=== PATIENT | male | born 1955 | race Caucasian/White ===

== ENCOUNTER → 2018-04-03 13:51 | Outpatient (CLI) | payer MEDICARE, SELFPAY ==
--- NOTE | 2018-04-03 13:58 | CDU_ITS ---
Version 2 Reason For Study: PELON Rt. Velocities/BP Lt. Velocities/BP Prox CCA 61.3/13.4 cm/sec. Prox CCA 83.8/15.2 cm/sec. Mid CCA 64.8/18.1 cm/sec. Mid CCA 76.2/15.8 cm/sec. Dist CCA 73.9/20.5 cm/sec. Dist CCA 58.5/15.7 cm/sec. Prox ICA 35.9/10.5 cm/sec. Prox ICA 109/35.4 cm/sec. Mid ICA 53.8/20.8 cm/sec. Mid ICA 58.8/11.8 cm/sec. Dist ICA 43.3/17.4 cm/sec. Dist ICA 56.2/20.4 cm/sec. Rt. ICA/CCA = 0.83. Lt. ICA/CCA = 1.43. Prox ECA 112/25.1 cm/sec. Prox ECA 138/26.5 cm/sec. Rt. Vert. 38.9/13.7 cm/sec. Lt. Vert. 39.7/10.2 cm/sec. Right Extracranial There is homogeneous, smooth atherosclerotic plaque noted in the right common carotid artery. There is homogeneous, smooth atherosclerotic plaque noted in the right internal carotid artery. There is intimal thickening but no significant atherosclerotic plaque noted in the right external carotid artery. Antegrade flow is noted in the right vertebral artery. There is homogeneous, smooth atherosclerotic plaque noted in the right bulb. Left Extracranial There is homogeneous, smooth atherosclerotic plaque noted in the left common carotid artery. There is heterogeneous, smooth atherosclerotic plaque noted in the left internal carotid artery. There is intimal thickening but no significant atherosclerotic plaque noted in the left external carotid artery. Antegrade flow is noted in the left vertebral artery. Procedure Carotid Duplex [id number]. Exam performed in department. Interpretation Summary Mild (<50%) stenosis right extracranial internal carotid. Mild (<50%) stenosis left extracranial internal carotid. Flow within the vertebral arteries is antegrade bilaterally. A small amount of homogeneous, smooth atherosclerotic plaque is noted in the right carotid bulb, which does not appear to be hemodynamically significant. Ordering Physician: Home Higginbotham Referring Physician: Sincere Lundberg Performed By: Leslee Boss RVT and Student
== END ==
PROVIDERS: Family Provider Family Medicine; PCP Family Medicine; Referring Provider Internal Medicine; Visit Provider Internal Medicine
DX: I65.23 Occlusion and stenosis of bilateral carotid arteries (principal)
CPT/HCPCS: 93880

== ENCOUNTER 2018-10-21 11:01 | Inpatient (IN) | payer MEDICARE, SELFPAY ==
[2018-10-21] VITALS (11 sets, daily range): BP systolic 153–207; BP diastolic 83–123; PULSE 81–93; RESP 16–18; TEMP 36.4–36.8; O2SAT 90–99; BMI 24.8; BMI 25.0
--- NOTE | 2018-10-21 11:39 | RAD_ITS ---
STUDY: X-RAY CHEST REASON FOR EXAM: Male, 63 years old. Chest pain TECHNIQUE: Frontal and lateral views of the chest COMPARISON: None. FINDINGS: The lungs are clear. There are no pleural effusions. There is no pneumothorax. The heart is normal in size. The patient is status post sternotomy. The visualized osseous structures are within normal limits. RAD/Chest PA and Lateral IMPRESSION: No acute thoracic pathology. Electronically Signed: Omer Goldberg, at 12:39 EDT Tel , Service support ,
--- NOTE | 2018-10-21 11:39 | EKG12_ITS ---
Test Reason : FATIGUE Blood Pressure : / mmHG Vent. Rate : 085 BPM Atrial Rate : 085 BPM P-R Int : 134 ms QRS Dur : 090 ms QT Int : 408 ms P-R-T Axes : 041 -02 158 degrees QTc Int : 485 ms Normal sinus rhythm Possible Left atrial enlargement ST & T wave abnormality, consider anterolateral ischemia Prolonged QT Abnormal ECG Confirmed by RAKAN BURNS, PERCY ([id number]), editor managing director VIJAY NOE ([id number]) on 10/23/2018 9:28:59 AM Referred By: Felicia Garcia Confirmed By:PERCY BLEDSOE MD
--- NOTE | 2018-10-21 11:39 | CT_ITS ---
STUDY: CT BRAIN WITHOUT CONTRAST REASON FOR EXAM: Male, 63 years old. Facial numbness RADIATION DOSAGE (If Supplied By Facility): CTDIvol = ( 44.99 ) mGy, DLP = ( 812.98 ) mGycm TECHNIQUE: Transaxial CT imaging of the brain was performed without administration of intravenous contrast material. Individualized dose optimization techniques were used for this CT. COMPARISON: None. FINDINGS: There are old subcentimeter lacunar infarcts in the left basal ganglia and internal capsule. There is no acute bleed or infarct. There are chronic ischemic and atrophic changes. The ventricles are normal in configuration. There is no hydrocephalus. The visualized paranasal sinuses are clear. The mastoid air cells are well aerated. There is no skull fracture. CT/Brain/Head without Contrast IMPRESSION: Old subcentimeter lacunar infarcts in the left basal ganglia and left internal capsule. No acute intracranial abnormality. Chronic ischemic and atrophic changes. Electronically Signed: Omer Goldberg, at 12:25 EDT Tel , Service support ,
--- NOTE | 2018-10-21 11:46 | ED.VIS.GEN ---
History of Present Illness Chief Complaint: Fatigue Informant: Patient Onset: Month(s) Narrative: Patient is a 63-year-old male presenting with multiple complaints including fatigue, sweats, weight loss and abdominal discomfort. Patient states over the past 2 months he symptoms have been worsening. He states that he also feels that he has a knot his stomach. He states his bowel movements have been normal denies any black or bloody stools. He denies any nausea or vomiting. He has had an unintentional 10 pound weight loss over this time. He is also been having sweats but today there is especially severe. Patient denies any associated chest pain, shortness of breath or difficulty breathing. He states this feels different than his angina. Patient also notes that over the past 2 months has had worsening numbness of his right face and loss of taste on the right side of his tongue. He states he has some mild numbness in this area since carotid endarterectomy 2 years ago but the symptoms have worsened over the past 2 months. Patient denies any fever. He has had a mild cough is been nonproductive. He denies any urinary symptoms. He denies any extremity weakness or loss of sensation. He denies any change in his speech. Patient makes a comment that hit one point he was told that he had Crohn's disease but then saw a specialist in [place] who said that he did not. Patient does not currently take any medications on a daily basis. Past Medical History - Allergies and Home Meds Allergies/Adverse Reactions: Allergies codeine Adverse Reaction (Verified 10/21/18 11:02) Upset Stomach Primary Care Physician: Care Physician,No Primary [Primary Care Provider] - Past Medical History: - - Coronary artery disease, history of GA Surgical History: - - Right carotid endarterectomy Lives: Spouse/ Significant Other Smoking Status: Former smoker Review of Systems All systems negative except as indicated General: Reports: Malaise, Sweats Eyes: Denies: Visual changes - bilaterally Respiratory: Reports: Cough Gastrointestinal: Reports: Abdominal pain - knot in stomach Neurological: Reports: Numbness - face, right, - - loss of taste, right side Physical Exam Vital Signs/Narrative: Vital Signs Temp Pulse Resp BP Pulse Ox 10/21/18 11:03 97.6 F L 90 17 207/123 H 99 Inital Vital Signs reviewed: Yes General: Well nourished, Well developed, No Acute Distress Head: Normocephalic, Atraumatic Eyes: Perrl, EOMI ENT: No rhinorrhea, Dry mucous membranes Neck: Supple, Nontender. Negative for: No JVD Cardiovascular: Regular rate, Regular rhythm, No murmurs. Negative for: Murmur Respiratory: No distress, CTA bilaterally, Chest nontender Abdomen: Soft, Nontender, Nondistended, Normal bowel sounds Back: Nontender, Normal Inspection Extremities: Nontender, No edema Skin: Normal color, No rash Neurological: Alert, Oriented x3, Cranial nerves II-XII grossly intact - No Tongue deviation noted, Normal Strength, Parasthesia - Right face, - - NIH - 1 (Facial paresthesia). Negative for: Weakness, Left side facial droop, Right side facial droop Psychological: Normal affect, Normal Mood Diagnostic/Tx/Re-eval Chest X-Ray - ED: 2 View, Read by ED Physician, Read by Radiologist, No Acute Disease Laboratory Results - last 24 hr 10/21/18 10/21/18 10/21/18 11:53 11:53 12:35 WBC 9.4 RBC 5.02 Hgb 14.0 Hct 42.9 MCV 85.5 MCH 27.9 MCHC 32.6 RDW Std Deviation 42.1 RDW Coeff of [place] 13.5 Plt Count 285 MPV 10.8 Immature Gran % (Auto) 0.200 Neut % (Auto) 83.7 H Lymph % (Auto) 9.0 L [place] % (Auto) 6.3 Eos % (Auto) 0.4 Baso % (Auto) 0.4 Absolute Neuts (auto) 7.9 H Absolute Lymphs (auto) 0.84 Nucleated RBC % 0 Sodium 139 Potassium 3.4 L Chloride 104 Carbon Dioxide 25.0 Anion Gap 10 BUN 12 Creatinine 1.38 H Estim Creat Clear Calc 50.73 Est GFR (MDRD) Af Amer 67 Est GFR (MDRD) Non-Af 56 L BUN/Creatinine Ratio 8.7 L Glucose 155 H Calcium 8.6 Total Bilirubin 0.30 AST 11 L ALT 17 Alkaline Phosphatase 108 Troponin I < 0.015 Total Protein 7.3 Albumin 3.4 Globulin 3.9 Albumin/Globulin Ratio 0.9 Lipase 117 Urine Color Yellow Urine Clarity Clear Urine pH 7.0 Ur Specific Reserve 1.010 Urine Protein Negative Urine Glucose (UA) Normal Urine Ketones Negative Urine Occult Blood 50 H Urine Nitrite Negative Urine Bilirubin Negative Urine Urobilinogen Normal Ur Leukocyte Esterase Negative Urine RBC 0-5 SEEN Urine WBC 0-5 SEEN Ur Squamous Epith Cells 0 SEEN Urine Bacteria 0 SEEN Urine Mucus 0 SEEN Diagnostic Data Brain CT 10/21/18 11:39 IMPRESSION: Old subcentimeter lacunar infarcts in the left basal ganglia and left internal capsule. No acute intracranial abnormality. Chronic ischemic and atrophic changes. Electronically Signed: Omer Goldberg, at 12:25 EDT Tel , Service support , Chest X-Ray 10/21/18 11:39 IMPRESSION: No acute thoracic pathology. Electronically Signed: Omer Goldberg, at 12:39 EDT Tel , Service support , - Rhythm Strip Rhythm Strip: Sinus Rhythm Rate: 85 Ectopy: None - EKG Initial EKG Interpretation: - - Normal sinus rhythm WI interval 134 QRS 90 QT/QTc 408/485 Normal axis T wave and inversions in leads I, aVL, V3 through V6, no reciprocal changes - Medical Decision Making Patient is evaluated for sweats, weight loss, generalized myalgia as well as worsening facial paresthesias. Patient does have an NIH of 1 for subjective paresthesias of his face. He is given aspirin in the emergency room after negative head CT. Is not clear if this is a stroke that causes paresthesias however I do think he would benefit from admission for further neurologic evaluation. Patient is not a candidate for TPA regardless because of his right score and the timing of his symptoms. Patient is an abnormal EKG however is not having a STEMI. His troponin is negative and he is not having chest pain. Do not suspect a cardiac cause of his symptoms at this time. In addition patient does have an elevation of his creatinine. His last creatinine was 0.9 however this was in 2013. Patient was given IV fluids. Patient is hypertensive in the emergency room however he does not take blood pressure medications in the ER. It does not require emergent intervention but will be continued to be monitored on the general medical floor. Patient will be admitted to the PCU for further stroke evaluation as well as hydration. He is agreeable with this plan. He is stable at time of disposition. ED Disposition - Plan for ED Patient: Disposition: Home or Assisted Living Diagnosis: Facial paresthesia, TOMMY (acute kidney injury) Referrals: Care Physician,No Primary [Primary Care Provider] -
[2018-10-21 11:58] LABS: Absolute Lymphocyte Count 0.84 X10^3/uL (0.83-4.51); Absolute Neutrophil Count 7.9 X10^3/uL (2.0-7.7); Basophil# 0.04 X10^3/uL; Basophil% 0.4 % (0-1); Eosinophil# 0.04 X10^3/uL; Eosinophils% 0.4 % (0-5); Hematocrit 42.9 % (40-54); Lymphocyte # 0.84 X10^3/ul (4.0); Mean Corp Hgb Conc 32.6 g/dL (32-36); Mean Corpuscular Hgb 27.9 pg (27.0-32.0); Mean Corpuscular Volume 85.5 fL (80-94); Mean Platelet Vol. 10.8 fl (6.2-12.0); Monocyte# 0.59 X10^3/uL; Monocyte% 6.3 % (0-10); NRBC Flagged by Analyzer 0 % (0-5); Neutrophil # 7.85 X10^3/uL (2.7-7.7); Neutrophil % 83.7 % (47-70); Platelet Count 285 K/mm3 (150-450); RBC Distribution Width CV 13.5 % (11.6-14.6); RBC Distribution Width SD 42.1 fl (35.1-43.9); Red Blood Count 5.02 M/mm3 (4.6-6.2); White Blood Count 9.4 K/mm3 (4.4-11.0)
[2018-10-21] MEDS: 0.9% Normal Saline 1,000 ML 1000 ML IV (11:58)
[2018-10-21 12:16] LABS: ALB/GLOB Ratio 0.9 RATIO (0.9-2.4); AST(SGOT) 11 U/L (15-37); Alanine Aminotransfer ALT/SGPT 17 U/L (16-61); Albumin, Serum 3.4 g/dL (3.2-5.0); Alkaline Phosphatase 108 U/L (45-117); Anion Gap 10 (5-15); BUN 12 mg/dL (7-18); BUN/Creat Ratio 8.7 RATIO (10-20); Calcium,Total 8.6 mg/dL (8.5-10.1); Chloride 104 mmol/L (98-107); Creatinine, Serum 1.38 mg/dL (0.70-1.30); EST Glomerular Filtration Rate 56 mL/min (>60); Est Glom Filt Rate - Afr Amer 67 mL/min (>60); Estimated Creatinine Clearance 50.73 ml/min; Globulin 3.9 g/dL (2.2-4.2); Glucose 155 mg/dL (74-106); Lipase 117 U/L (73-393); Potassium 3.4 mmol/L (3.5-5.1); Protein, Total 7.3 g/dL (6.4-8.2); Sodium Level 139 mmol/L (136-145)
[2018-10-21 12:39] LABS: Bacteria 0 SEEN /hpf (None Seen); Mucous, Urine 0 SEEN /hpf (<or=2+); Squamous Epithelial Cells - UA 0 SEEN /hpf (0-5)
[2018-10-21 12:45] LABS: Color, Urine Yellow (Yellow); Glucose, Dipstick Normal (Normal); Ketone-Dipstick Negative (Negative); Leukocyte Esterase-Dipstick Negative /ul (Negative); Nitrite-Dipstick Negative (Negative); Occult Blood-Urine 50 /ul (Negative); Protein-Dipstick Negative (Negative); Urine Bilirubin Dipstick Negative (Negative); Urine Clarity Clear (Clear); Urine Urobilinogen Normal (Normal)
[2018-10-21 13:05] LABS: Red Blood Cells-Urine 0-5 SEEN /hpf (0-5); White Blood Cells 0-5 SEEN /hpf (0-5)
[2018-10-21] MEDS: Aspirin 325 MG Tablet PO (13:42)
--- NOTE | 2018-10-21 14:38 | PCM.HP.STD ---
<Torsten Matias - Last Filed: 10/21/18 14:38> Problem List (1) TOMMY (acute kidney injury) Status: Acute (2) HTN (hypertension) Status: Chronic (3) CAD (coronary artery disease) Status: Chronic (4) HLD (hyperlipidemia) Status: Chronic (5) history of ischemic stroke Status: Chronic History of Present Illness Date of Admission: 10/21/18 Chief Complaint: diaphoresis, generalized weakness The patient is a 63 year old M with pmhx of CAD with prior stents and CABG, pt of Dr. Higginbotham, hx of stroke with residual right facial parasthesias, hx of carotid endarterectomy, who presents to the ER with c/o sudden onset of diaphoresis and generalized weakness. The diaphoresis is what made him come to the ER. He was standing in his kitchen, not exerting himself, and suddenly broke into a severe sweat and felt weak. He did not feel hot at all. He did not have CP or SOB during this, and did not get dizzy or LH. He has not experienced this prior to today. He has had other complaints that have been occurring over the past month. This includes progressive worsening of the right facial parasthesias including loss of taste on the right side of the tongue. His forehead is spared from the parasthessias. He has no other focal weakness. He also complains that for at least a month he has had a knot in his stomach, has poor appetite, has lost 10 lbs. The patient takes no medications. He states he became frustrated with the amount of medications he was on and took himself off of them. 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 Higginbotham about 6 months ago and has an appointment tomorrow. He recently had a carotid US due to the worsening facial numbness, this was not remarkable for a cause of his parasthesias. Today in the ER his BP is markedly elevated initially 207/123, EKG has ST and T wave changes, Creatinine is somewhat elevated, and CT brain is nonacute.[] Past Medical History Past Medical History (Chronic Problems): Chronic Problems HTN (hypertension) (Chronic) CAD (coronary artery disease) (Chronic) HLD (hyperlipidemia) (Chronic) Tobacco user (Chronic) History of myocardial infarction (Chronic) history of ischemic stroke (Chronic) Hypercholesteremia (Chronic) Allergies codeine Adverse Reaction (Verified 10/21/18 11:02) Upset Stomach Home Medications: Ambulatory Orders Medication Instructions Recorded NK 10/21/18 Surgical History: coronary bypass surgery, - - Right carotid endarterectomy Psychiatric History: No pertinent psych hx Lives: Spouse/ Significant Other Smoking Status: Former smoker Tobacco Use: Non-smoker Alcohol: None Drugs: None - *Family History Paternal History Items: Heart Disease Maternal History Items: Unknown Review of Systems Constitutional: Reports: Weakness, Fatigue. Denies: Chills, Fever, Weight Change HEENT: Denies: Head Aches, Sinus Congestion, Sinus Drainage Cardiovascular: Denies: Chest Pain, Palpitations Respiratory: Denies: Cough, Shortness of Breath, Shortness of breath at rest, Shortness of breath upon exertion, Sputum production, Wheezing Gastrointestinal: Denies: Abdominal Pain, Diarrhea, Nausea, Vomiting Genitourinary: Denies: Dysuria Musculoskeletal: Denies: Joint Pain, Joint Tenderness Skin: Denies: Lesions, Rash, Wounds Neurological: Reports: Numbness, - - loss of taste. Denies: Change in Speech, Slurred speech, Confusion, Difficulty swallowing, Focal weakness, Tingling Psychiatric: Denies: Anxiety, Depression, Homicidal Ideations, Suicidal Ideations Hematologic/ Lymphatic: Denies: Easy Bruising, Easy Bleeding VTE Information - Inpt Only VTE Present on Admission: No VTE Mechan Device Prophylaxis: None VTE Pharm Prophylaxis ordered?: Yes Patient Problems: Active and Suspected Problems Facial paresthesia (Acute) TOMMY (acute kidney injury) (Acute) - Physical Exam General: Alert, Oriented x3, Cooperative HEENT: Atraumatic, PERRLA, EOMI, Normocephalic Neck: Supple, No JVD, Negative Carotid Bruits Lungs: Clear to auscultation, Normal air movement Cardiovascular: Regular rate, No murmurs Abdomen: Bowel Sounds Present, Soft, Non Tender Extremities: No edema, Capillary Refill Less than 3 Seconds Skin: No rashes, No breakdown, Incision - healed right carotid endarterectomy, healed sternotomy, - - right face birthmark hyperpigmentation Musculoskeletal: No Tenderness to Palpation of Joints or Extremities Neurological: Cranial nerves II-XII grossly intact Psych/Mental Status: Normal Affect, Appropriate, Alert and oriented to time, place, person, mood and affect Vital Signs Temp Pulse Resp BP Pulse Ox 97.6 F L 84 17 176/108 H 99 10/21/18 11:03 10/21/18 13:39 10/21/18 11:03 10/21/18 13:39 10/21/18 13:39 Oxygen Delivery Method Room Air Weight: 154 lb Body Mass Index (BMI) 24.8 Intake and Output for Last 24 Hours 10/19/18 10/20/18 10/21/18 23:59 23:59 23:59 Intake Total 1000 / 1000 Balance 1000 / 1000 Laboratory Tests Past 24 Hrs 10/21/18 10/21/18 10/21/18 11:53 11:53 12:35 WBC 9.4 RBC 5.02 Hgb 14.0 Hct 42.9 MCV 85.5 MCH 27.9 MCHC 32.6 RDW Std Deviation 42.1 RDW Coeff of [place] 13.5 Plt Count 285 MPV 10.8 Immature Gran % (Auto) 0.200 Neut % (Auto) 83.7 H Lymph % (Auto) 9.0 L [place] % (Auto) 6.3 Eos % (Auto) 0.4 Baso % (Auto) 0.4 Absolute Neuts (auto) 7.9 H Absolute Lymphs (auto) 0.84 Nucleated RBC % 0 Sodium 139 Potassium 3.4 L Chloride 104 Carbon Dioxide 25.0 Anion Gap 10 BUN 12 Creatinine 1.38 H Estim Creat Clear Calc 50.73 Est GFR (MDRD) Af Amer 67 Est GFR (MDRD) Non-Af 56 L BUN/Creatinine Ratio 8.7 L Glucose 155 H Calcium 8.6 Total Bilirubin 0.30 AST 11 L ALT 17 Alkaline Phosphatase 108 Troponin I < 0.015 Total Protein 7.3 Albumin 3.4 Globulin 3.9 Albumin/Globulin Ratio 0.9 Lipase 117 Urine Color Yellow Urine Clarity Clear Urine pH 7.0 Ur Specific [place] 1.010 Urine Protein Negative Urine Glucose (UA) Normal Urine Ketones Negative Urine Occult Blood 50 H Urine Nitrite Negative Urine Bilirubin Negative Urine Urobilinogen Normal Ur Leukocyte Esterase Negative Urine RBC 0-5 SEEN Urine WBC 0-5 SEEN Ur Squamous Epith Cells 0 SEEN Urine Bacteria 0 SEEN Urine Mucus 0 SEEN Assessment/Plan All Active Problems Facial paresthesia (Acute) TOMMY (acute kidney injury) (Acute) 1. Worsening right facial parasthesias, diaphoresis - CT brain non acute. hx stroke with prior Right carotid endarterectomy. Obtain MRI brain and echo. Start aspirin and statin. prn hydralazine if SBP >200. Consider Neuro consult. Check B12 and TSH. Recent carotid US in EMR. <50% stenosis BL. UA is negative. CXR is negative. PTOT for generalized debility and with ST part of stroke workup. q4h NIHSS. FLP in AM. 2. CAD with prior EKG with ST and T wave abnormalities - need to obtain EKG from recent cardiology visit (Dr. Higginbotham) for comparison. Diaphoresis is alarming, as is his complete lack of any daily medication, and the presence of EKG abnormalities. Trop is negative. This will need cycled, he will need to stay on tele, and he will need an echo in the AM. Repeat EKG in AM. 3. TOMMY - IV fluids overnight. BMP in AM. Replace K. 4. hx CVA - some right sided facial numbness is chronic, but it is much worse lately. 5. Chronic lower back pain - Pt of Dr. Montague. Treats this conservatively on his own. DVT ppx: heparin DC planning: PTOT, stroke workup. This patient was seen by Torsten Matias PA-C under the supervision of Dr. Garcia. <Felicia Garcia - Last Filed: 10/21/18 16:50> History of Present Illness The patient is a 63 year old M [] Past Medical History Allergies codeine Adverse Reaction (Verified 10/21/18 11:02) Upset Stomach - Physical Exam Vital Signs Temp Pulse Resp BP Pulse Ox 97.8 F 84 16 165/102 H 90 10/21/18 16:15 10/21/18 16:23 10/21/18 16:23 10/21/18 16:23 10/21/18 16:23 Oxygen Delivery Method Room Air Weight: 70.2 kg Body Mass Index (BMI) 25.0 Intake and Output for Last 24 Hours 10/19/18 10/20/18 10/21/18 23:59 23:59 23:59 Intake Total 1000 / 1000 Balance 1000 / 1000 Laboratory Tests Past 24 Hrs 10/21/18 10/21/18 10/21/18 11:53 11:53 11:53 WBC 9.4 RBC 5.02 Hgb 14.0 Hct 42.9 MCV 85.5 MCH 27.9 MCHC 32.6 RDW Std Deviation 42.1 RDW Coeff of [place] 13.5 Plt Count 285 MPV 10.8 Immature Gran % (Auto) 0.200 Neut % (Auto) 83.7 H Lymph % (Auto) 9.0 L [place] % (Auto) 6.3 Eos % (Auto) 0.4 Baso % (Auto) 0.4 Absolute Neuts (auto) 7.9 H Absolute Lymphs (auto) 0.84 Nucleated RBC % 0 Sodium 139 Potassium 3.4 L Chloride 104 Carbon Dioxide 25.0 Anion Gap 10 BUN 12 Creatinine 1.38 H Estim Creat Clear Calc 50.73 Est GFR (MDRD) Af Amer 67 Est GFR (MDRD) Non-Af 56 L BUN/Creatinine Ratio 8.7 L Glucose 155 H Hemoglobin A1c 5.2 Calcium 8.6 Total Bilirubin 0.30 AST 11 L ALT 17 Alkaline Phosphatase 108 Troponin I < 0.015 Total Protein 7.3 Albumin 3.4 Globulin 3.9 Albumin/Globulin Ratio 0.9 Lipase 117 Vitamin B12 TSH Urine Color Urine Clarity Urine pH Ur Specific [place] Urine Protein Urine Glucose (UA) Urine Ketones Urine Occult Blood Urine Nitrite Urine Bilirubin Urine Urobilinogen Ur Leukocyte Esterase Urine RBC Urine WBC Ur Squamous Epith Cells Urine Bacteria Urine Mucus 10/21/18 10/21/18 10/21/18 11:53 12:35 15:25 WBC RBC Hgb Hct MCV MCH MCHC RDW Std Deviation RDW Coeff of [place] Plt Count MPV Immature Gran % (Auto) Neut % (Auto) Lymph % (Auto) [place] % (Auto) Eos % (Auto) Baso % (Auto) Absolute Neuts (auto) Absolute Lymphs (auto) Nucleated RBC % Sodium Potassium Chloride Carbon Dioxide Anion Gap BUN Creatinine Estim Creat Clear Calc Est GFR (MDRD) Af Amer Est GFR (MDRD) Non-Af BUN/Creatinine Ratio Glucose Hemoglobin A1c Calcium Total Bilirubin AST ALT Alkaline Phosphatase Troponin I Total Protein Albumin Globulin Albumin/Globulin Ratio Lipase Vitamin B12 Pending TSH 0.64 Urine Color Yellow Urine Clarity Clear Urine pH 7.0 Ur Specific [place] 1.010 Urine Protein Negative Urine Glucose (UA) Normal Urine Ketones Negative Urine Occult Blood 50 H Urine Nitrite Negative Urine Bilirubin Negative Urine Urobilinogen Normal Ur Leukocyte Esterase Negative Urine RBC 0-5 SEEN Urine WBC 0-5 SEEN Ur Squamous Epith Cells 0 SEEN Urine Bacteria 0 SEEN Urine Mucus 0 SEEN 10/21/18 15:25 WBC RBC Hgb Hct MCV MCH MCHC RDW Std Deviation RDW Coeff of [place] Plt Count MPV Immature Gran % (Auto) Neut % (Auto) Lymph % (Auto) [place] % (Auto) Eos % (Auto) Baso % (Auto) Absolute Neuts (auto) Absolute Lymphs (auto) Nucleated RBC % Sodium Potassium Chloride Carbon Dioxide Anion Gap BUN Creatinine Estim Creat Clear Calc Est GFR (MDRD) Af Amer Est GFR (MDRD) Non-Af BUN/Creatinine Ratio Glucose Hemoglobin A1c Calcium Total Bilirubin AST ALT Alkaline Phosphatase Troponin I < 0.015 Total Protein Albumin Globulin Albumin/Globulin Ratio Lipase Vitamin B12 TSH Urine Color Urine Clarity Urine pH Ur Specific [place] Urine Protein Urine Glucose (UA) Urine Ketones Urine Occult Blood Urine Nitrite Urine Bilirubin Urine Urobilinogen Ur Leukocyte Esterase Urine RBC Urine WBC Ur Squamous Epith Cells Urine Bacteria Urine Mucus Assessment/Plan This patient was seen in conjunction with GINI Benito. I have independently interviewed and examined the patient and reviewed pertinent historical, laboratory, and other data. Please refer to GINI Benito note for his patient's presentation, findings, and recommendations. I have reviewed and his note and concur with his documentation CC: Diaphoresis, generalized weakness HPI: 63-year-old male past medical history of CAD status post CABG, history of carotid endarterectomy who comes in with sudden onset of diaphoresis and generalized weakness. He denied any associated chest pain or shortness of breath or dizziness or palpitation. He has not eaten today but does not believe is related to low blood sugar. He complains also of progressive worsening right facial paresthesia and loss of taste to the right side of the tongue and tingling numbness to the lips. This has been ongoing for years but worsening over the past 1 year. He also complains of poor appetite with weight loss. Cannot remember when he last had his colonoscopy. He has not followed up with a primary care doctor. He has taken himself off all his medications and currently takes no medications. PMHX: As above PSHx: s/p CABG and left carotid endarterectomy FHX: Father has heart disease, mother - unknown SHX: Denies any history of alcohol illicit drug use or smoking Physical Exam: Vitals: BP 207/123 on arrival, temperature 97.6 F, heart rate is 90, respiratory 70, SPO2 is 99% on room air Gen: Comfortable, not pale, not jaundiced, well-hydrated CVS:HS I +II, regular, no murmurs RESP: Clinically clear to auscultation GI: BS present and normal, soft, nontender, no palpable organs EXT:No edema Labs: CBCD is unremarkable, sodium is 139, potassium 3.4, chloride 104, bicarbonate 25, BUN 12, creatinine 1.38, HbA1c is 5.2, troponins x2 is negative EKG shows T wave depression in lead I, II, aVL, V3 to V6. He has EKG shows normal sinus rhythm and this was in 2010 before his CABG ASSESSMENT: 1. Generalized weakness/debility, unclear etiology 2. TOMMY, likely prerenal 3. Hypokalemia 4. Hypertensive urgency 5. Acute on chronic paresthesias 6. History of CABG/left carotid endarterectomy Plan: Admit to PCU, monitor on telemetry IV fluids, repeat blood work in a.m. Replace potassium Monitor blood pressure, hydralazine as needed MRI of the brain; positive, would need neurology consult Trend troponins, repeat EKG in a.m. Aspirin 81 mg p.o. daily, atorvastatin 20 mg p.o. daily, lipid profile in a.m. Code Visit Inpatient E&M: 98321 Init Hosp L3
--- NOTE | 2018-10-21 15:07 | ECHOD_ITS ---
Reason For Study: TIA/CVA Procedure This was a 2D Doppler, Color Flow transthoracic echocardiogram. Exam performed portable in patient room. Left Ventricle Normal LV size. The estimated ejection fraction is 20 %. Stage 2 diastolic dysfunction. No regional wall motion abnormalities noted. Right Ventricle Normal RV size. Normal systolic function. Atria Normal left atrium. Normal right atrium. Mitral Valve Bileaflet diffuse mitral valve thickening. Mild (1+) eccentric mitral valve insufficiency. Tricuspid Valve Normal tricuspid valve. Moderate (2+) tricuspid valve insufficiency. Moderate pulmonary hypertension. Pulmonary artery systolic pressure is 70 mmHg. Aortic Valve Trisinus/trileaflet aortic valve. Mild focal aortic valve calcification. Mild (1+) aortic valve insufficiency. Pulmonic Valve Normal pulmonic valve. Great Vessels Normal aortic root. The pulmonary artery is normal size. Normal inferior vena cava. Pericardium/Pleural No pericardial effusion. Medication Negative bubble study on previous echo. MMode/2D Measurements & Calculations LVIDd: 4.9 cm IVSd: 1.2 cm Ao root diam: 4.1 cm LVIDs: 4.3 cm LVPWd: 1.1 cm RVDd: 3.0 cm FS: 11.6 % LAV(MOD-bp): 64.2 ml EDV(MOD-sp4): 123.1 ml EDV(MOD-sp2): 121.6 ml LAV(MOD-bp) Indexed: 35.9 ml/m2 ESV(MOD-sp4): 96.6 ml EF(MOD-sp2): 16.2 % LAV(MOD-sp2): 59.9 ml EF(MOD-sp4): 21.5 % LAV(MOD-sp4): 64.6 ml SV(MOD-sp4): 26.4 ml SV(MOD-sp2): 19.7 ml LA A4 area: 20.3 cm2 LA dimension(2D): 3.9 cm RA A4 area: 15.7 cm2 Doppler Measurements & Calculations MV E max anthony: 111.8 cm/sec Lat Peak E' Anthony: 4.2 cm/sec Med Peak E' Anthony: 4.1 cm/sec MV A max anthony: 74.9 cm/sec E/E' lat: 26.6 E/E' med: 27.5 MV E/A: 1.5 Ao V2 max: 171.4 cm/sec LV V1 max: 84.6 cm/sec PA V2 max: 85.9 cm/sec Ao max P.7 mmHg LV V1 max P.9 mmHg TR max anthony: 399.2 cm/sec TR max P.9 mmHg Interpretation Summary Normal LV size. The estimated ejection fraction is 20 %. Stage 2 diastolic dysfunction. Moderate pulmonary hypertension. Pulmonary artery systolic pressure is 70 mmHg. The global longitudinal strain is severely abnormal. The global longitudinal strain = -7.1% (abnormal). Ordering Physician: Felicia Garcia Referring Physician: Felicia Garcia Performed By: Kasey Phoenix RDCS
[2018-10-21] MEDS: 0.9% Normal Saline 1,000 ML 100 ML IV (15:39)
[2018-10-21 15:40] LABS: Hemoglobin A1c 5.2 % (4.2-6.3)
[2018-10-21 15:57] LABS: Thyroid Stim Hormone (TSH) 0.64 uIU/mL (0.358-3.74)
[2018-10-21] MEDS: Atorvastatin Calcium 20 MG Tablet PO (21:14)
[2018-10-21] MEDS: Heparin Injection (Vial) 5,000 UNIT/ML VIAL 5000 UNIT SC (21:20)
[2018-10-21] MEDS: MELATONIN 3 MG TABLET PO (21:49)
[2018-10-22] VITALS (21 sets, daily range): BP systolic 141–186; BP diastolic 85–120; PULSE 77–105; RESP 14–18; TEMP 36.5–36.7; O2SAT 93–99
[2018-10-22] MEDS: 0.9% Normal Saline 1,000 ML 100 ML IV (00:59)
[2018-10-22] MEDS: Heparin Injection (Vial) 5,000 UNIT/ML VIAL 5000 UNIT SC ×2 (05:39→21:28)
[2018-10-22 05:50] LABS: Absolute Lymphocyte Count 2.03 X10^3/uL (0.83-4.51); Absolute Neutrophil Count 4.7 X10^3/uL (2.0-7.7); Basophil# 0.04 X10^3/uL; Basophil% 0.5 % (0-1); Eosinophil# 0.02 X10^3/uL; Eosinophils% 0.3 % (0-5); Hematocrit 39.9 % (40-54); Hemoglobin 13.3 g/dL (13.0-16.5); Lymphocyte # 2.03 X10^3/ul (4.0); Lymphocyte % 27.1 % (19-41); Mean Corp Hgb Conc 33.3 g/dL (32-36); Mean Corpuscular Hgb 28.7 pg (27.0-32.0); Mean Platelet Vol. 11.3 fl (6.2-12.0); Monocyte# 0.67 X10^3/uL; Monocyte% 8.9 % (0-10); NRBC Flagged by Analyzer 0 % (0-5); Neutrophil # 4.73 X10^3/uL (2.7-7.7); Neutrophil % 63.1 % (47-70); Platelet Count 262 K/mm3 (150-450); RBC Distribution Width CV 13.6 % (11.6-14.6); RBC Distribution Width SD 42.9 fl (35.1-43.9); Red Blood Count 4.64 M/mm3 (4.6-6.2); White Blood Count 7.5 K/mm3 (4.4-11.0)
[2018-10-22 06:13] LABS: ALB/GLOB Ratio 0.9 RATIO (0.9-2.4); AST(SGOT) 14 U/L (15-37); Alanine Aminotransfer ALT/SGPT 16 U/L (16-61); Albumin, Serum 2.9 g/dL (3.2-5.0); Alkaline Phosphatase 89 U/L (45-117); Anion Gap 8 (5-15); BUN 13 mg/dL (7-18); BUN/Creat Ratio 11.9 RATIO (10-20); Calcium,Total 8.3 mg/dL (8.5-10.1); Chloride 112 mmol/L (98-107); Cholesterol 198 mg/dL (200); Creatinine, Serum 1.09 mg/dL (0.70-1.30); EST Glomerular Filtration Rate 73 mL/min (>60); Est Glom Filt Rate - Afr Amer 88 mL/min (>60); Estimated Creatinine Clearance 64.22 ml/min; Globulin 3.3 g/dL (2.2-4.2); Glucose 93 mg/dL (74-106); High Density Lipoprotein 33 mg/dL; Potassium 3.8 mmol/L (3.5-5.1); Protein, Total 6.2 g/dL (6.4-8.2); Sodium Level 144 mmol/L (136-145); Triglycerides 233 mg/dL; Very Low Density Lipoprotein 47 mg/dL (5-40)
--- NOTE | 2018-10-22 08:30 | MRI_ITS ---
STUDY: MRI BRAIN WITHOUT CONTRAST REASON FOR EXAM: Male, 63 years old. CVA. Increased fatigue. History of prior CVA with residual right facial paresthesias. TECHNIQUE: Standardized multiplanar fat and water weighted pulse sequences were obtained. COMPARISON: CT head without contrast 10/21/2018. FINDINGS: No restricted diffusion to suspect acute or subacute ischemic infarct. Normal size of the ventricles and extra-axial spaces for the patient's age. Few white matter T2 FLAIR hyperintensity foci in both cerebral hemispheres are chronic white matter ischemic changes. They are in the central low convexities and in the periventricular white matter. Old lacunar cystic infarcts in the right parietal lobe subcortical white matter and in the left anterior periventricular white matter. Normal bilateral basal ganglia. Normal thalami. There is no extra-axial fluid accumulation. Normal flow voids within the major intracranial circulation suggesting patency by spin echo criteria. Normal sella turcica, pituitary gland, infundibular stalk, optic chiasm and hypothalamus. Normal tectal plate and pineal gland. Old lacunar cystic infarcts in the right and left central pontine tegmentum and chronic ischemic changes across the central pontine tegmentum. Normal midbrain and medulla. Normal cerebellum. Normal basal cisterns. Normal bilateral temporal bones. Normal bilateral internal auditory canals. No demonstrated orbital abnormality, within the constraints of a routine brain study. Normal visualized paranasal sinuses. Normal calvarium and skull base. Normal visualized soft tissue structures. Normal visualized upper cervical spine. MRI/Brain without Contrast IMPRESSION: 1. No MRI evidence of acute or subacute ischemic infarct or acute intracranial abnormality. 2. Old lacunar cystic infarcts in the right and left central pontine tegmentum and surrounded by chronic ischemic changes across the central pontine tegmentum. 3. Old lacunar cystic infarct in the right parietal lobe subcortical white matter and old lacunar linear cystic infarct in the left anterior periventricular white matter. 4. Few chronic white matter ischemic changes in both cerebral hemispheres. Electronically Signed: Jatinder Powell MD at 10:05 EDT , Service support ,
[2018-10-22 08:45] LABS: Vitamin B12 334 pg/mL (211-911)
[2018-10-22] MEDS: Aspirin 81 MG TAB.CHEW PO (09:53)
--- NOTE | 2018-10-22 10:15 | CASEMGMT ---
RN CM RELOCATION DIRECTOR CM to room to meet with patient for initial transition planning/care coordination assessment. EFREM ALDRICH introduced self and role at [facility]. Pt voices understanding and consents to assessment at this time. Pt resting in bed in no distress at this time. Pt is A/O at this time and answers all questions appropriately. Care providers, pharmacy, and demographics verified/updated at this time. PCP: No PCP. Given list of local PCP's. Specialists: Dr Galen Higginbotham--library technology instructor in [place]. Preferred Pharmacy: [facility] Insurance: [employer] A [employer] B. Prescription Benefit: Denies. States he has no concerns w/paying for any prescriptions he may be discharged home on. Living Will/HPOA: Has both LW and HCPOA, who is his , Harper. He states he will see if she can bring in copies to place on file @ [facility]. LNOK: . 2 Sons Living Arrangements: Lives with his . Son lives with them. Pt states he is independent. Transportation: Pt states drives self and states no transportation concerns at this time. will drive him home @ D/C DME: Denies using any DME and denies needs. HHC/SNF: No history of either and denies needs. No needs identified. Pt wishes to return home and states has no concerns with going home at time of discharge. CM to follow for any further discharge planning/needs. Pt voices no further concerns/needs at this time. Advised pt to ask for CM if any further questions/concerns/needs arise. Voices understanding. PLAN: Home w/spousal support and discharge plans in place. Alexia POPE RN, CM
[2018-10-22] MEDS: 0.9% NaCl Peripheral Flush Adult/Peds IV (11:10)
[2018-10-22] MEDS: hydrALAZINE 20 MG/ML Vial 5 MG IV (11:50)
--- NOTE | 2018-10-22 13:02 | NURSING ---
Called report to Elizabeth TOPETE in [place] lab technician
--- NOTE | 2018-10-22 13:27 | CON.PCM_ITS ---
Reason for Consult Date of Consultation: 10/22/18 Reason for Consultation: Abnormal echocardiogram. History of Present Illness: The patient is a 63 year old M with a past miss medical history of coronary artery disease status post previous, coronary artery bypass surgery approximately 5 years ago. He also has a history of carotid endarterectomy and he presented to the emergency room with episodes of diaphoresis generalized weakness. He did not have any chest pain or shortness of breath or paroxysmal nocturnal dyspnea. He says that for about a month he is lost some weight he has had paresthesias and he is also had abdominal discomfort. He recently had a carotid ultrasound for worsening facial numbness. In the emergency room he presented and was noted to have markedly elevated blood pressure. EKG changes were also noted. An echocardiogram was performed today and he was noted to have severely reduced left ventricular ejection fraction which was global estimated at approximately 20%. Audiology was called to evaluate him. Past Medical History Allergies/Adverse Reactions: Allergies codeine Adverse Reaction (Verified 10/21/18 11:02) Upset Stomach Home Medications: Ambulatory Orders Medication Instructions Recorded NK 10/21/18 Past Medical History (Chronic Problems): Chronic Problems HTN (hypertension) (Chronic) CAD (coronary artery disease) (Chronic) HLD (hyperlipidemia) (Chronic) Tobacco user (Chronic) History of myocardial infarction (Chronic) history of ischemic stroke (Chronic) Hypercholesteremia (Chronic) Surgical History: coronary bypass surgery, - - Right carotid endarterectomy Psychiatric History: No pertinent psych hx - *Family History Paternal History Items: Heart Disease Maternal History Items: Unknown Lives: Spouse/ Significant Other Smoking Status: Former smoker Tobacco Use: Non-smoker Alcohol: None Drugs: None Review of Systems - Review of Systems General: Denies: Fever, Night Sweats, Fatigue HEENT: Denies: Vision Change Cardiovascular: Denies: Chest Discomfort, Shortness of Breath, Orthopnea, PND, Peripheral Edema, Palpitations, Lightheadedness, Dizziness, Near Syncope, Syncope Respiratory: Denies: Cough, Sputum Production, Hemoptysis Gastrointestinal: Denies: Indigestion, Hematemesis, Hematochezia, Melena Genitourinary: Denies: Dysuria, Hematuria Muscoloskeletal: Denies: Myalgias Skin: Denies: Rash Neurological: Denies: Dizziness Psychiatric: Denies: Anxiety Endocrine: Denies: Heat Intolerance Hematologic/ Lymphatic: Denies: Anemia Subjectve: Pleasant gentleman in no distress Objective: Vital Signs Temp Pulse Resp BP Pulse Ox 97.8 F 103 H 18 179/98 H 96 10/22/18 12:49 10/22/18 12:49 10/22/18 12:49 10/22/18 12:49 10/22/18 12:49 Oxygen Delivery Method Room Air Weight: 158 lb 1.143 oz Body Mass Index (BMI) 25.0 Intake and Output for Last 24 Hours 10/20/18 10/21/18 10/22/18 23:59 23:59 23:59 Intake Total 1737 / 2287 3063.33 / 3063.33 Output Total 1920 / 1920 Balance 1737 / 2287 1143.33 / 1143.33 General: Awake, Alert, Oriented x 3 HEENT: PERRL, EOMI, Sclera Non Icteric Neck: Supple, Good ROM, No Lymph Node Enlargement Lungs: Clear to auscultation Cardiovascular: Regular Rhythm, Normal S1, Normal S2, No Murmurs, No Rubs, No Gallops Vascular: No Carotid Bruits, Normal Femoral Pulses, Normal Radial Pulses, Normal Dorsalis Pedal Pulse, Normal Posterior Tibial Pulses Abdomen: Bowel Sounds Present, Soft, Non Tender, No HSM, No Organomegaly Extremities: No Cyanosis, No Clubbing, No edema Musculoskeletal: No Erythema Skin: No Rashes Lymphatic: No Lymph Node Enlargement Neurological: No Focal Motor or Sensory Deficit Psych/Mental Status: Appropriate 10/21/18 11:53: Hemoglobin A1c 5.2 10/21/18 15:25: Troponin I < 0.015 10/21/18 18:07: Troponin I < 0.015 10/22/18 05:24: WBC 7.5, RBC 4.64, Hgb 13.3, Hct 39.9 L, MCV 86.0, MCH 28.7, MCHC 33.3, Plt Count 262, MPV 11.3, Immature Gran % (Auto) 0.100, Neut % (Auto) 63.1, Lymph % (Auto) 27.1, [place] % (Auto) 8.9, Eos % (Auto) 0.3, Baso % (Auto) 0.5, Absolute Neuts (auto) 4.7, Nucleated RBC % 0 10/22/18 05:24: Sodium 144, Potassium 3.8, Chloride 112 H, Carbon Dioxide 24.0, Anion Gap 8, BUN 13, Creatinine 1.09, Est GFR (MDRD) Af Amer 88, Est GFR (MDRD) Non-Af 73, BUN/Creatinine Ratio 11.9, Glucose 93, Calcium 8.3 L, Total Bilirubin 0.30, Triglycerides 233 H, Cholesterol 198, LDL Cholesterol 118, VLDL Cholesterol 47 H, HDL Cholesterol 33 L Rhythm: EKG: ECHO: Stress Test: Cardiac Cath: PCI: CT Surgery: Holter monitor: EPS: PPM: CXR: Chest CT Scan: Assessment/Plan 1. Abnormal left ventricular ejection fraction * Patient presents with symptoms that are nondescript markedly hypertensive and has an abnormal ejection fraction estimated to be 20%. The etiology of the above is unclear but ischemic cardiomyopathy needs to be excluded and therefore he will undergo a left heart catheterization and depending on the findings further recommendations will be made. The risk benefits alternatives were explained to him he understands and agrees to proceed. * 2. Hypertension * Blood pressure appears to be uncontrolled at this time and I suspect that this may be the etiology for his reduced ejection fraction. He does not appear to be segmental and therefore coronary disease may be unlikely or unrelated. * Appropriate adjustments to his blood pressure medication will be made afterwards. * Coronary artery bypass surgery * He does have a history of coronary artery bypass surgery but he has not had any cardiac evaluation in years and has also not been on any medications. * Have been able to convince him that he should start on secondary prevention and once again this will be forced after all this has transpired. * Will start low-dose statin with pravastatin. Patient has not tolerated other statins in the past. * Thank you for allowing me to participate in his care. * Addendum: Cardiac catheterization undertaken via the left radial artery. Left internal mammary artery noted to be patent and filling the left anterior descending artery as well as fixed filling distal right collaterals Totally occluded proximal right coronary artery Left main coronary artery with 40% proximal and 50% distal stenosis Left anterior descending artery totally occluded Left circumflex artery with moderate diffuse disease Aortogram demonstrating no other bypass grafts noted Left ventriculogram demonstrating globally reduced left ventricular systolic function estimated at 25% Severe hypertension Based on the above angiographic findings it appears that the left ventricular systolic dysfunction is due to a combination of severe hypertension as well as coronary artery disease. The plan would be to continue to aggressively treat him as noted above. Would like to observe today and discharge him in a.m.
--- NOTE | 2018-10-22 13:39 | PCM.PROGNOTE ---
Patient Problems: Active and Suspected Problems Facial paresthesia (Acute) TOMMY (acute kidney injury) (Acute) Subjective: Since admission, pt c/o a dry cough, and a posterior headache with neck pain. He has no SOB or LE edema. He has no increased O2 demand. No CP/pressure/palp/heaviness. Pts echo showed EF 20%. MRI without stroke. Pt agreeable to heart cath. - Physical Exam General: Alert, Oriented x3, Cooperative HEENT: Atraumatic, PERRLA, EOMI, Normocephalic Neck: Supple, No JVD, Negative Carotid Bruits Lungs: Clear to auscultation, Normal air movement Cardiovascular: Regular rate, No murmurs Abdomen: Bowel Sounds Present, Soft, Non Tender Extremities: No edema, Capillary Refill Less than 3 Seconds Skin: No rashes, No breakdown Musculoskeletal: No Tenderness to Palpation of Joints or Extremities Neurological: Cranial nerves II-XII grossly intact Psych/Mental Status: Agitated, Alert and oriented to time, place, person, mood and affect Vital Signs Temp Pulse Resp BP Pulse Ox 97.8 F 103 H 18 179/98 H 96 10/22/18 12:49 10/22/18 12:49 10/22/18 12:49 10/22/18 12:49 10/22/18 12:49 Oxygen Delivery Method Room Air Weight: 158 lb 1.143 oz Body Mass Index (BMI) 25.0 Intake and Output for Last 24 Hours 10/20/18 10/21/18 10/22/18 23:59 23:59 23:59 Intake Total 1737 / 2287 3063.33 / 3063.33 Output Total 1920 / 1920 Balance 1737 / 2287 1143.33 / 1143.33 Laboratory Tests Past 24 Hrs 10/21/18 10/21/18 10/21/18 11:53 11:53 15:25 WBC RBC Hgb Hct MCV MCH MCHC RDW Std Deviation RDW Coeff of [place] Plt Count MPV Immature Gran % (Auto) Neut % (Auto) Lymph % (Auto) [place] % (Auto) Eos % (Auto) Baso % (Auto) Absolute Neuts (auto) Absolute Lymphs (auto) Nucleated RBC % Sodium Potassium Chloride Carbon Dioxide Anion Gap BUN Creatinine Estim Creat Clear Calc Est GFR (MDRD) Af Amer Est GFR (MDRD) Non-Af BUN/Creatinine Ratio Glucose Hemoglobin A1c 5.2 Calcium Total Bilirubin AST ALT Alkaline Phosphatase Troponin I Total Protein Albumin Globulin Albumin/Globulin Ratio Triglycerides Cholesterol LDL Cholesterol VLDL Cholesterol HDL Cholesterol Vitamin B12 334 TSH 0.64 10/21/18 10/21/18 10/22/18 15:25 18:07 05:24 WBC 7.5 RBC 4.64 Hgb 13.3 Hct 39.9 L MCV 86.0 MCH 28.7 MCHC 33.3 RDW Std Deviation 42.9 RDW Coeff of [place] 13.6 Plt Count 262 MPV 11.3 Immature Gran % (Auto) 0.100 Neut % (Auto) 63.1 Lymph % (Auto) 27.1 [place] % (Auto) 8.9 Eos % (Auto) 0.3 Baso % (Auto) 0.5 Absolute Neuts (auto) 4.7 Absolute Lymphs (auto) 2.03 Nucleated RBC % 0 Sodium Potassium Chloride Carbon Dioxide Anion Gap BUN Creatinine Estim Creat Clear Calc Est GFR (MDRD) Af Amer Est GFR (MDRD) Non-Af BUN/Creatinine Ratio Glucose Hemoglobin A1c Calcium Total Bilirubin AST ALT Alkaline Phosphatase Troponin I < 0.015 < 0.015 Total Protein Albumin Globulin Albumin/Globulin Ratio Triglycerides Cholesterol LDL Cholesterol VLDL Cholesterol HDL Cholesterol Vitamin B12 TSH 10/22/18 05:24 WBC RBC Hgb Hct MCV MCH MCHC RDW Std Deviation RDW Coeff of [place] Plt Count MPV Immature Gran % (Auto) Neut % (Auto) Lymph % (Auto) [place] % (Auto) Eos % (Auto) Baso % (Auto) Absolute Neuts (auto) Absolute Lymphs (auto) Nucleated RBC % Sodium 144 Potassium 3.8 Chloride 112 H Carbon Dioxide 24.0 Anion Gap 8 BUN 13 Creatinine 1.09 Estim Creat Clear Calc 64.22 Est GFR (MDRD) Af Amer 88 Est GFR (MDRD) Non-Af 73 BUN/Creatinine Ratio 11.9 Glucose 93 Hemoglobin A1c Calcium 8.3 L Total Bilirubin 0.30 AST 14 L ALT 16 Alkaline Phosphatase 89 Troponin I Total Protein 6.2 L Albumin 2.9 L Globulin 3.3 Albumin/Globulin Ratio 0.9 Triglycerides 233 H Cholesterol 198 LDL Cholesterol 118 VLDL Cholesterol 47 H HDL Cholesterol 33 L Vitamin B12 TSH Medical Necessity - Tobacco Use Smoking Status: Former smoker Tobacco Use: Non-smoker Assessment/Plan All Active Problems Facial paresthesia (Acute) TOMMY (acute kidney injury) (Acute) 1. Diaphoresis, right facial numbness - MRI negative for stroke. Echo with EF 20%. Moderate pulmonary HTN, st2 diastolic dysfunction. Trop negative x3. Cardiology consulted. Waiting for records from Dr. Higginbotham's office. EKG changes unclear if these are new. Again need records for comparison. He is agreeable to heart cath today. He was taking no medications at home because he was frustrated with how many medications he was on and took himself off everything. BP is still poorly controlled. PRN hydralazine. 2. CAD with prior EKG with ST and T wave abnormalities - as above. 3. TOMMY - IV fluids overnight. BMP in AM. Replace K. 4. hx CVAs - some right sided facial numbness is chronic to some extent. Again MRI without acute infarct. Labile affect with angry outbursts and refusal for care. I had a discussion with his about this. He has episodes where he gets angry and does not want treatment. This has been an issue since his strokes in the past. He would benefit from mental health, counselling services at [place]. 5. Chronic lower back pain - Pt of Dr. Montague. Treats this conservatively on his own. DVT ppx: heparin DC planning: PTOT, stroke workup. This patient was seen by Torsten Matias PA-C under the supervision of Dr. Collins.
--- NOTE | 2018-10-22 14:38 | CL.D_ITS ---
Patient Name: ДМИТРИЙ BOJORQUEZ Study Date: 10/22/2018 Performing: Mendel Mckeon MD Ht: 66 inches 168 cm : 1955 Wt: 158.9 lbs 72 kg Age: 63 Gender: male BSA: 1.82 PROCEDURE(S) PERFORMED GA85-KFE/COR/LV/CABG DC11-AO ROOT ANGIO WITH HEART CATH CLINICAL PROFILE AND INDICATIONS Indications: Cardiomyopathy Heart Failure: None Stress/Imaging Stress/Image Study Performed: No CAD Presentations: No Sxs, no angina. CONCLUSIONS Severe [place] coronary artery disease involving a totally occluded left anterior descending artery an d right coronary artery, patent left internal mammary artery to left anterior descending artery with [id number] collaterals, mild to moderate disease left circumflex artery. Severe left ventricular systolic dysfunction with EF of 20 to 25%. RECOMMENDATIONS Medical therapy DESCRIPTION OF PROCEDURE The patient arrived to the procedure lab. The risks and benefits of the procedure as well as a full d escription of our services here and current unavailability of surgical backup were fully explained to the patient and/or their significant other prior to the catheterization. The Timeout was completed, verifying the correct patient and procedure. The patient's procedural site was prepped and draped in the usual fashion. Local anesthetic was given subcutaneously to left radial region with Lidocaine 2%. Using a modified Seldinger technique, arterial access was obtained via the left radial artery, a 6Fr sheath was inserted. Left internal mammary artery graft to the LAD selective angiography was perfor med in multiple views using a 5 Fr. IM catheter. Left Coronary Artery selective angiography was perfo rmed in multiple views using a 5 Fr. JL4 catheter. Right Coronary Artery selective angiography was th en performed in multiple views using a 5 Fr. JR 4 catheter. Ascending (root) aorta selective angiography was then performed in single view using a 5 Fr. pigtail catheter. Ascending (ro ot) aorta selective angiography was then performed in single view using a 5 Fr. pigtail catheter. Lef t Ventriculography was performed in EDWARDS projection using a 5 Fr. Pigtail catheter. LV to AO pullback pressures were then recorded.The arterial sheath was pulled and a TR Band was applied for hemostasis CORONARY ANGIOGRAPHY DOMINANCE: Right Dominant LEFT HEART ASSESSMENT Left Ventricular Ejection Fraction: by LV Gram 20 % No other saphenous vein graft findings noted with aortogram. LEFT MAIN: Proximal 40% stenosis and distal 50% stenosis LEFT ANTERIOR DESCENDING ARTERY: OSTIAL LAD: is occluded CIRCUMFLEX ARTERY: Moderate luminal irregularities up to 50% RIGHT CORONARY ARTERY: PROX RCA: is occluded GRAFTS: LIU graft to the Mid LAD is patent COLLATERAL FLOW: Collateral flow from Left to Right AORTIC ROOT: Dilated COMPLICATIONS No Complications PROCEDURE MEDICATIONS Versed 1 mg IV Fentanyl 50 mcg IV Versed 1 mg IV Fentanyl 25 mcg IV Versed 1 mg IV Oxygen: 2 L/min via nasal cannula Heparin diluted in 23cc Heparinized saline. Patient given 10cc IA of this solution. 10/22/2018 13:41:4 2 Verapamil 2.5mg, Ntg 100mcgs, 2000 units of Heparin diluted in 23cc Heparinized saline. Patient give n 10cc IA of this solution. 10/22/2018 13:41:42 SUMMARY OF HEMODYNAMIC DATA Time AIR REST ECG 13:11:30 AO 169/95 (121) SA 13:44:27 LV 170/16, 28 14:18:19 LV 169/17, 28 14:18:25 LV 176/1, 38 14:19:21 LV 179/1, 35 14:19:27 LVp 179/5, 49 14:19:36 AOp 173/91 (123) 14:19:41 Signed By Mendel Mckeon MD On 10/22/2018 14:37:46 Mendel Mckeon MD
[2018-10-22] MEDS: 0.9% Normal Saline 1,000 ML 60 ML IV (14:45)
[2018-10-22] MEDS: amLODIPine 5 MG Tablet PO (15:07)
[2018-10-22] MEDS: Carvedilol 6.25 MG Tablet PO (21:28)
[2018-10-22] MEDS: Pravastatin 20 MG Tablet PO (21:28)
[2018-10-23 02:59] VITALS: PULSE 93
[2018-10-23 03:20] VITALS: BP 158/98; PULSE 89; RESP 16; TEMP 36.6; O2SAT 99
[2018-10-23] MEDS: Heparin Injection (Vial) 5,000 UNIT/ML VIAL 5000 UNIT SC (05:40)
[2018-10-23 07:00] VITALS: PULSE 104
--- NOTE | 2018-10-23 07:00 | PN.CARD_ITS ---
Subjectve: Patient seen and evaluated. Appears to be sleeping well. Objective: Vital Signs Temp Pulse Resp BP Pulse Ox 97.9 F 89 16 158/98 H 99 10/23/18 03:20 10/23/18 03:20 10/23/18 03:20 10/23/18 03:20 10/23/18 03:20 Oxygen Delivery Method Room Air Weight: 153 lb 10.595 oz Body Mass Index (BMI) 25.0 Intake and Output for Last 24 Hours 10/21/18 10/22/18 10/23/18 23:59 23:59 23:59 Intake Total 1737 / 2287 3614.33 / 4094.33 480 / 480 Output Total 2500 / 2500 1200 / 1200 Balance 1737 / 2287 1114.33 / 1594.33 -720 / -720 General: Awake, Alert, Oriented x 3 HEENT: PERRL, EOMI, Sclera Non Icteric Neck: Supple, Good ROM, No Lymph Node Enlargement Lungs: Clear to auscultation Cardiovascular: Regular Rhythm, Normal S1, Normal S2, No Murmurs, No Rubs, No Gallops Vascular: No Carotid Bruits, Normal Femoral Pulses, Normal Radial Pulses, Normal Dorsalis Pedal Pulse, Normal Posterior Tibial Pulses Abdomen: Bowel Sounds Present, Soft, Non Tender, No HSM, No Organomegaly Extremities: No Cyanosis, No Clubbing, No edema Musculoskeletal: No Erythema Skin: No Rashes Lymphatic: No Lymph Node Enlargement Neurological: No Focal Motor or Sensory Deficit Psych/Mental Status: Appropriate Rhythm: EKG: ECHO: Stress Test: Cardiac Cath: PCI: CT Surgery: Holter monitor: EPS: PPM: CXR: Chest CT Scan: Medical Necessity - Tobacco Use Smoking Status: Former smoker Tobacco Use: Non-smoker Assessment/Plan 1. Abnormal left ventricular ejection fraction * Patient presents with symptoms that are nondescript markedly hypertensive and has an abnormal ejection fraction estimated to be 20%. The etiology of the above is unclear but ischemic cardiomyopathy appears to be more likely. * 2. Hypertension * Blood pressure appears to be uncontrolled at this time and I suspect that this may be the etiology for his reduced ejection fraction. He does not appear to be segmental and therefore coronary disease may be unlikely or unrelated. * Appropriate adjustments to his blood pressure medication will be made afterwards. * Carvedilol has been started and will be titrated upwards Coronary artery bypass surgery * He does have a history of coronary artery bypass surgery but he has not had any cardiac evaluation in years and has also not been on any medications. * Have been able to convince him that he should start on secondary prevention and once again this will be forced after all this has transpired. * Will start low-dose statin with pravastatin. Patient has not tolerated other statins in the past. * Thank you for allowing me to participate in his care. * Addendum: Cardiac catheterization undertaken via the left radial artery. Left internal mammary artery noted to be patent and filling the left anterior descending artery as well as fixed filling distal right collaterals Totally occluded proximal right coronary artery Left main coronary artery with 40% proximal and 50% distal stenosis Left anterior descending artery totally occluded Left circumflex artery with moderate diffuse disease Aortogram demonstrating no other bypass grafts noted Left ventriculogram demonstrating globally reduced left ventricular systolic function estimated at 25% Severe hypertension Based on the above angiographic findings it appears that the left ventricular systolic dysfunction is due to a combination of severe hypertension as well as coronary artery disease. Stable for discharge for outpatient management.
[2018-10-23 07:12] VITALS: O2SAT 96
[2018-10-23 08:59] VITALS: BP 167/107; PULSE 97; RESP 16; TEMP 36.7; O2SAT 99
[2018-10-23] MEDS: Carvedilol 12.5 MG Tablet PO (09:05)
[2018-10-23] MEDS: Aspirin 81 MG TAB.CHEW PO (09:05)
[2018-10-23] MEDS: amLODIPine 5 MG Tablet PO (09:05)
[2018-10-23] MEDS: Lisinopril 10 MG Tablet PO (09:05)
--- NOTE | 2018-10-23 11:44 | DCINST_ITS ---
- Discharge Diagnoses Current Active Problems: Current Active and Chronic Problems (Last Updated 10/22/18 @ 17:19 by Samanta Ying) Left ventricular diastolic dysfunction (Chronic) Ischemic cardiomyopathy (Chronic) Secondary pulmonary arterial hypertension (Chronic) Mitral valve insufficiency (Chronic) Atherosclerosis of coronary artery of [place] heart without angina pectoris (Chronic) H/O coronary artery bypass surgery (Chronic) CABG x 1 LIU-LAD Essential (primary) hypertension (Chronic) Facial paresthesia (Acute) TOMMY (acute kidney injury) (Acute) HLD (hyperlipidemia) (Chronic) You will use the following diet at home:: Cardiac Your food should be the consistency of: Regular Your liquids should be the consistency of: Regular/Thin Discharge Activity: Return to Normal Activity Allergies/Adverse Reactions: Allergies codeine Adverse Reaction (Verified 10/21/18 11:02) Upset Stomach Medications to take at Discharge Amlodipine [Norvasc] 5 mg PO DAILY #30 tab 10/23/18 Aspirin [Aspirin, Baby] 81 mg PO DAILY@0800 tab.chew 10/23/18 Carvedilol [Coreg (Beta Srinivas)] 12.5 mg PO BID #60 tab 10/23/18 Lisinopril [Zestril] 10 mg PO DAILY #30 tab 10/23/18 Pravastatin [Pravachol] 20 mg PO QHS #30 tab 10/23/18 The following prescriptions were given: Carvedilol [Coreg (Beta Srinivas)] 12.5 mg PO BID #60 tab Transmission Status: Pending to [address] Amlodipine [Norvasc] 5 mg PO DAILY #30 tab Transmission Status: Pending to [address] Pravastatin [Pravachol] 20 mg PO QHS #30 tab Transmission Status: Pending to [facility] Lisinopril [Zestril] 10 mg PO DAILY #30 tab Transmission Status: Pending to [facility] [facility] Primary Care Physician: Care Physician,No Primary [Primary Care Provider] - Please follow up with your Primary Care Physician in: 1-2 weeks Test Results: Test results from this visit will be discussed in further detail at your follow- up appointment, if applicable. Please Follow Up With: Mendel Mckeon MD When: as directed
--- NOTE | 2018-10-23 12:33 | PHA.DC.MC ---
Pharmacy Service has performed discharge medication reconciliation and counseling for this patient. The patient's discharge medication list was reviewed for discrepancies and discrepancies were resolved. The patient was counseled on the following discharge medications and changes in medications for homegoing were reviewed. 1. ASPIRIN 81MG 1T PO DAILYCM 2. AMLODIPINE 5MG 1T PO DAILY 3. CARVEDILOL 12.5MG 1T PO BID 4. LISINOPRIL 10MG 1T PO DAILY 5. PRAVASTATIN 20MG 1T PO QHS The Reason for Use, instructions for use, and potential side effects were reviewed for all new medications. The patient's questions regarding all of their medications were answered. The patient was able to verbally demonstrate an understanding of their discharge medications. Home Medications Amlodipine [Norvasc] 5 mg PO DAILY #30 tab 10/23/18 Aspirin [Aspirin, Baby] 81 mg PO DAILY@0800 tab.chew 10/23/18 Carvedilol [Coreg (Beta Srinivas)] 12.5 mg PO BID #60 tab 10/23/18 Lisinopril [Zestril] 10 mg PO DAILY #30 tab 10/23/18 Pravastatin [Pravachol] 20 mg PO QHS #30 tab 10/23/18
--- NOTE | 2018-10-23 13:56 | PCM.DC.SUM ---
Discharge Date and Diagnosis - Problem List Patient Problems: Active and Suspected Problems (Last Updated 10/22/18 @ 17:19 by Samanta Ying) Facial paresthesia (Acute) TOMMY (acute kidney injury) (Acute) Date of Admission: 10/21/18 Date of Discharge: 10/23/18 - Primary Discharge Diagnosis Active and Suspected Problems (Last Updated 10/22/18 @ 17:19 by Samanta Ying) Diaphoresis 2/2 CAD suspected ischemic cardiomyopathy HTN Facial parasthesias - stroke ruled out Prior CABG Medication noncompliance TOMMY Hx CVA Chronic lower back pain - Secondary Discharge Diagnosis Chronic Problems (Last Updated 10/22/18 @ 17:19 by Samanta Ying) Left ventricular diastolic dysfunction (Chronic) Ischemic cardiomyopathy (Chronic) Secondary pulmonary arterial hypertension (Chronic) Mitral valve insufficiency (Chronic) Atherosclerosis of coronary artery of [place] heart without angina pectoris (Chronic) H/O coronary artery bypass surgery (Chronic) CABG x 1 LIU-LAD Essential (primary) hypertension (Chronic) HLD (hyperlipidemia) (Chronic) Hospital Course and Treatment Imaging Results: CT/Brain/Head without Contrast IMPRESSION: Old subcentimeter lacunar infarcts in the left basal ganglia and left internal capsule. No acute intracranial abnormality. Chronic ischemic and atrophic changes. RAD/Chest PA and Lateral IMPRESSION: No acute thoracic pathology. Echo: Interpretation Summary Normal LV size. The estimated ejection fraction is 20 %. Stage 2 diastolic dysfunction. Moderate pulmonary hypertension. Pulmonary artery systolic pressure is 70 mmHg. The global longitudinal strain is severely abnormal. The global longitudinal strain = -7.1% (abnormal). MRI/Brain without Contrast IMPRESSION: 1. No MRI evidence of acute or subacute ischemic infarct or acute intracranial abnormality. 2. Old lacunar cystic infarcts in the right and left central pontine tegmentum and surrounded by chronic ischemic changes across the central pontine tegmentum. 3. Old lacunar cystic infarct in the right parietal lobe subcortical white matter and old lacunar linear cystic infarct in the left anterior periventricular white matter. 4. Few chronic white matter ischemic changes in both cerebral hemispheres. Left Heart Cath: CONCLUSIONS Severe [place] coronary artery disease involving a totally occluded left anterior descending artery and right coronary artery, patent left internal mammary artery to left anterior descending artery with [id number] collaterals, mild to moderate disease left circumflex artery. Severe left ventricular systolic dysfunction with EF of 20 to 25%. RECOMMENDATIONS Medical therapy CORONARY ANGIOGRAPHY DOMINANCE: Right Dominant LEFT HEART ASSESSMENT Left Ventricular Ejection Fraction: by LV Gram 20 % No other saphenous vein graft findings noted with aortogram. LEFT MAIN: Proximal 40% stenosis and distal 50% stenosis LEFT ANTERIOR DESCENDING ARTERY: OSTIAL LAD: is occluded CIRCUMFLEX ARTERY: Moderate luminal irregularities up to 50% RIGHT CORONARY ARTERY: PROX RCA: is occluded GRAFTS: LIU graft to the Mid LAD is patent COLLATERAL FLOW: Collateral flow from Left to Right AORTIC ROOT: Consults: Linda - Cardiology Operations: None Procedures: 2-D Echocardiogram, Cardiac catheterization Summary of Care Provided: Hospital course: The patient is a 63 year old M with pmhx of prio CAD with multiple stents and CABG in the past, also with hx of CVA, who takes no medications at home, who presented to the ER with c/o a diaphoretic episode that suddenly occurred while standing in his kitchen. He was not exerting himself at the time, and did not feel hot. He also complained that he had worsening of chronic He did not have chest pain or SOB. He had ST and T wave abnormalities on EKG. CT brain was negative. He was admitted with concerns for worsening of his CAD or CVA. Trop was negative x 3. MRI brain was negative. He had an echo the following day with EF of 20%, stage 2 diastolic dysfunction, PASP 70mmHg. Cardiology was consulted. He was taken for a heart catheterization. This demonstrated Severe [place] coronary artery disease involving a totally occluded left anterior descending artery and right coronary artery, patent left internal mammary artery to left anterior descending artery with [id number] collaterals, mild to moderate disease left circumflex artery. Severe left ventricular systolic dysfunction with EF of 20 to 25%.. He was placed on aspirin, statin, coreg, norvasc, and lisinopril. He was discharged in stable condition. He will need close follow up with cardiology as directed and with his PCP in 1-2 weeks. This patient was seen by Torsten Matias PA-C under the supervision of Doctor Collins. [] Patient Problems: Active and Suspected Problems (Last Updated 10/22/18 @ 17:19 by Samanta Ying) Facial paresthesia (Acute) TOMMY (acute kidney injury) (Acute) - Physical Exam General: Alert, Oriented x3, Cooperative HEENT: Atraumatic, PERRLA, EOMI, Normocephalic Neck: Supple, No JVD, Negative Carotid Bruits Lungs: Clear to auscultation, Normal air movement Cardiovascular: Regular rate, No murmurs Abdomen: Bowel Sounds Present, Soft, Non Tender Extremities: No edema, Capillary Refill Less than 3 Seconds Skin: No rashes, No breakdown Musculoskeletal: No Tenderness to Palpation of Joints or Extremities Neurological: Cranial nerves II-XII grossly intact Psych/Mental Status: Normal Affect, Appropriate, Alert and oriented to time, place, person, mood and affect Vital Signs Temp Pulse Resp BP Pulse Ox 98.1 F 97 16 167/107 H 99 10/23/18 08:59 10/23/18 08:59 10/23/18 08:59 10/23/18 08:59 10/23/18 08:59 Oxygen Delivery Method Room Air Weight: 153 lb 10.595 oz Body Mass Index (BMI) 25.0 Intake and Output for Last 24 Hours 10/21/18 10/22/18 10/23/18 23:59 23:59 23:59 Intake Total 1737 / 2287 3614.33 / 4094.33 480 / 480 Output Total 2500 / 2500 1450 / 1450 Balance 1737 / 2287 1114.33 / 1594.33 -970 / -970 Discharge Diet: Low fat/ Low Cholesterol, 2000 mg Sodium Diet Discharge Activity: Return to Normal Activity Home Medications: Medications to take at Discharge Amlodipine [Norvasc] 5 mg PO DAILY #30 tab 10/23/18 Aspirin [Aspirin, Baby] 81 mg PO DAILY@0800 tab.chew 10/23/18 Carvedilol [Coreg (Beta Srinivas)] 12.5 mg PO BID #60 tab 10/23/18 Lisinopril [Zestril] 10 mg PO DAILY #30 tab 10/23/18 Pravastatin [Pravachol] 20 mg PO QHS #30 tab 10/23/18 Following Prescrptions Were Given to Patient: Carvedilol [Coreg (Beta Srinivas)] 12.5 mg PO BID #60 tab [facility] Status[facility] Amlodipine [Norvasc] 5 mg PO DAILY #30 tab Transmission Status: Received by L[facility]ISA [facility] Pravastatin [Pravachol] 20 mg PO QHS #30 tab Transmission Status: Received by OLUISA [facility]STA[facility]EDA[facility] Lisinopril [Zestril] 10 mg PO DAILY #30 tab Transmission Status: Received by LOUISA CASTA[facility]EDA[facility] Primary Care Physician: Care Physician,No Primary [Primary Care Provider] - Please follow up with your Primary Care Physician in: 1-2 weeks Please Follow Up With: Mendel Mckeon MD When: as directed Disposition: Home Minutes spent on discharge:: 35 Patient Condition:: Stable Medical Necessity - Tobacco Use Smoking Status: Former smoker Tobacco Use: Non-smoker Meaningful Use Info Meaningful Use Diagnoses (Choose all that apply): None applicable
== END 2018-10-23 15:20 | disposition home or self-care (01) | DRG 287 ==
LOC: ED 11:43 → PCU 14:36
PROVIDERS: Physician Assistant; Admitting Provider Internal Medicine; Emergency Provider Emergency Medicine; Referring Provider Internal Medicine; Visit Provider Internal Medicine
DX: I16.0 Hypertensive urgency (principal); N17.9 Acute kidney failure, unspecified; K50.90 Crohn's disease, unspecified, without complications; R43.9 Unspecified disturbances of smell and taste; R20.2 Paresthesia of skin; R61 Generalized hyperhidrosis; M54.5 Low back pain; G89.29 Other chronic pain; Z86.73 Personal history of transient ischemic attack (TIA), and cerebral infarction without residual deficits; Z87.891 Personal history of nicotine dependence; I25.2 Old myocardial infarction; Z95.5 Presence of coronary angioplasty implant and graft; Z95.1 Presence of aortocoronary bypass graft; I10 Essential (primary) hypertension; I25.5 Ischemic cardiomyopathy; I25.119 Atherosclerotic heart disease of native coronary artery with unspecified angina pectoris; I25.82 Chronic total occlusion of coronary artery; I34.0 Nonrheumatic mitral (valve) insufficiency; I27.21 Secondary pulmonary arterial hypertension; E78.5 Hyperlipidemia, unspecified; Z91.14 Patient's other noncompliance with medication regimen; I27.20 Pulmonary hypertension, unspecified
CPT/HCPCS: 36415; 70450; 70551; 71046; 80053; 80061; 81001; 82607; 83036; 83690; 84443; 84484; 85025; 92523; 93005; 93306; 93459; 93567; 94762; 97802; 99152; 99153; 99285; J7030; J7040; Q9967; A4216; C1769; C1894

== ENCOUNTER → 2018-11-07 10:23 | Outpatient (CLI) | payer MEDICARE, SELFPAY ==
[2018-11-06 15:56] VITALS: BMI 24.7
[2018-11-07 10:26] LABS: Bacteria 0 SEEN /hpf (None Seen); Mucous, Urine 0 SEEN /hpf (<or=2+); Squamous Epithelial Cells - UA 0 SEEN /hpf (0-5); White Blood Cells 0 SEEN /hpf (0-5)
[2018-11-07 12:32] LABS: Color, Urine Yellow (Yellow); Glucose, Dipstick Normal (Normal); Ketone-Dipstick Negative (Negative); Leukocyte Esterase-Dipstick Negative /ul (Negative); Nitrite-Dipstick Negative (Negative); Occult Blood-Urine 150 /ul (Negative); Protein-Dipstick Negative (Negative); Urine Bilirubin Dipstick Negative (Negative); Urine Clarity Clear (Clear); Urine Urobilinogen Normal (Normal); Urine pH 6.5 (5.0 - 8.0)
[2018-11-07 12:35] LABS: PSA,Total - Annual Screen 4.57 ng/mL (0.00-4.00)
[2018-11-07 12:47] LABS: Red Blood Cells-Urine 5-10 SEEN /hpf (0-5)
== END ==
PROVIDERS: PCP Internal Medicine; Visit Provider Internal Medicine
DX: Z00.00 Encounter for general adult medical examination without abnormal findings (principal); Z12.5 Encounter for screening for malignant neoplasm of prostate; R10.9 Unspecified abdominal pain
CPT/HCPCS: 36415; 81001; 84153; G0103

== ENCOUNTER → 2018-11-21 13:53 | Outpatient (CLI) | payer MEDICARE, SELFPAY ==
[2018-11-06 15:56] VITALS: BMI 24.7
--- NOTE | 2018-11-21 14:12 | CT_ITS ---
STUDY: CT ABDOMEN AND PELVIS WITH AND WITHOUT CONTRAST REASON FOR EXAM: Male, 63 years old. Microscopic hematuria RADIATION DOSAGE (If Supplied By Facility): CTDIvol = ( 14.97 ) mGy, DLP = ( 1427.63 ) mGycm TECHNIQUE: Transaxial images were obtained from the dome of the diaphragm to the symphysis pubis without oral contrast. IV Isovue 300 100ml was administered. Sagittal and coronal images were reconstructed. Individualized dose optimization techniques were used for this CT. COMPARISON: None. FINDINGS: Right lung base calcified granuloma. The visualized portions of the heart are within normal limits. Granulomatous calcifications in the liver. Normal gallbladder and extrahepatic biliary system. Granulomatous calcifications in the spleen. Normal pancreas. Normal bilateral adrenal glands. Normal right kidney. Smaller left kidney with cortical thinning and upper pole 4 mm cyst. There is delayed contrast excretion from the left kidney. There is significant intraluminal thrombus in the left renal artery requiring further evaluation. Normal visualized stomach. Normal small intestine. Diverticulosis of the colon. The appendix is visualized and appears normal. Atherosclerotic calcifications and intraluminal thrombus in the abdominal aorta. Normal inferior vena cava. Normal retroperitoneum. Normal urinary bladder. Small fatty umbilical hernia. Degenerative vertebral changes. CT/CT Abd/Pelvis W/WO Contrast IMPRESSION: Smaller left kidney with cortical thinning and delayed excretion of contrast. There is significant left renal arterial thrombosis requiring further evaluation. Granulomatous calcifications in the liver and spleen. Small fatty umbilical hernia. Colonic diverticulosis. Electronically Signed: Phil Chung DO at 20:14 EDT Tel [phone], Service support ,
== END ==
PROVIDERS: Family Provider Internal Medicine; PCP Internal Medicine; Referring Provider Nurse Practitioner Adult Health; Visit Provider Nurse Practitioner Adult Health
DX: R31.29 Other microscopic hematuria (principal)
CPT/HCPCS: 74178; Q9967

== ENCOUNTER → 2019-02-26 09:21 | Outpatient (CLI) | payer MEDICARE, SELFPAY ==
[2019-01-02 14:35] VITALS: BMI 24.7
[2019-02-26 11:11] LABS: PSA,Total- Diagnostic 5.02 ng/mL (0.0-4.0)
[2019-02-27 12:40] LABS: PSA, Free 0.77 ng/mL; PSA, Free % 23.3 % (.); PSA, Total Ultrasensitive 3.3 ng/mL (0.0-4.0)
== END ==
PROVIDERS: Family Provider Internal Medicine; PCP Internal Medicine; Referring Provider Urology; Visit Provider Urology
DX: R97.20 Elevated prostate specific antigen [PSA] (principal)
CPT/HCPCS: 36415; 84153; 84154

== ENCOUNTER → 2019-03-18 17:12 | Outpatient (CLI) | payer MEDICARE, SELFPAY ==
[2019-03-07 11:47] VITALS: BMI 24.3
--- NOTE | 2019-03-18 | PROSBIL_PTH ---
PATIENT: ДМИТРИЙ BOJORQUEZ LOC: [facility] U#:[id number] AGE/SX: 69/M ROOM: RE03/18/[address]: Dr. Álvaro Vergara MD : 1955 BED: DIS: SPEC #: [id number] RECD: 03/18/19 08:56 STATUS: JOHN KASIA #: [id number] SUDHIR: 03/18/19 00:[address]: Álvaro Vergara DEPT: SURGICAL PATHOLOGY RECD BY: Rob Parmar ENTERED: 03/19/19 08:57 SP TYPE: PROST BX MANI DR: Dr. Jn Worthington MD Tissues: A - PROSTATE RIGHT B - PROSTATE RIGHT C - PROSTATE RIGHT D - PROSTATE LEFT E - PROSTATE LEFT F - PROSTATE LEFT Procedures: PROSTATE BX HEADER OPERATION: Prostatic biopsy PRE-OP DIAGNOSIS: R97.20 TISSUE SUBMITTED: A - Right apex, B - Right mid, C - Right base, D - Left apex, E - Left mid, F - Left base MICROSCOPIC DIAGNOSIS A. Right prostate, apex, core biopsy: Prostatic tissue, negative for malignancy. Focal mild acute and chronic inflammation. B. Right prostate, mid, core biopsy: Focal high-grade prostatic intraepithelial neoplasia (HGPIN). C. Right prostate, base, core biopsy: Prostatic tissue, negative for malignancy. Focal mild chronic inflammation. D. Left prostate, apex, core biopsy: Predominantly prostatic stromal tissue, negative for malignancy. E. Left prostate, mid, core biopsy: Focal high-grade prostatic intraepithelial neoplasia (HGPIN). F. Left prostate, base, core biopsy: Focal high-grade prostatic intraepithelial neoplasia (HGPIN). Focal mild acute and chronic inflammation. SJ:louisa 03/20/19 COMMENT Case has been reviewed in consultation with Dr. Fleming who concurs with the above diagnosis. IDC:AM MICROSCOPIC DESCRIPTION Slides are reviewed. GROSS DESCRIPTION A - Received is one container designated prostate, right apex. The specimen consists of two elongated fragments of light crenshaw-white soft tissue measuring 0.5 and 1.2 cm in length and 0.1 cm in diameter. The specimen is totally submitted in one cassette. B - Received is one container designated prostate, right mid. The specimen consists of two elongated fragments of light crenshaw-white soft tissue each measuring 0.5 cm in length and 0.1 cm in diameter. The specimen is totally submitted in one cassette. C - Received is one container designated prostate, right base. The specimen consists of two elongated fragments of light crenshaw-white soft tissue measuring 0.5 and 1 cm in length and 0.1 cm in diameter. The specimen is totally submitted in one cassette. D - Received is one container designated prostate, left apex. The specimen consists of one elongated fragment of light crenshaw-white soft tissue measuring 1.5 cm in length and 0.1 cm in diameter. The specimen is totally submitted in one cassette. E - Received is one container designated prostate, left mid. The specimen consists of two elongated fragments of light crenshaw-white soft tissue measuring 0.5 and 1.2 cm in length and 0.1 cm in diameter. The specimen is totally submitted in one cassette. F - Received is one container designated prostate, left base. The specimen consists of two elongated fragments of light crenshaw-white soft tissue measuring 0.7 and 1 cm in length and 0.1 cm in diameter. The specimen is totally submitted in one cassette. / SJ:rg 03/19/19 TC:5 CPT: G0146
== END ==
PROVIDERS: PCP Internal Medicine; Referring Provider Urology; Visit Provider Urology
DX: R97.20 Elevated prostate specific antigen [PSA] (principal)
CPT/HCPCS: 88305; G0416

== ENCOUNTER → 2019-04-03 10:48 | Outpatient (CLI) | payer MEDICARE, SELFPAY ==
[2019-04-03 10:29] VITALS: BMI 25.4
[2019-04-03 12:30] LABS: Absolute Lymphocyte Count 1.29 X10^3/uL (0.83-4.51); Absolute Neutrophil Count 4.9 X10^3/uL (2.0-7.7); Basophil# 0.03 X10^3/uL; Basophil% 0.4 % (0-1); Eosinophil# 0.25 X10^3/uL; Eosinophils% 3.3 % (0-5); Hematocrit 42.5 % (40-54); Hemoglobin 13.8 g/dL (13.0-16.5); Lymphocyte # 1.29 X10^3/ul (4.0); Lymphocyte % 17.1 % (19-41); Mean Corp Hgb Conc 32.5 g/dL (32-36); Mean Corpuscular Hgb 29.2 pg (27.0-32.0); Mean Corpuscular Volume 89.9 fL (80-94); Mean Platelet Vol. 10.1 fl (6.2-12.0); Monocyte# 1.06 X10^3/uL; Monocyte% 14.1 % (0-10); NRBC Flagged by Analyzer 0 % (0-5); Neutrophil # 4.87 X10^3/uL (2.7-7.7); Neutrophil % 64.7 % (47-70); Platelet Count 321 K/mm3 (150-450); RBC Distribution Width SD 42.9 fl (35.1-43.9); Red Blood Count 4.73 M/mm3 (4.6-6.2); White Blood Count 7.5 K/mm3 (4.4-11.0)
[2019-04-03 13:05] LABS: Anion Gap 7 (5-15); BUN 14 mg/dL (7-18); Calcium,Total 9.1 mg/dL (8.5-10.1); Chloride 106 mmol/L (98-107); Creatinine, Serum 1.56 mg/dL (0.70-1.30); EST Glomerular Filtration Rate 48 mL/min (>60); Est Glom Filt Rate - Afr Amer 58 mL/min (>60); Glucose 90 mg/dL (74-106); Potassium 4.1 mmol/L (3.5-5.1); Sodium Level 137 mmol/L (136-145)
== END ==
PROVIDERS: PCP Internal Medicine; Referring Provider Internal Medicine; Visit Provider Internal Medicine
DX: F32.9 Major depressive disorder, single episode, unspecified (principal); I10 Essential (primary) hypertension
CPT/HCPCS: 36415; 80048; 85025

== ENCOUNTER → 2019-04-18 07:48 | Outpatient (CLI) | payer MEDICARE, SELFPAY ==
[2019-04-03 18:49] VITALS: BMI 24.3
--- NOTE | 2019-04-18 07:49 | ECHOD_ITS ---
Reason For Study: CHF Procedure This was a 2D Doppler, Color Flow transthoracic echocardiogram. Exam performed in department. Left Ventricle Normal LV size. The estimated ejection fraction is 45 %. Mild global left ventricular systolic dysfunction. Stage 1 diastolic dysfunction. There is mild global hypokinesis of the left ventricle. Right Ventricle Normal RV size. Normal systolic function. Atria Normal left atrium. Normal right atrium. Mitral Valve Normal mitral valve. Tricuspid Valve Normal tricuspid valve. Mild (1+) tricuspid valve insufficiency. Pulmonary artery systolic pressure is 28 mmHg. Aortic Valve Trisinus/trileaflet aortic valve. Mild focal aortic valve calcification. Pulmonic Valve Normal pulmonic valve. Great Vessels Normal aortic root. The pulmonary artery is normal size. Normal inferior vena cava. Pericardium/Pleural No pericardial effusion. MMode/2D Measurements & Calculations LVIDd: 4.4 cm IVSd: 1.1 cm Ao root diam: 3.2 cm LVIDs: 3.5 cm LVPWd: 1.1 cm RVDd: 3.0 cm FS: 20.1 % LAV(MOD-bp): 33.1 ml LVAd ap4: 29.5 cm2 SV(MOD-sp4): 36.5 ml LAV(MOD-bp) Indexed: 18.4 ml/m2 EDV(MOD-sp4): 87.9 ml LAV(MOD-sp2): 32.2 ml EDV(sp4-el): 90.5 ml LAV(MOD-sp4): 28.6 ml LVAs ap4: 21.4 cm2 ESV(MOD-sp4): 51.5 ml ESV(sp4-el): 52.2 ml EF(MOD-sp4): 41.5 % EF(sp4-el): 42.3 % SV(sp4-el): 38.3 ml LA A4 area: 12.9 cm2 LA dimension(2D): 3.7 cm RA A4 area: 11.9 cm2 Time Measurements MV dec time: 0.21 sec Doppler Measurements & Calculations MV E max anthony: 84.2 cm/sec Lat Peak E' Anthony: 8.3 cm/sec Med Peak E' Anthony: 7.2 cm/sec MV A max anthony: 103.2 cm/sec E/E' lat: 10.2 E/E' med: 11.7 MV E/A: 0.82 Ao V2 max: 166.0 cm/sec LV V1 max: 96.8 cm/sec PA V2 max: 118.8 cm/sec Ao max P.0 mmHg LV V1 max P.7 mmHg TR max anthony: 248.4 cm/sec TR max P.7 mmHg Interpretation Summary Normal LV size. The estimated ejection fraction is 45 %. Mild global left ventricular systolic dysfunction. Stage 1 diastolic dysfunction. The global longitudinal strain = -11.6% (abnormal). Compared to previous study, the left ventricular systolic function has improved.. The global longitudinal strain = -11.6% (abnormal). Compared to previous study, the left ventricular systolic function has improved.. Ordering Physician: Mendel Mckeon Referring Physician: YAMILE DANIELSON Performed By: Dora Mcdonald RDCS
== END ==
PROVIDERS: PCP Internal Medicine; Referring Provider Internal Medicine Cardiovascular Disease; Visit Provider Internal Medicine Cardiovascular Disease
DX: I25.10 Atherosclerotic heart disease of native coronary artery without angina pectoris (principal); I50.9 Heart failure, unspecified
CPT/HCPCS: 93306

== ENCOUNTER → 2019-07-19 11:24 | Outpatient (CLI) | payer MEDICARE, SELFPAY ==
[2019-07-03 10:41] VITALS: BMI 23.8
[2019-07-19 13:16] LABS: AST(SGOT) 19 U/L (15-37); Alanine Aminotransfer ALT/SGPT 26 U/L (16-61); Albumin, Serum 3.5 g/dL (3.2-5.0); Alkaline Phosphatase 103 U/L (45-117); Anion Gap 8 (5-15); BUN 17 mg/dL (7-18); BUN/Creat Ratio 10.4 RATIO (10-20); Bilirubin, Direct 0.09 mg/dL (0.00-0.30); Calcium,Total 9.4 mg/dL (8.5-10.1); Chloride 102 mmol/L (98-107); Creatinine, Serum 1.64 mg/dL (0.70-1.30); EST Glomerular Filtration Rate 46 mL/min (>60); Est Glom Filt Rate - Afr Amer 55 mL/min (>60); Glucose 116 mg/dL (74-106); Potassium 4.4 mmol/L (3.5-5.1); Protein, Total 7.5 g/dL (6.4-8.2); Sodium Level 134 mmol/L (136-145)
[2019-07-19 13:30] LABS: AST(SGOT) 18 U/L (15-37); Alanine Aminotransfer ALT/SGPT 25 U/L (16-61); Albumin, Serum 3.5 g/dL (3.2-5.0); Alkaline Phosphatase 99 U/L (45-117); Bilirubin, Direct 0.08 mg/dL (0.00-0.30); Cholesterol 234 mg/dL (200); High Density Lipoprotein 35 mg/dL; Protein, Total 7.5 g/dL (6.4-8.2); Triglycerides 256 mg/dL; Very Low Density Lipoprotein 51 mg/dL (5-40)
== END ==
PROVIDERS: PCP Internal Medicine; Referring Provider Nurse Practitioner Family; Visit Provider Nurse Practitioner Family
DX: I25.10 Atherosclerotic heart disease of native coronary artery without angina pectoris (principal); E78.5 Hyperlipidemia, unspecified
CPT/HCPCS: 80048; 80061; 80076

== ENCOUNTER → 2019-08-02 12:11 | Outpatient (CLI) | payer MEDICARE, SELFPAY ==
[2019-08-02 11:13] VITALS: BMI 23.8
[2019-08-02 18:43] LABS: Vitamin D,25 Hydroxy 29.9 ng/mL
== END ==
PROVIDERS: PCP Internal Medicine; Referring Provider Internal Medicine; Visit Provider Internal Medicine
DX: E55.9 Vitamin D deficiency, unspecified (principal)
CPT/HCPCS: 36415; 82306

== ENCOUNTER → 2019-09-30 08:45 | Outpatient (CLI) | payer MEDICARE, SELFPAY ==
[2019-08-02 11:13] VITALS: BMI 23.8
[2019-09-30 09:53] LABS: AST(SGOT) 20 U/L (15-37); Alanine Aminotransfer ALT/SGPT 25 U/L (16-61); Albumin, Serum 3.5 g/dL (3.2-5.0); Alkaline Phosphatase 99 U/L (45-117); Bilirubin, Direct 0.09 mg/dL (0.00-0.30); Cholesterol 205 mg/dL (200); Globulin 3.8 g/dL (2.2-4.2); High Density Lipoprotein 41 mg/dL; PSA,Total- Diagnostic 6.05 ng/mL (0.0-4.0); Protein, Total 7.3 g/dL (6.4-8.2); Triglycerides 197 mg/dL; Very Low Density Lipoprotein 39 mg/dL (5-40)
== END ==
PROVIDERS: Nurse Practitioner Family; PCP Internal Medicine; Referring Provider Urology; Visit Provider Urology
DX: R97.20 Elevated prostate specific antigen [PSA] (principal); I25.10 Atherosclerotic heart disease of native coronary artery without angina pectoris; I25.5 Ischemic cardiomyopathy; I10 Essential (primary) hypertension; Z95.1 Presence of aortocoronary bypass graft
CPT/HCPCS: 36415; 80061; 80076; 84153

== ENCOUNTER → 2020-03-30 10:54 | Outpatient (CLI) | payer MEDICARE, SELFPAY ==
[2020-03-17 13:28] VITALS: BMI 24.7
--- NOTE | 2020-03-30 10:56 | ECHOD_ITS ---
Reason For Study: s/p CABG Procedure This was a 2D Doppler, Color Flow transthoracic echocardiogram. Exam performed in department. Left Ventricle Normal LV size. Mild concentric left ventricular hypertrophy. Left ventricular systolic function is lower limits of normal. The estimated ejection fraction is 47 %. Stage 1 diastolic dysfunction. No regional wall motion abnormalities noted. Right Ventricle Normal RV size. Normal systolic function. Atria Normal left atrium. Normal right atrium. Tricuspid Valve Normal tricuspid valve. Mild tricuspid valve insufficiency. Aortic Valve Trisinus/trileaflet aortic valve. Mild focal aortic valve calcification. Pulmonic Valve Normal pulmonic valve. Great Vessels Normal aortic root. The pulmonary artery is normal size. Normal inferior vena cava. Pericardium/Pleural No pericardial effusion. MMode/2D Measurements & Calculations LVIDd: 4.7 cm IVSd: 1.2 cm Ao root diam: 3.4 cm LVIDs: 3.9 cm LVPWd: 1.3 cm LA dimension: 4.4 cm RVDd: 3.9 cm FS: 17.3 % LAV(MOD-bp): 60.3 ml LA A4 area: 18.6 cm2 RA A4 area: 15.1 cm2 LAV(MOD-bp) Indexed: 33.8 ml/m2 LAV(MOD-sp2): 62.9 ml LAV(MOD-sp4): 51.0 ml Time Measurements MV dec time: 0.23 sec Doppler Measurements & Calculations MV E max anthony: 91.7 cm/sec Lat Peak E' Anthony: 7.4 cm/sec Med Peak E' Anthony: 3.8 cm/sec MV A max anthony: 99.8 cm/sec E/E' lat: 12.5 E/E' med: 24.1 MV E/A: 0.92 MV V2 max: 117.1 cm/sec MV P1/2t max anthony: 111.3 cm/sec Ao V2 max: 142.4 cm/sec MV max P.5 mmHg MV P1/2t: 118.3 msec Ao max P.1 mmHg MV V2 mean: 63.5 cm/sec MV mean P.9 mmHg MV dec slope: 275.5 cm/sec2 MV V2 VTI: 39.9 cm MVA(P1/2t): 1.9 cm2 LV V1 max: 74.0 cm/sec PA V2 max: 93.4 cm/sec LV V1 max P.2 mmHg Interpretation Summary Normal LV size. Mild concentric left ventricular hypertrophy. Left ventricular systolic function is lower limits of normal. The estimated ejection fraction is 47 %. Stage 1 diastolic dysfunction. Compared to prior study, there is no significant change. Ordering Physician: Mendel Mckeon Referring Physician: Jn Worthington Performed By: William Isaacs RCS
== END ==
PROVIDERS: PCP Internal Medicine; Referring Provider Internal Medicine Cardiovascular Disease; Visit Provider Internal Medicine Cardiovascular Disease
DX: I25.10 Atherosclerotic heart disease of native coronary artery without angina pectoris (principal)
CPT/HCPCS: 93306

== ENCOUNTER 2020-06-08 09:29 | Emergency (ER) | payer MEDICARE, SELFPAY ==
[2020-03-17 13:28] VITALS: BMI 24.7
[2020-06-08] VITALS (8 sets, daily range): BP systolic 126–201; BP diastolic 85–112; PULSE 62–89; RESP 15–19; TEMP 36.6; O2SAT 97–99; BMI 25.4
--- NOTE | 2020-06-08 09:45 | EKG12_ITS ---
Test Reason : NEURO S/SX Blood Pressure : / mmHG Vent. Rate : 070 BPM Atrial Rate : 070 BPM P-R Int : 134 ms QRS Dur : 092 ms QT Int : 448 ms P-R-T Axes : 048 -09 147 degrees QTc Int : 483 ms Normal sinus rhythm Septal PA, age undetermined, cannot be excluded ST & T wave abnormality, consider lateral ischemia Prolonged QT Abnormal ECG Confirmed by VIANCA BURNS, JORGE ([id number]), film editor VIJAY NOE ([id number]) on 06/10/2020 8:56:50 AM Referred By: YOLANDA Confirmed By:JORGE COLEY MD
--- NOTE | 2020-06-08 09:46 | CT_ITS ---
We are attempting to reach an attending provider to discuss findings. An addendum with communication details will be sent when the communication is complete. STUDY: CTA HEAD AND NECK WITH CONTRAST REASON FOR EXAM: Male, 64 years old. Neuro deficit, acute, stroke suspected. History of right carotid stents. RADIATION DOSAGE (If Supplied By Facility): CTDIvol = ( 27.59 ) mGy, DLP = ( 1404.84 ) mGycm TECHNIQUE: CT angiography was performed with a multi-detector CT scanner. Data acquisition was obtained from the skull base through the vertex following intravenous administration of IV 100mL [id number]-[id number]. MIP images were reconstructed from the axial data set. Post-processing of the angiographic images was performed, with multiplanar reformation and 3D reconstruction. Individualized dose optimization techniques were used for this CT. COMPARISON: No relevant priors. FINDINGS: Normal bilateral petrous carotid arteries. There is calcified plaque formation of the right cavernous carotid artery, without a cross-sectional luminal stenosis. There is calcified plaque formation of the left cavernous carotid artery, without a cross-sectional luminal stenosis. Normal right A1 segments of the anterior cerebral artery. Normal left A1 segments of the anterior cerebral artery. Normal intact anterior communicating artery (ACOM). Normal bilateral A2 segments of the anterior cerebral arteries. Normal right M1 and M2 segments of the middle cerebral arteries, with a normal M1 bifurcation. Normal left M1 and M2 segments of the middle cerebral arteries, with a normal M1 bifurcation. Normal right posterior communicating artery (PCOM). Normal left posterior communicating artery (PCOM). Normal bilateral vertebral arteries. Normal basilar artery with a normal basilar bifurcation. The visualized bilateral superior cerebellar (SCA) arteries are normal. Normal bilateral P1, P2 and visualized P3 segments of the posterior cerebral arteries. There is no demonstrated aneurysm of the [place]. Mild degree of cerebral atrophy. Tiny hypodensities are seen in both basal ganglia more prominent on the right side suggestive of bilateral lacunar infarcts. AORTIC ARCH: There is atherosclerotic calcific plaque formation of the aortic arch and great vessels arising from the aortic arch, without a hemodynamically significant stenosis. There is a normal origin of the brachiocephalic, left common carotid, and left subclavian arteries. Prior CABG. RIGHT CAROTID ARTERIES: Normal right common carotid artery (CCA). Normal right common carotid bulb. Normal origin of the right internal carotid (ICA) artery without a hemodynamically significant stenosis. There is evidence of a surgical clips in the region of the right common carotid artery. This is in keeping with the right carotid endarterectomy with postoperative changes at the surgical site. Normal origin of the right external carotid artery (ECA). LEFT CAROTID ARTERIES: Normal left common carotid artery (CCA). Normal left common carotid bulb. There is mild atherosclerotic plaque formation of the origin of the left internal carotid artery with less than 50% cross sectional diameter stenosis. Normal visualized cervical portion of the left internal carotid artery. Normal origin of the left external carotid artery (ECA). VERTEBRAL ARTERIES: Normal bilateral vertebral arteries. CT/STROKE CTA Head AND Neck W/Con IMPRESSION: Findings in comparison with old lacunar infarcts in the basal ganglia bilaterally. Postsurgical changes at the right carotid bifurcation and compared with prior right internal carotid artery. Electronically Signed: Bob Clifton MD at 11:16 EDT , Service support ,
[2020-06-08 10:08] LABS: Absolute Lymphocyte Count 1.01 X10^3/uL (0.83-4.51); Absolute Neutrophil Count 5.9 X10^3/uL (2.0-7.7); Basophil# 0.03 X10^3/uL; Basophil% 0.4 % (0-1); Eosinophil# 0.02 X10^3/uL; Eosinophils% 0.3 % (0-5); Hemoglobin 15.2 g/dL (13.0-16.5); Lymphocyte # 1.01 X10^3/ul (0.83-4.51); Lymphocyte % 13.1 % (19-41); Mean Corp Hgb Conc 32.3 g/dL (32-36); Mean Corpuscular Hgb 27.6 pg (27.0-32.0); Mean Corpuscular Volume 85.5 fL (80-94); Mean Platelet Vol. 10.5 fl (6.2-12.0); Monocyte# 0.68 X10^3/uL; Monocyte% 8.8 % (0-10); NRBC Flagged by Analyzer 0 % (0-5); Neutrophil # 5.94 X10^3/uL (2.7-7.7); Neutrophil % 77.3 % (47-70); Platelet Count 277 K/mm3 (150-450); RBC Distribution Width CV 14.3 % (11.6-14.6); RBC Distribution Width SD 44.8 fl (35.1-43.9); White Blood Count 7.7 K/mm3 (4.4-11.0)
[2020-06-08 10:17] LABS: International Normalized Ratio 1.1; Prothrombin Time (Protime)PT. 13.1 SECONDS (11.7-14.9)
[2020-06-08 10:18] LABS: Partial Thromboplast Time 32.7 Seconds (24.1-36.2)
--- NOTE | 2020-06-08 10:28 | RAD_ITS ---
STUDY: X-RAY CHEST REASON FOR EXAM: Male, 64 years old. Neuro deficit, acute, stroke suspected TECHNIQUE: Single AP portable view of the chest. COMPARISON: Comparison is made with prior study 10/21/2018. FINDINGS: EKG electrodes are seen. Hyperinflation. Calcified granulomas. There is no demonstrated pleural abnormality. Sternal cerclage wires and vascular clips are present from a prior sternotomy and coronary artery bypass graft procedure (CABG). Normal mediastinum and guerda. Normal visualized pulmonary arteries. There is atherosclerotic tortuosity of the aortic arch and descending thoracic aorta. There are diffuse degenerative changes of the visualized thoracic spine. Normal visualized ribs, clavicles, and shoulders. There is no demonstrated abnormality of the visualized soft tissue structures of the upper abdomen. RAD/Chest 1 View IMPRESSION: Hyperinflation. The lungs are clear. Prior CABG. Electronically Signed: Bob Clifton MD at 11:07 EDT , Service support ,
[2020-06-08 10:30] LABS: Anion Gap 7 (5-15); BUN 17 mg/dL (7-18); BUN/Creat Ratio 11.9 RATIO (10-20); Calcium,Total 8.7 mg/dL (8.5-10.1); Chloride 104 mmol/L (98-107); Creatinine, Serum 1.43 mg/dL (0.70-1.30); EST Glomerular Filtration Rate 53 mL/min (>60); Est Glom Filt Rate - Afr Amer 64 mL/min (>60); Estimated Creatinine Clearance 48.33 ml/min; Glucose 100 mg/dL (74-106); Potassium 3.5 mmol/L (3.5-5.1); Sodium Level 137 mmol/L (136-145)
[2020-06-08] MEDS: Labetalol (Prefilled) 20 MG/4 ML IV (11:45)
[2020-06-08] MEDS: hydrALAZINE 20 MG/ML Vial IV (13:05)
--- NOTE | 2020-06-08 13:40 | ED.DCSUM_ITS ---
History of Present Illness Chief Complaint: Numb/Ting Informant: Patient, Family Narrative: 64-year-old male with a history of prior stroke tells me that over the past 3 days he has had an increase in the numbness sensation he chronically has on the right side of his face and tongue. No forehead involvement. He states that this numbness has been present since his last stroke and it seems more than normal. He states because of this he is pretty sure he has had a stroke. He also notes his blood pressures been higher over the past few days. He takes amlodipine 10 mg, carvedilol 12.5 mg twice daily, and a couple months ago was started on lisinopril 5 mg. He denies any arm or leg symptoms. No visual changes. No speech symptoms. He had prior carotid endarterectomy on the right. He also notes he has some pain in his back on the left mid thoracic - Past Medical History (1) Anxiety and depression Status: Chronic (2) Atherosclerosis of coronary artery of [place] heart without angina pectoris Status: Chronic (3) CVA (cerebral vascular accident) Status: Chronic Comment: H/O Right CEA 2010 (4) Essential (primary) hypertension Status: Chronic (5) HLD (hyperlipidemia) Status: Chronic (6) Ischemic cardiomyopathy Status: Chronic (7) Left ventricular diastolic dysfunction Status: Chronic (8) Secondary pulmonary arterial hypertension Status: Chronic Past Medical History - Allergies and Home Meds Allergies/Adverse Reactions: Allergies codeine Adverse Reaction (Verified 03/17/20 13:33) Upset Stomach Primary Care Physician: Mendel Mckeon MD [STAFF PHYSICIAN] - (Call to arrange follow-up with cardiology next week for blood pressure checks.) Surgical History: coronary bypass surgery, - - Right carotid endarterectomy Lives: Spouse/ Significant Other Smoking Status: Former smoker Drugs: None - Family History Paternal Family History: Family History (Last Reviewed 03/17/20 @ 13:34 by Fallon Tsai) Father Heart disease Alcoholism Brother Alcoholism Grandfather Heart disease Family History: Reports: Heart Disease Maternal Family History: Family History (Last Reviewed 03/17/20 @ 13:34 by Fallon Tsai) Father Heart disease Alcoholism Brother Alcoholism Grandfather Heart disease Family History: Reports: Unknown Review of Systems General: Denies: Chills, Fever, Sweats Eyes: Denies: Visual changes - bilaterally, Diplopia ENT: Denies: Rhinorrhea, Sore throat Cardiovascular: Denies: Chest pain, Palpitations Respiratory: Denies: Dyspnea, Cough, Dyspnea on exertion Gastrointestinal: Denies: Abdominal pain, Nausea, Vomiting, Diarrhea, Melena, Hematochezia Genitourinary: Denies: Dysuria, Hematuria, Frequency Musculoskeletal: Denies: Back pain, Extremity Pain Skin: Denies: Rash, Wounds Neurological: Reports: Parasthesia. Denies: Headache, Weakness, Numbness Physical Exam Vital Signs/Narrative: Vital Signs Pulse Resp BP Pulse Ox 06/08/20 13:26 76 19 H 160/88 H 97 06/08/20 13:00 62 17 188/97 H 97 06/08/20 11:32 75 15 197/111 H 99 06/08/20 11:30 70 16 197/111 H 98 06/08/20 11:00 71 19 H 190/105 H 98 06/08/20 10:05 71 18 180/110 H 97 Inital Vital Signs reviewed: Yes General: Well nourished, Well developed, No Acute Distress Head: Normocephalic, Atraumatic Eyes: Perrl, EOMI ENT: Moist mucous membranes, No rhinorrhea Neck: Supple, Nontender Cardiovascular: Regular rate, Regular rhythm, No murmurs Respiratory: No distress, CTA bilaterally, Chest nontender Abdomen: Soft, Nontender, Nondistended, Normal bowel sounds Back: Nontender, Normal Inspection Extremities: Nontender, No edema Skin: Normal color, No rash Neurological: Alert, Oriented x3, Cranial nerves II-XII grossly intact, Normal Strength, Normal Sensation, - - NIH is 0. He chronically has numbness/tinglin g/paresthesias on the right face. Psychological: Normal affect, Normal Mood Diagnostic/Tx/Re-eval Clinical Impression(s) from Imaging Studies Head/Neck CTA 06/08/20 09:46 IMPRESSION: Findings in comparison with old lacunar infarcts in the basal ganglia bilaterally. Postsurgical changes at the right carotid bifurcation and compared with prior right internal carotid artery. Electronically Signed: Bob Clifton MD at 11:16 EDT , Service support , ADDENDUM: 06/08/20 1124 IMPRESSION: Findings in comparison with old lacunar infarcts in the basal ganglia bilaterally. Postsurgical changes at the right carotid bifurcation and compared with prior right internal carotid artery. N.B. : The above information has been verbally conveyed by Bob Clifton MD to Dr Komal MD, on 06/08/2020 11:17:25 (ET). Electronically Signed: Bob Clifton MD at 11:16 EDT , Service support , Chest X-Ray 06/08/20 10:28 IMPRESSION: Hyperinflation. The lungs are clear. Prior CABG. Electronically Signed: Bob Clifton MD at 11:07 EDT , Service support , Laboratory Last Values WBC 7.7 K/mm3 (4.4-11.0) 06/08/20 10:00 RBC 5.50 M/mm3 (4.6-6.2) 06/08/20 10:00 Hgb 15.2 g/dL (13.0-16.5) 06/08/20 10:00 Hct 47.0 % (40-54) 06/08/20 10:00 MCV 85.5 fL (80-94) 06/08/20 10:00 MCH 27.6 pg (27.0-32.0) 06/08/20 10:00 MCHC 32.3 g/dL (32-36) 06/08/20 10:00 RDW Std Deviation 44.8 fl (35.1-43.9) H 06/08/20 10:00 RDW Coeff of [place] 14.3 % (11.6-14.6) 06/08/20 10:00 Plt Count 277 K/mm3 (150-450) 06/08/20 10:00 MPV 10.5 fl (6.2-12.0) 06/08/20 10:00 Immature Gran % (Auto) 0.100 % (0.0-0.9) 06/08/20 10:00 Neut % (Auto) 77.3 % (47-70) H 06/08/20 10:00 Lymph % (Auto) 13.1 % (19-41) L 06/08/20 10:00 Sunflower % (Auto) 8.8 % (0-10) 06/08/20 10:00 Eos % (Auto) 0.3 % (0-5) 06/08/20 10:00 Baso % (Auto) 0.4 % (0-1) 06/08/20 10:00 Absolute Neuts (auto) 5.9 X10^3/uL (2.0-7.7) 06/08/20 10:00 Absolute Lymphs (auto) 1.01 X10^3/uL (0.83-4.51) 06/08/20 10:00 Nucleated RBC % 0 % (0-5) 06/08/20 10:00 PT 13.1 SECONDS (11.7-14.9) 06/08/20 10:00 INR 1.1 06/08/20 10:00 APTT 32.7 Seconds (24.1-36.2) 06/08/20 10:00 Sodium 137 mmol/L (136-145) 06/08/20 10:00 Potassium 3.5 mmol/L (3.5-5.1) 06/08/20 10:00 Chloride 104 mmol/L (98-107) 06/08/20 10:00 Carbon Dioxide 26.0 mmol/L (21.0-32.0) 06/08/20 10:00 Anion Gap 7 (5-15) 06/08/20 10:00 BUN 17 mg/dL (7-18) 06/08/20 10:00 Creatinine 1.43 mg/dL (0.70-1.30) H 06/08/20 10:00 Estim Creat Clear Calc 48.33 ml/min 06/08/20 10:00 Est GFR (MDRD) Af Amer 64 mL/min (>60) 06/08/20 10:00 Est GFR (MDRD) Non-Af 53 mL/min (>60) L 06/08/20 10:00 BUN/Creatinine Ratio 11.9 RATIO (10-20) 06/08/20 10:00 Glucose 100 mg/dL (74-106) 06/08/20 10:00 Calcium 8.7 mg/dL (8.5-10.1) 06/08/20 10:00 Troponin I < 0.015 ng/mL (<0.045) 06/08/20 10:00 - EKG Initial EKG Interpretation: Sinus Rhythm - EKG demonstrates normal sinus rhythm at a rate of 70. No significant change compared to prior - Medical Decision Making She remained pretty significantly hypertensive with systolic readings around 200 and diastolic around 110. He received labetalol and had minimal improvement. I gave him hydralazine and his pressure decreased to about 123/80. I spoke with on-call cardiology. He is already reached 10 mg of amlodipine. His heart rates in the 80s so we are going to increase his carvedilol to 25 twice daily and increase his lisinopril to 10. He is to record his blood pressures and follow- up in the office with cardiology next week. I do not see evidence of acute stroke. Do not think this is dissection or NE. Symptoms have been present for over 3 days and are including only an increase of his numbness. Patient is comfortable with this plan. Patient states he really would prefer not to have to stay in the hospital if possible. ED Disposition - Plan for ED Patient: Disposition: Home or Assisted Living Diagnosis: Hypertensive urgency Instructions: ED Hypertension, Established Prescriptions: Carvedilol 25 mg PO BID #30 tablet Prescription Printed Referrals: Mendel Mckeon MD [STAFF PHYSICIAN] - (Call to arrange follow-up with cardiology next week for blood pressure checks.) Additional Instructions: We are going to be increasing your carvedilol to 25 mg twice a day. You can fill the new prescription for the new tablets or-year-old tablets of 12.5 mg so you could take 2 tablets twice a day. I also recommend you increase your lisinopril to 10 mg a day. While you are waiting to see cardiology next week simply double your lisinopril dose to 2 tablets once a day.
== END 2020-06-08 13:55 | disposition home or self-care (01) ==
PROVIDERS: Emergency Provider Emergency Medicine; PCP Internal Medicine
DX: I16.0 Hypertensive urgency (principal); I25.10 Atherosclerotic heart disease of native coronary artery without angina pectoris; F32.9 Major depressive disorder, single episode, unspecified; F41.9 Anxiety disorder, unspecified; E78.5 Hyperlipidemia, unspecified; I25.5 Ischemic cardiomyopathy; I27.21 Secondary pulmonary arterial hypertension; Z88.5 Allergy status to narcotic agent; Z86.73 Personal history of transient ischemic attack (TIA), and cerebral infarction without residual deficits; Z95.1 Presence of aortocoronary bypass graft; Z87.891 Personal history of nicotine dependence; Z82.49 Family history of ischemic heart disease and other diseases of the circulatory system; Z63.72 Alcoholism and drug addiction in family
CPT/HCPCS: 70496; 70498; 71045; 80048; 84484; 85025; 85610; 85730; 93005; 99284; Q9967; A4216

== ENCOUNTER → 2020-06-15 11:13 | Outpatient (CLI) | payer MEDICARE, SELFPAY ==
[2020-06-15 10:53] VITALS: BMI 25.4
[2020-06-15 12:58] LABS: T4 Free Direct 0.87 ng/dL (0.76-1.46); Thyroid Stim Hormone (TSH) 1.97 uIU/mL (0.358-3.74)
== END ==
PROVIDERS: PCP Internal Medicine; Visit Provider Internal Medicine
DX: E78.5 Hyperlipidemia, unspecified (principal); I10 Essential (primary) hypertension
CPT/HCPCS: 36415; 84439; 84443

== ENCOUNTER → 2020-08-28 13:14 | Outpatient (CLI) | payer MEDICARE, SELFPAY ==
[2020-08-28 12:55] VITALS: BMI 25.4
[2020-08-28 16:39] LABS: Anion Gap 6 (5-15); BUN 25 mg/dL (7-18); BUN/Creat Ratio 13.3 RATIO (10-20); Calcium,Total 8.5 mg/dL (8.5-10.1); Chloride 110 mmol/L (98-107); Creatinine, Serum 1.88 mg/dL (0.70-1.30); EST Glomerular Filtration Rate 39 mL/min (>60); Est Glom Filt Rate - Afr Amer 47 mL/min (>60); Glucose 109 mg/dL (74-106); Potassium 4.5 mmol/L (3.5-5.1); Sodium Level 138 mmol/L (136-145)
== END ==
PROVIDERS: PCP Internal Medicine; Referring Provider Internal Medicine; Visit Provider Internal Medicine
DX: I10 Essential (primary) hypertension (principal)
CPT/HCPCS: 36415; 80048

== ENCOUNTER → 2020-09-25 13:39 | Outpatient (CLI) | payer MEDICARE, SELFPAY ==
[2020-09-25 13:05] VITALS: BMI 25.4
[2020-09-25 15:28] LABS: Anion Gap 5 (5-15); BUN 32 mg/dL (7-18); BUN/Creat Ratio 15.2 RATIO (10-20); Calcium,Total 8.7 mg/dL (8.5-10.1); Chloride 110 mmol/L (98-107); Creatinine, Serum 2.11 mg/dL (0.70-1.30); EST Glomerular Filtration Rate 34 mL/min (>60); Est Glom Filt Rate - Afr Amer 41 mL/min (>60); Glucose 111 mg/dL (74-106); Potassium 5.4 mmol/L (3.5-5.1); Sodium Level 139 mmol/L (136-145)
== END ==
PROVIDERS: PCP Internal Medicine; Visit Provider Nurse Practitioner Family
DX: I10 Essential (primary) hypertension (principal)
CPT/HCPCS: 36415; 80048

== ENCOUNTER → 2020-12-29 13:48 | Outpatient (CLI) | payer MEDICARE, SELFPAY ==
[2020-12-29 15:22] LABS: Anion Gap 5 (5-15); BUN 22 mg/dL (7-18); Chloride 109 mmol/L (98-107); Creatinine, Serum 2.21 mg/dL (0.70-1.30); EST Glomerular Filtration Rate 32 mL/min (>60); Est Glom Filt Rate - Afr Amer 39 mL/min (>60); Glucose 106 mg/dL (74-106); PSA,Total - Annual Screen 7.11 ng/mL (0.00-4.00); Sodium Level 137 mmol/L (136-145)
== END ==
PROVIDERS: PCP Internal Medicine; Referring Provider Nurse Practitioner Family; Visit Provider Nurse Practitioner Family
DX: I10 Essential (primary) hypertension (principal); Z12.5 Encounter for screening for malignant neoplasm of prostate
CPT/HCPCS: 36415; 80048; 84153; G0103

== ENCOUNTER → 2021-07-23 | Outpatient (CLI) | payer MEDICARE, SELFPAY ==
[2021-07-23 12:27] LABS: Erythrocyte Sedimentation Rate 16 mm/hr (0-20)
[2021-07-23 12:28] LABS: Absolute Lymphocyte Count 1.48 X10^3/uL (0.83-4.51); Absolute Neutrophil Count 5.5 X10^3/uL (2.0-7.7); Basophil# 0.04 X10^3/uL; Basophil% 0.5 % (0-1); Eosinophil# 0.26 X10^3/uL; Eosinophils% 3.2 % (0-5); Hematocrit 44.1 % (40-54); Hemoglobin 14.6 g/dL (13.0-16.5); Lymphocyte # 1.48 X10^3/ul (0.83-4.51); Lymphocyte % 18.3 % (19-41); Mean Corp Hgb Conc 33.1 g/dL (32-36); Mean Corpuscular Volume 87.7 fL (80-94); Mean Platelet Vol. 11.6 fl (6.2-12.0); Monocyte# 0.75 X10^3/uL; Monocyte% 9.3 % (0-10); NRBC Flagged by Analyzer 0 % (0-5); Neutrophil # 5.51 X10^3/uL (2.7-7.7); Neutrophil % 68.3 % (47-70); Platelet Count 237 K/mm3 (150-450); RBC Distribution Width CV 12.5 % (11.6-14.6); RBC Distribution Width SD 40.3 fl (35.1-43.9); Red Blood Count 5.03 M/mm3 (4.6-6.2); White Blood Count 8.1 K/mm3 (4.4-11.0)
[2021-07-23 13:02] LABS: AST(SGOT) 10 U/L (15-37); Alanine Aminotransfer ALT/SGPT 20 U/L (16-61); Albumin, Serum 3.6 g/dL (3.2-5.0); Alkaline Phosphatase 97 U/L (45-117); Anion Gap 2 (5-15); BUN 24 mg/dL (7-18); BUN/Creat Ratio 11.4 RATIO (10-20); CRP 6.33 mg/L (0.0-3.0); Calcium,Total 8.9 mg/dL (8.5-10.1); Chloride 106 mmol/L (98-107); EST Glomerular Filtration Rate 34 mL/min (>60); Est Glom Filt Rate - Afr Amer 41 mL/min (>60); Globulin 3.6 g/dL (2.2-4.2); Glucose 99 mg/dL (74-106); Potassium 4.4 mmol/L (3.5-5.1); Protein, Total 7.2 g/dL (6.4-8.2); Sodium Level 135 mmol/L (136-145); T4 Free Direct 1.12 ng/dL (0.76-1.46); Thyroid Stim Hormone (TSH) 1.11 uIU/mL (0.358-3.74)
== END | disposition home or self-care (01) ==
LOC: BIMLAB 11:28
PROVIDERS: PCP Internal Medicine; Referring Provider Internal Medicine; Visit Provider Internal Medicine
DX: I10 Essential (primary) hypertension (principal); R53.81 Other malaise; R53.83 Other fatigue
CPT/HCPCS: 36415; 80053; 84439; 84443; 85025; 85652; 86140

== ENCOUNTER → 2021-09-03 | Outpatient (CLI) | payer MEDICARE, SELFPAY ==
[2021-09-03 13:04] LABS: Anion Gap 5 (5-15); BUN 21 mg/dL (7-18); BUN/Creat Ratio 10.7 RATIO (10-20); Calcium,Total 9.3 mg/dL (8.5-10.1); Chloride 104 mmol/L (98-107); Creatinine, Serum 1.97 mg/dL (0.70-1.30); EST Glomerular Filtration Rate 37 mL/min (>60); Est Glom Filt Rate - Afr Amer 44 mL/min (>60); Glucose 110 mg/dL (74-106); Potassium 4.6 mmol/L (3.5-5.1); Sodium Level 133 mmol/L (136-145)
== END | disposition home or self-care (01) ==
LOC: BIMLAB 11:28
PROVIDERS: PCP Internal Medicine; Referring Provider Internal Medicine; Visit Provider Internal Medicine
DX: I10 Essential (primary) hypertension (principal)
CPT/HCPCS: 36415; 80048

== ENCOUNTER → 2021-12-08 | Outpatient (CLI) | payer MEDICARE, SELFPAY ==
--- NOTE | 2021-12-08 08:50 | ECHOD_ITS ---
Version 2 Reason For Study: CARDIOMYOPATHY Procedure This was a 2D Doppler, Color Flow transthoracic echocardiogram. Exam performed in department. Left Ventricle Normal LV size. Stage 1 diastolic dysfunction. The estimated ejection fraction is 45 %. No regional wall motion abnormalities noted. Right Ventricle Normal RV size. Normal systolic function. Atria Normal left atrium. Normal right atrium. Mitral Valve There is moderate mitral annular calcification. Tricuspid Valve Normal tricuspid valve. Mild tricuspid valve insufficiency. Pulmonary artery systolic pressure is 34 mmHg. Aortic Valve Trisinus/trileaflet aortic valve. Mild focal aortic valve calcification. Mild aortic stenosis. Peak aortic valve gradient 18 mmHg. Mean aortic valve gradient 9 mmHg. Calculated aortic valve area (continuity equation) is 1.5 cm2. Pulmonic Valve Normal pulmonic valve. Great Vessels Normal aortic root. The pulmonary artery is normal size. Normal inferior vena cava. Pericardium/Pleural No pericardial effusion. MMode/2D Measurements & Calculations LVIDd: 4.9 cm IVSd: 1.1 cm LVOT diam: 2.2 cm LVIDs: 3.6 cm LVPWd: 1.1 cm LVOT area: 3.8 cm2 RVDd: 2.6 cm FS: 26.3 % Ao root diam: 3.7 cm LAV(MOD-bp): 56.6 ml LA A4 area: 16.5 cm2 LAV(MOD-bp) Indexed: 31.2 ml/m2 LAV(MOD-sp2): 63.8 ml LAV(MOD-sp4): 47.4 ml LA dimension(2D): 4.1 cm RA A4 area: 14.5 cm2 Time Measurements MV dec time: 0.24 sec Doppler Measurements & Calculations MV E max anthony: 78.3 cm/sec Lat Peak E' Anthony: 7.2 cm/sec Med Peak E' Anthony: 4.0 cm/sec MV A max anthony: 93.2 cm/sec E/E' lat: 10.9 E/E' med: 19.4 MV E/A: 0.84 MV dec slope: 328.9 cm/sec2 Ao V2 max: 214.0 cm/sec LV V1 max: 86.0 cm/sec Ao max P.3 mmHg LV V1 max P.0 mmHg Ao V2 mean: 142.3 cm/sec LV V1 mean P.5 mmHg Ao mean P.5 mmHg LV V1 mean: 57.1 cm/sec Ao V2 VTI: 50.2 cm LV V1 VTI: 19.5 cm RADHA(I,D): 1.5 cm2 RADHA(V,D): 1.5 cm2 SV(LVOT): 73.3 ml PA V2 max: 96.8 cm/sec TR max anthony: 269.2 cm/sec PA V2 mean: 59.9 cm/sec TR max P.0 mmHg ECHO/Echo Complete Interpretation Summary Normal LV size. Stage 1 diastolic dysfunction. Mild focal aortic valve calcification. Mild aortic stenosis. Calculated aortic valve area (continuity equation) is 1.5 cm2. The estimated ejection fraction is 45 %. Ordering Physician: Kinsey Ma Referring Physician: Jn Worthington Performed By: Jasmyne Upton RDCS, RVT
== END | disposition home or self-care (01) ==
LOC: CVS 08:49
PROVIDERS: PCP Internal Medicine; Referring Provider Nurse Practitioner Gerontology; Visit Provider Nurse Practitioner Gerontology
DX: I25.5 Ischemic cardiomyopathy (principal)
CPT/HCPCS: 93306

== ENCOUNTER → 2022-02-11 | Outpatient (CLI) | payer MEDICARE, SELFPAY ==
[2022-02-11 12:29] LABS: Absolute Lymphocyte Count 1.38 X10^3/uL (0.83-4.51); Absolute Neutrophil Count 5.2 X10^3/uL (2.0-7.7); Basophil# 0.04 X10^3/uL; Basophil% 0.5 % (0-1); Eosinophil# 0.03 X10^3/uL; Eosinophils% 0.4 % (0-5); Hematocrit 45.2 % (40-54); Hemoglobin 14.4 g/dL (13.0-16.5); Lymphocyte # 1.38 X10^3/ul (0.83-4.51); Lymphocyte % 18.6 % (19-41); Mean Corp Hgb Conc 31.9 g/dL (32-36); Mean Corpuscular Hgb 29.2 pg (27.0-32.0); Mean Corpuscular Volume 91.7 fL (80-94); Mean Platelet Vol. 11.3 fl (6.2-12.0); Monocyte# 0.72 X10^3/uL; Monocyte% 9.7 % (0-10); NRBC Flagged by Analyzer 0 % (0-5); Neutrophil # 5.23 X10^3/uL (2.7-7.7); Neutrophil % 70.4 % (47-70); Platelet Count 241 K/mm3 (150-450); RBC Distribution Width CV 12.4 % (11.6-14.6); RBC Distribution Width SD 41.4 fl (35.1-43.9); Red Blood Count 4.93 M/mm3 (4.6-6.2); White Blood Count 7.4 K/mm3 (4.4-11.0)
[2022-02-11 12:54] LABS: AST(SGOT) 14 U/L (15-37); Alanine Aminotransfer ALT/SGPT 20 U/L (16-61); Albumin, Serum 3.5 g/dL (3.2-5.0); Alkaline Phosphatase 89 U/L (45-117); Anion Gap 2 (5-15); BUN 16 mg/dL (7-18); BUN/Creat Ratio 9.8 RATIO (10-20); Bilirubin, Direct 0.12 mg/dL (0.00-0.30); Calcium,Total 8.7 mg/dL (8.5-10.1); Chloride 110 mmol/L (98-107); Cholesterol 195 mg/dL (200); Creatinine, Serum 1.63 mg/dL (0.70-1.30); EST Glomerular Filtration Rate 45 mL/min (>60); Est Glom Filt Rate - Afr Amer 55 mL/min (>60); Globulin 3.6 g/dL (2.2-4.2); Glucose 109 mg/dL (74-106); High Density Lipoprotein 33 mg/dL; PSA,Total - Annual Screen 6.16 ng/mL (0.00-4.00); Potassium 4.2 mmol/L (3.5-5.1); Protein, Total 7.1 g/dL (6.4-8.2); Sodium Level 138 mmol/L (136-145); Triglycerides 242 mg/dL; Very Low Density Lipoprotein 48 mg/dL (5-40)
== END | disposition home or self-care (01) ==
LOC: BIMLAB 11:45
PROVIDERS: PCP Internal Medicine; Referring Provider Internal Medicine; Visit Provider Internal Medicine
DX: I10 Essential (primary) hypertension (principal); E78.5 Hyperlipidemia, unspecified; R97.20 Elevated prostate specific antigen [PSA]; N40.0 Benign prostatic hyperplasia without lower urinary tract symptoms
CPT/HCPCS: 36415; 80053; 80061; 82248; 84153; 85025; G0103

== ENCOUNTER → 2022-05-18 | Outpatient (CLI) | payer MEDICARE, SELFPAY ==
[2022-05-18 12:29] LABS: Absolute Lymphocyte Count 1.13 X10^3/uL (0.83-4.51); Basophil# 0.04 X10^3/uL; Basophil% 0.6 % (0-1); Eosinophil# 0.01 X10^3/uL; Eosinophils% 0.1 % (0-5); Hematocrit 43.6 % (40-54); Hemoglobin 14.2 g/dL (13.0-16.5); Lymphocyte # 1.13 X10^3/ul (0.83-4.51); Lymphocyte % 16.9 % (19-41); Mean Corp Hgb Conc 32.6 g/dL (32-36); Mean Platelet Vol. 10.8 fl (6.2-12.0); Monocyte# 0.56 X10^3/uL; Monocyte% 8.4 % (0-10); NRBC Flagged by Analyzer 0 % (0-5); Neutrophil # 4.95 X10^3/uL (2.7-7.7); Neutrophil % 73.9 % (47-70); Platelet Count 265 K/mm3 (150-450); RBC Distribution Width CV 12.9 % (11.6-14.6); RBC Distribution Width SD 42.5 fl (35.1-43.9); White Blood Count 6.7 K/mm3 (4.4-11.0)
[2022-05-18 12:46] LABS: Anion Gap 8 (5-15); BUN 13 mg/dL (7-18); BUN/Creat Ratio 7.6 RATIO (10-20); Calcium,Total 8.8 mg/dL (8.5-10.1); Chloride 107 mmol/L (98-107); Creatinine, Serum 1.71 mg/dL (0.70-1.30); EST Glomerular Filtration Rate 43 mL/min (>60); Est Glom Filt Rate - Afr Amer 52 mL/min (>60); Glucose 131 mg/dL (74-106); Potassium 3.8 mmol/L (3.5-5.1); Sodium Level 137 mmol/L (136-145)
[2022-05-18 16:53] LABS: Hemoglobin A1c 5.4 % (3.8-5.6)
[2022-05-21 10:08] LABS: Testosterone, Free 10.34 ng/dL (5.00-21.00)
[2022-05-21 14:16] LABS: Testosterone, % Free 2.06 % (1.50-4.20); Testosterone, Total 502 ng/dL (264-916)
== END | disposition home or self-care (01) ==
LOC: BIMLAB 10:59
PROVIDERS: PCP Internal Medicine; Visit Provider Internal Medicine
DX: I10 Essential (primary) hypertension (principal); R73.9 Hyperglycemia, unspecified; N52.9 Male erectile dysfunction, unspecified
CPT/HCPCS: 36415; 80048; 83036; 84402; 84403; 85025

== ENCOUNTER → 2022-05-25 | Outpatient (CLI) | payer MEDICARE, SELFPAY ==
[2022-05-25 13:32] LABS: AST(SGOT) 13 U/L (15-37); Alanine Aminotransfer ALT/SGPT 17 U/L (16-61); Albumin, Serum 3.4 g/dL (3.2-5.0); Alkaline Phosphatase 98 U/L (45-117); Bilirubin, Direct 0.07 mg/dL (0.00-0.30); Cholesterol 186 mg/dL (200); Globulin 3.7 g/dL (2.2-4.2); High Density Lipoprotein 38 mg/dL; Protein, Total 7.1 g/dL (6.4-8.2); Triglycerides 146 mg/dL; Very Low Density Lipoprotein 29 mg/dL (5-40)
== END | disposition home or self-care (01) ==
LOC: BIMLAB 10:35
PROVIDERS: PCP Internal Medicine; Referring Provider Nurse Practitioner Gerontology; Visit Provider Nurse Practitioner Gerontology
DX: E78.5 Hyperlipidemia, unspecified (principal)
CPT/HCPCS: 36415; 80061; 80076

== ENCOUNTER 2022-09-08 13:53 | Inpatient (IN) | payer MEDICARE, SELFPAY ==
[2022-09-08] VITALS (7 sets, daily range): BP systolic 184–217; BP diastolic 96–115; PULSE 69–90; RESP 16–18; TEMP 36.1–36.9; O2SAT 94–100; BMI 25.9; BMI 26.5
--- NOTE | 2022-09-08 14:29 | EX.ED.DYSGE1 ---
HPI <GINI Higginbotham - Last Filed: 09/08/22 19:00> History of Present Illness Chief Complaint: General Illness Narrative Narrative: Patient presenting today with his due to concerns for fatigue that he has had over the past few weeks that has been getting worse, his reports that he is not getting out of bed as much and all he does is lay around and watch TV. She also reports that he has seemed more confused over the past few days and does not really have a history of confusion. He has also had a decreased appetite. When he took his blood pressure earlier today he noticed that it was elevated and called his PCP who encouraged him to come into the ED for evaluation given his symptoms. He reports a cough that he has had over the past week or so. He denies any chest pain, shortness of breath, abdominal pain, nausea or vomiting, and urinary symptoms. PMH previous CABG, CVA, CKD, and hypertension. PFSH <GINI Higginbotham - Last Filed: 09/08/22 19:00> PFSH Medical History Atherosclerosis of coronary artery of [place] heart without angina pectoris Blood glucose elevated BPH (benign prostatic hyperplasia) CKD (chronic kidney disease) CVA (cerebral vascular accident) Depression Dizziness Elevated PSA, less than 10 ng/ml Erectile dysfunction Essential (primary) hypertension Facial paresthesia Facial paresthesia Fatigue Hematuria History of myocardial infarction HLD (hyperlipidemia) Ischemic cardiomyopathy Left ventricular diastolic dysfunction Malaise and fatigue Nonrheumatic mitral (valve) insufficiency Normal colonoscopy Secondary pulmonary arterial hypertension Stenosis of right carotid artery Tobacco user Home Medications aspirin 81 mg chewable tablet 81 mg PO DAILY@0800 10/23/18 [Rx Last Taken Unknown] cholecalciferol (vitamin D3) 50 mcg (2,000 unit) capsule 50 mcg PO DAILY 10/08/19 [History Last Taken Unknown] amlodipine 10 mg tablet 10 mg PO DAILY #90 tabs 03/11/21 [Rx Last Taken Unknown] duloxetine 30 mg capsule,delayed release 30 mg PO BID #180 caps 08/04/21 [Rx Last Taken Unknown] doxazosin 4 mg tablet 2 mg PO QHS 03/15/22 [History Last Taken Unknown] carvedilol 25 mg tablet 25 mg PO BID #180 tabs 05/16/22 [Rx Last Taken Unknown] pravastatin 80 mg tablet 80 mg PO QHS #30 tabs 07/01/22 [Rx Last Taken Unknown] sacubitril 49 mg-valsartan 51 mg tablet (Entresto) 1 tab PO BID #60 tabs 08/26/22 [Rx Last Taken Unknown] Allergy/AdvReac Type Severity Reaction Status Date / Time codeine AdvReac Upset Verified 09/08/22 13:57 Stomach Family History Father Heart disease Alcoholism Brother Alcoholism Grandfather Heart disease Surgical History H/O coronary artery bypass surgery (2013) History of colonoscopy History of left heart catheterization (10/22/18) History of prostate biopsy History of right-sided carotid endarterectomy (2010) Social History (Updated 09/08/22 @ 18:54 by Génesis Torres) housing: house Smoking Status: Former smoker Tobacco: How many years used: 35 alcohol intake: never substance use type: does not use what type of physical activity do you participate in: walking frequency: daily ROS <GINI Higginbotham - Last Filed: 09/08/22 19:00> ROS ED Constitutional Constitutional ED: Denies chills or fever(s) Eyes Eyes: Denies change in vision Cardiovascular Cardiovascular: Denies chest pain or palpitations Respiratory/Chest Respiratory/Chest: Reports cough; Denies dyspnea or dyspnea on exertion Gastrointestinal Gastrointestinal: Denies abdominal pain, constipation, diarrhea, nausea or vomiting Genitourinary Genitourinary ED: Denies dysuria, hematuria or urinary urgency Musculoskeletal Musculoskeletal: Denies arthralgias or myalgias Integumentary Denies rash Neurologic Neurologic: Reports confusion; Denies dizziness, headache(s), paresthesias or weakness Psychiatric Psychiatric: Denies anxiety or depression EXAM <GINI Higginbotham - Last Filed: 09/08/22 19:00> Physical Exam Const Vital Signs: 09/08/22 13:53 09/08/22 13:53 09/08/22 14:42 Temperature 97 F L Temperature Source Temporal Pulse Rate 79 69 Respiratory Rate 18 Respiratory Effort Normal Non-Labored Respiratory Pattern Normal Blood Pressure 217/115 H 193/107 H Blood Pressure Mean 149 135 Pulse Ox 100 Oxygen Delivery Method Room Air 09/08/22 15:53 Temperature Temperature Source Pulse Rate Respiratory Rate 18 Respiratory Effort Respiratory Pattern Blood Pressure Blood Pressure Mean Pulse Ox Oxygen Delivery Method Positive well nourished, well developed and no apparent distress General Appearance ED: well developed HEENT Reports normocephalic and head/scalp atraumatic Mouth ED: Yes moist mucous membranes normal Eyes PERRL and EOMs intact bilaterally Neck full ROM and supple Chest Wall inspection of chest normal Resp normal respiratory effort and clear to auscultation bilaterally Cardio regular rate and regular rhythm GI soft to palpation, non-tender, non-distended and no masses Back/Spine normal ROM and normal to inspection Extremity normal to inspection and full ROM Neuro oriented x3, CN's II-XII intact bilaterally, moves all extremities, no focal motor deficits and no sensory deficits noted Sensorium / Orientation: awake and alert Coordination / Balance: [id number] test normal and dkek-px-ohys test normal Speech: speech normal Motor Exam: strength 5/5 throughout Psych mental status grossly normal and thought process normal Skin no rashes or lesions noted and no wounds <Dr. Simeon Velasquez MD - Last Filed: 09/08/22 21:56> Physical Exam Const Vital Signs: 09/08/22 13:53 09/08/22 13:53 09/08/22 14:42 Temperature 97 F L Temperature Source Temporal Pulse Rate 79 69 Respiratory Rate 18 Respiratory Effort Normal Non-Labored Respiratory Pattern Normal Blood Pressure 217/115 H 193/107 H Blood Pressure Mean 149 135 Pulse Ox 100 Oxygen Delivery Method Room Air 09/08/22 15:53 Temperature Temperature Source Pulse Rate Respiratory Rate 18 Respiratory Effort Respiratory Pattern Blood Pressure Blood Pressure Mean Pulse Ox Oxygen Delivery Method [facility] <GINI Higginbotham - Last Filed: 09/08/22 19:00> [facility] Narrative Medical decision making narrative: Patient presenting due to new onset confusion over the past week or 2, his reports, he has just not been acting right at all I am very concerned about him. He reports that he just does not feel right but is unable to tell me exactly why. He has been very fatigued and his reports that at times she feels that he has expressive aphasia. History of a previous stroke. Examination is unremarkable, NIH is 0 and I am not seeing any neurological deficit. He is hypertensive here. Labs to be obtained to rule out leukocytosis, anemia, showed abnormality, UTI. He has had a cough that has been worsening, chest x-ray obtained to rule out pneumonia and is negative for any acute findings. Head CT obtained given the new onset confusion and does show subacute ischemic changes involving the posterior aspect of the right periatrial lobe and occipital lobe. At this point, I feel patient needs to be brought in for further stroke work-up. I did speak with the hospitalist and he agrees. Patient will be admitted in stable condition and is comfortable with plan. Lab Data Attestation: I reviewed the patient's lab results. Labs: Laboratory Results - last 24 hr 09/08/22 09/08/22 15:10 16:57 WBC 7.1 RBC 5.24 Hgb 15.3 Hct 45.4 MCV 86.6 MCH 29.2 MCHC 33.7 RDW Std Deviation 42.1 RDW Coeff of [place] 13.4 Plt Count 257 MPV 10.1 Immature Gran % (Auto) 0.100 Neut % (Auto) 74.4 H Lymph % (Auto) 16.0 L [place] % (Auto) 9.1 Eos % (Auto) 0.1 Baso % (Auto) 0.3 Absolute Neuts (auto) 5.3 Absolute Lymphs (auto) 1.13 Nucleated RBC % 0 Sodium 136 Potassium 3.9 Chloride 103 Carbon Dioxide 25.0 Anion Gap 8 BUN 11 Creatinine 1.55 H Estim Creat Clear Calc 42.88 Est GFR (MDRD) Af Amer 58 L Est GFR (MDRD) Non-Af 48 L BUN/Creatinine Ratio 7.1 L Glucose 101 Calcium 8.9 Urine Color Yellow Urine Clarity Clear Urine pH 6.5 Ur Specific [place] 1.010 Urine Protein 15 H Urine Glucose (UA) Normal Urine Ketones Negative Urine Occult Blood 150 H Urine Nitrite Negative Urine Bilirubin Negative Urine Urobilinogen Normal Ur Leukocyte Esterase 25 H Urine RBC 5-10 SEEN Urine WBC 0-5 SEEN Ur Squamous Epith Cells 0 SEEN Urine Bacteria RARE Urine Mucus 0 SEEN Radiography X-Ray: Read by ED Physician and Read by Radiologist Diagnostic Testing: Clinical Impression(s) from Imaging Studies Brain CT 09/08/22 15:28 IMPRESSION: Chronic involutional changes of the brain. Findings suggestive of subacute ischemic change involving the posterior aspect of the right parietal lobe and occipital lobe. Electronically Signed: Bob Clifton MD at 15:44 EDT , Chest X-Ray 09/08/22 15:33 IMPRESSION: Hyperinflation. No acute abnormality is seen. Electronically Signed: Bob Clifton MD at 15:45 EDT , <Dr. Simeon Velasquez MD - Last Filed: 09/08/22 21:56> [facility] MDM Narrative Medical decision making narrative: Patient presenting due to new onset confusion over the past week or 2, his reports, he has just not been acting right at all I am very concerned about him. He reports that he just does not feel right but is unable to tell me exactly why. He has been very fatigued and his reports that at times she feels that he has expressive aphasia. History of a previous stroke. Examination is unremarkable, NIH is 0 and I am not seeing any neurological deficit. He is hypertensive here. Labs to be obtained to rule out leukocytosis, anemia, showed abnormality, UTI. He has had a cough that has been worsening, chest x-ray obtained to rule out pneumonia and is negative for any acute findings. Head CT obtained given the new onset confusion and does show subacute ischemic changes involving the posterior aspect of the right periatrial lobe and occipital lobe. At this point, I feel patient needs to be brought in for further stroke work-up. I did speak with the hospitalist and he agrees. Patient will be admitted in stable condition and is comfortable with plan. I have personally performed a face to face assessment of the patient and have reviewed the ZAFAR Note. I performed a substantive portion of the visit including all aspects of the following. My caro findings include: History is remarkable patient be a poor informant. Patient minimizes things. states he has not been eating well. Has had weight loss. He has no interest in doing anything. He is not very active. She is concerned he is not his normal self. There may be a slight personality change. Patient repeatedly looks at his when she told me things differently than he told me. His only complaint is that he does not feel right. Exam is remarkable for flat affect and depressed mood. Head is atraumatic no cephalic. Ears normal. TMs normal. Nares patent. Uvula midline. No deviation tongue with protrusion. Neck is supple. There is no carotid bruits. Pupils equal round reactive. Extraocular is intact. Sclera is anicteric. There is no visual field cut. Heart is regular. Rate is normal. There is no murmur, gallop or rub. Lungs are clear to auscultation. Abdomen is soft nontender. Slightly tympanitic. Patient is not alert but he is awake. Cranials 2 through 12 are intact. Motor or sensory are intact. There is no dysmetria. Medical Decision Making with change in mentation and personality obtain CT of the head looking for stroke versus neoplasm versus other cause. Also will obtain blood work to assess for metabolic and infectious cause. Other additions or changes: Blood pressure is elevated. Allowing for permissive hypertension since patient's had a stroke. Lab Data Lab results narrative: CBC is unremarkable. Electrolyte panel was elevated creatinine of 1.55 with a GFR 48. UA is negative. Labs: Laboratory Results - last 24 hr 09/08/22 09/08/22 15:10 16:57 WBC 7.1 RBC 5.24 Hgb 15.3 Hct 45.4 MCV 86.6 MCH 29.2 MCHC 33.7 RDW Std Deviation 42.1 RDW Coeff of [place] 13.4 Plt Count 257 MPV 10.1 Immature Gran % (Auto) 0.100 Neut % (Auto) 74.4 H Lymph % (Auto) 16.0 L [place] % (Auto) 9.1 Eos % (Auto) 0.1 Baso % (Auto) 0.3 Absolute Neuts (auto) 5.3 Absolute Lymphs (auto) 1.13 Nucleated RBC % 0 Sodium 136 Potassium 3.9 Chloride 103 Carbon Dioxide 25.0 Anion Gap 8 BUN 11 Creatinine 1.55 H Estim Creat Clear Calc 42.88 Est GFR (MDRD) Af Amer 58 L Est GFR (MDRD) Non-Af 48 L BUN/Creatinine Ratio 7.1 L Glucose 101 Calcium 8.9 Urine Color Yellow Urine Clarity Clear Urine pH 6.5 Ur Specific [place] 1.010 Urine Protein 15 H Urine Glucose (UA) Normal Urine Ketones Negative Urine Occult Blood 150 H Urine Nitrite Negative Urine Bilirubin Negative Urine Urobilinogen Normal Ur Leukocyte Esterase 25 H Urine RBC 5-10 SEEN Urine WBC 0-5 SEEN Ur Squamous Epith Cells 0 SEEN Urine Bacteria RARE Urine Mucus 0 SEEN Radiography Diagnostic Testing: Clinical Impression(s) from Imaging Studies Brain CT 09/08/22 15:28 IMPRESSION: Chronic involutional changes of the brain. Findings suggestive of subacute ischemic change involving the posterior aspect of the right parietal lobe and occipital lobe. Electronically Signed: Bob Clifton MD at 15:44 EDT , Chest X-Ray 09/08/22 15:33 IMPRESSION: Hyperinflation. No acute abnormality is seen. Electronically Signed: Bob Clifton MD at 15:45 EDT , Discharge Plan Dx/Rx/DC Orders Clinical Impression: CVA (cerebrovascular accident), Essential (primary) hypertension Disposition Disposition: Acute Care Hospital [facility] Discharge Date/Time: 09/08/22 18:28
--- NOTE | 2022-09-08 15:28 | CT_ITS ---
STUDY: CT BRAIN WITHOUT CONTRAST REASON FOR EXAM: Male, 67 years old. Confusion RADIATION DOSAGE (If Supplied By Facility): CTDIvol = ( 44.99 ) mGy, DLP = ( 829.85 ) mGycm TECHNIQUE: Transaxial CT imaging of the brain was performed without administration of intravenous contrast material. Individualized dose optimization techniques were used for this CT. COMPARISON: Comparison is made with prior study dated June 08, 2020. FINDINGS: Normal soft tissue structures. Normal calvarium. There is mild cerebral atrophy with widening of the extra-axial spaces and ventricular dilatation. There are areas of decreased attenuation within the white matter tracts of the supratentorial brain, consistent with microvascular disease changes. Focal area of decreased attenuation with loss of the gyri in the posterior aspect of the right parietal occipital lobe suggestive of subacute edema. Stable small bilateral basal ganglia infarcts. Normal brainstem. Normal cerebellum. There is no intracranial hemorrhage. There are no findings of an acute ischemic infarction. Normal visualized paranasal sinuses. CT/Brain/Head without Contrast IMPRESSION: Chronic involutional changes of the brain. Findings suggestive of subacute ischemic change involving the posterior aspect of the right parietal lobe and occipital lobe. Electronically Signed: Bob Clifton MD at 15:44 EDT ,
[2022-09-08 15:29] LABS: Absolute Lymphocyte Count 1.13 X10^3/uL (0.83-4.51); Absolute Neutrophil Count 5.3 X10^3/uL (2.0-7.7); Basophil# 0.02 X10^3/uL; Basophil% 0.3 % (0-1); Eosinophil# 0.01 X10^3/uL; Eosinophils% 0.1 % (0-5); Hematocrit 45.4 % (40-54); Hemoglobin 15.3 g/dL (13.0-16.5); Lymphocyte # 1.13 X10^3/ul (0.83-4.51); Mean Corp Hgb Conc 33.7 g/dL (32-36); Mean Corpuscular Hgb 29.2 pg (27.0-32.0); Mean Corpuscular Volume 86.6 fL (80-94); Mean Platelet Vol. 10.1 fl (6.2-12.0); Monocyte# 0.64 X10^3/uL; Monocyte% 9.1 % (0-10); NRBC Flagged by Analyzer 0 % (0-5); Neutrophil # 5.25 X10^3/uL (2.7-7.7); Neutrophil % 74.4 % (47-70); Platelet Count 257 K/mm3 (150-450); RBC Distribution Width CV 13.4 % (11.6-14.6); RBC Distribution Width SD 42.1 fl (35.1-43.9); Red Blood Count 5.24 M/mm3 (4.6-6.2); White Blood Count 7.1 K/mm3 (4.4-11.0)
--- NOTE | 2022-09-08 15:33 | RAD_ITS ---
STUDY: X-RAY CHEST REASON FOR EXAM: Male, 67 years old. Cough TECHNIQUE: PA and lateral views of the chest. COMPARISON: Comparison is made with prior study dated June 08, 2020. FINDINGS: EKG electrodes are seen. Hyperinflation. Scattered calcified granulomas. No acute abnormality is seen. There is no demonstrated pleural abnormality. Sternal cerclage wires and vascular clips are present from a prior sternotomy and coronary artery bypass graft procedure (CABG). Normal mediastinum and guerda. Normal visualized pulmonary arteries. There is atherosclerotic tortuosity of the aortic arch and descending thoracic aorta. There are degenerative changes of the visualized thoracic spine. Normal visualized ribs, clavicles, and shoulders. There is no demonstrated abnormality of the visualized soft tissue structures of the upper abdomen. RAD/Chest PA and Lateral IMPRESSION: Hyperinflation. No acute abnormality is seen. Electronically Signed: Bob Clifton MD at 15:45 EDT ,
[2022-09-08 15:40] LABS: Anion Gap 8 (5-15); BUN 11 mg/dL (7-18); BUN/Creat Ratio 7.1 RATIO (10-20); Calcium,Total 8.9 mg/dL (8.5-10.1); Chloride 103 mmol/L (98-107); Creatinine, Serum 1.55 mg/dL (0.70-1.30); EST Glomerular Filtration Rate 48 mL/min (>60); Est Glom Filt Rate - Afr Amer 58 mL/min (>60); Estimated Creatinine Clearance 42.88 ml/min; Glucose 101 mg/dL (74-106); Potassium 3.9 mmol/L (3.5-5.1); Sodium Level 136 mmol/L (136-145)
[2022-09-08 17:04] LABS: Mucous, Urine 0 SEEN /hpf (<or=2+); Squamous Epithelial Cells - UA 0 SEEN /hpf (0-5)
[2022-09-08 17:16] LABS: Color, Urine Yellow (Yellow); Glucose, Dipstick Normal (Normal); Ketone-Dipstick Negative (Negative); Leukocyte Esterase-Dipstick 25 /ul (Negative); Nitrite-Dipstick Negative (Negative); Occult Blood-Urine 150 /ul (Negative); Protein-Dipstick 15 mg/dl (Negative); Urine Bilirubin Dipstick Negative (Negative); Urine Clarity Clear (Clear); Urine Urobilinogen Normal (Normal); Urine pH 6.5 (5.0 - 8.0)
[2022-09-08 17:29] LABS: Bacteria RARE /hpf (None Seen); Red Blood Cells-Urine 5-10 SEEN /hpf (0-5); White Blood Cells 0-5 SEEN /hpf (0-5)
--- NOTE | 2022-09-08 17:45 | NURSING ---
DR REBECA AREVALO RODNEY
--- NOTE | 2022-09-08 17:51 | PCM.HP.STD ---
HPI - General General Date of Admission: 09/08/22 Date of Service: 09/08/22 Chief Complaint: Dizziness HPI Narrative ДМИТРИЙ BOJORQUEZ, is a 67 M who presents with dizziness. Patient was brought to the emergency department by the . Per history patient was apparently not acting himself and was complaining of feeling dizzy. Patient has also been experiencing extreme fatigue over the past couple of weeks. Patient had denied any falls. Denied any focal weakness however did experience weakness in both legs. Imaging studies obtained in the ED did show Findings suggestive of subacute ischemic change involving the posterior aspect of the right parietal lobe and occipital lobe. Patient admitted to a monitored bed as a case of subacute CVA for subsequent inpatient evaluation [facility] Medical History Atherosclerosis of coronary artery of [place] heart without angina pectoris Blood glucose elevated BPH (benign prostatic hyperplasia) CKD (chronic kidney disease) CVA (cerebral vascular accident) Depression Dizziness Elevated PSA, less than 10 ng/ml Erectile dysfunction Essential (primary) hypertension Facial paresthesia Facial paresthesia Fatigue Hematuria History of myocardial infarction HLD (hyperlipidemia) Ischemic cardiomyopathy Left ventricular diastolic dysfunction Malaise and fatigue Nonrheumatic mitral (valve) insufficiency Normal colonoscopy Secondary pulmonary arterial hypertension Stenosis of right carotid artery Tobacco user Home Medications aspirin 81 mg chewable tablet 81 mg PO DAILY@0800 10/23/18 [Rx Last Taken Unknown] cholecalciferol (vitamin D3) 50 mcg (2,000 unit) capsule 50 mcg PO DAILY 10/08/19 [History Last Taken Unknown] amlodipine 10 mg tablet 10 mg PO DAILY #90 tabs 03/11/21 [Rx Last Taken Unknown] duloxetine 30 mg capsule,delayed release 30 mg PO BID #180 caps 08/04/21 [Rx Last Taken Unknown] doxazosin 4 mg tablet 2 mg PO QHS 03/15/22 [History Last Taken Unknown] carvedilol 25 mg tablet 25 mg PO BID #180 tabs 05/16/22 [Rx Last Taken Unknown] pravastatin 80 mg tablet 80 mg PO QHS #30 tabs 07/01/22 [Rx Last Taken Unknown] sacubitril 49 mg-valsartan 51 mg tablet (Entresto) 1 tab PO BID #60 tabs 08/26/22 [Rx Last Taken Unknown] Allergy/AdvReac Type Severity Reaction Status Date / Time codeine AdvReac Upset Verified 09/08/22 13:57 Stomach Family History Father Heart disease Alcoholism Brother Alcoholism Grandfather Heart disease Surgical History H/O coronary artery bypass surgery (2013) History of colonoscopy History of left heart catheterization (10/22/18) History of prostate biopsy History of right-sided carotid endarterectomy (2010) Social History Smoking Status: Former smoker Tobacco: How many years used: 35 alcohol intake: never substance use type: does not use what type of physical activity do you participate in: walking frequency: daily ROS ROS Narrative GENERAL: Fatigue HEENT: denies headache, sinus congestion, or drainage, dysphagia RESPIRATORY: denies cough, sputum production, shortness of breath, dyspnea on exertion CARDIAC: denies chest pain, palpitations, orthopnea, PND GASTROINTESTINAL: denies abdominal pain, nausea, vomiting, melena, GENITOURINARY: denies dysuria, urgency, frequency, heamaturia EXTREMITY: denies swelling MUSCULOSKELETAL: denies current joint pain or tenderness NEUROLOGIC: Dizziness HEMATOLOGIC: denies easy bruising and/or hemorrhage INTEGUMENT: denies rashes PSYCHIATRIC: denies suicidal or homicidal ideation Vital Signs Vital Signs Vital Signs: 09/08/22 13:53 09/08/22 13:53 09/08/22 14:42 Temperature 97 F L Temperature Source Temporal Pulse Rate 79 69 Respiratory Rate 18 Respiratory Effort Normal Non-Labored Respiratory Pattern Normal Blood Pressure 217/115 H 193/107 H Blood Pressure Mean 149 135 Pulse Ox 100 Oxygen Delivery Method Room Air Weight Weight: 73.028 kg Body Mass Index (BMI) 25.9 Physical Exam Narrative GENERAL: cooperative HEENT: Atraumatic; normocephalic EYES; Anicteric, Normal Conjunctiva NECK; supple, normal thyroid, RESPIRATORY: Diminished to auscultation CARDIOVASCULAR: Regular S1 S2, GI: soft, normoactive bowel sounds, : No Renal angle tenderness; EXTREMITIES: No edema, no clubbing, MUSCULOSKELETAL: no muscle wasting NEURO: Awake; no lateralizing signs. SKIN: No Rash PSYCH; Flat affect Results Lab / Micro Data 09/08/22 15:10 09/08/22 15:10 Labs: Laboratory Results - last 24 hr 09/08/22 15:10: WBC 7.1, RBC 5.24, Hgb 15.3, Hct 45.4, MCV 86.6, MCH 29.2, MCHC 33.7, RDW Std Deviation 42.1, RDW Coeff of [place] 13.4, Plt Count 257, MPV 10.1, Immature Gran % (Auto) 0.100, Neut % (Auto) 74.4 H, Lymph % (Auto) 16.0 L, [place] % (Auto) 9.1, Eos % (Auto) 0.1, Baso % (Auto) 0.3, Absolute Neuts (auto) 5.3, Absolute Lymphs (auto) 1.13, Nucleated RBC % 0, Sodium 136, Potassium 3.9, Chloride 103, Carbon Dioxide 25.0, Anion Gap 8, BUN 11, Creatinine 1.55 H, Estim Creat Clear Calc 42.88, Est GFR (MDRD) Af Amer 58 L, Est GFR (MDRD) Non-Af 48 L, BUN/Creatinine Ratio 7.1 L, Glucose 101, Calcium 8.9 09/08/22 16:57: Urine Color Yellow, Urine Clarity Clear, Urine pH 6.5, Ur Specific [place] 1.010, Urine Protein 15 H, Urine Glucose (UA) Normal, Urine Ketones Negative, Urine Occult Blood 150 H, Urine Nitrite Negative, Urine Bilirubin Negative, Urine Urobilinogen Normal, Ur Leukocyte Esterase 25 H, Urine RBC 5-10 SEEN, Urine WBC 0-5 SEEN, Ur Squamous Epith Cells 0 SEEN, Urine Bacteria RARE, Urine Mucus 0 SEEN Radiology Impression Brain CT 09/08/22 15:28 IMPRESSION: Chronic involutional changes of the brain. Findings suggestive of subacute ischemic change involving the posterior aspect of the right parietal lobe and occipital lobe. Electronically Signed: Bob Clifton MD at 15:44 EDT , Chest X-Ray 09/08/22 15:33 IMPRESSION: Hyperinflation. No acute abnormality is seen. Electronically Signed: Bob Clifton MD at 15:45 EDT , Assessment & Plan Assessment/Plan (1) CVA (cerebral vascular accident): QUALIFIERS: CVA mechanism: occlusion PLAN: Plan Patient is a 67-year-old gentleman presenting with progressive generalized weakness dizziness and fatigue 1. Subacute CVA ? CT of the chest obtained on admission did show findings suggestive of subacute ischemic change involving the posterior aspect of the right parietal lobe and occipital lobe. Patient admitted to monitored bed ordered neurochecks every 4 hours. Patient started on on top platelet therapy with aspirin and Plavix as well as high-dose statin therapy. Ordered 2D echo, MRI of the head as well as venous duplex 2. Coronary artery disease ? With previous CABG. 3. Ischemic cardiomyopathy ? Patient is on recommended medications include Entresto as well as beta-blockers 4. Dyslipidemia -Patient is on statin therapy, continued at home dose 5. Hypertension - Blood pressure controlled, home medications continued with dose adjustment as needed 6. Chronic kidney disease stage III ? Kidney function at baseline 7. DVT prophylaxis ? SC Lovenox dose adjusted for kidney function Time spent in the patient's overall evaluation,decision-making process, review of diagnostic data, adjustment of management, discussion with other providers, nursing nursing and ancillary staff involved in patient's care documentation, 75 minutes Advance planning; did discuss with the patient and family regarding advanced directives as well as CODE STATUS. Did explain the various scenarios involved ( FULL CODE, DNR CCA, DNR CCA with no intubation, and DNR CC and what each meant) patient elected to remain full code with CPR and intubation if needed. Order was placed. Time spent on discussion 18 minutes. Charges/Coding Visit Charges Inpatient E&M: 83047 Init Hosp L3 Procedures Hospitalists Procedures: 26022 Advncd Care Plan 30 Min
--- NOTE | 2022-09-08 18:02 | NURSING ---
PCU [facility] CVA
--- NOTE | 2022-09-08 18:14 | EDS_ITS ---
HPI History of Present Illness Chief Complaint: General Illness Detail of Chief Complaint: This is a duplicated chart please erase PFSH PFSH Medical History Atherosclerosis of coronary artery of three affiliated heart without angina pectoris Blood glucose elevated BPH (benign prostatic hyperplasia) CKD (chronic kidney disease) CVA (cerebral vascular accident) Depression Dizziness Elevated PSA, less than 10 ng/ml Erectile dysfunction Essential (primary) hypertension Facial paresthesia Facial paresthesia Fatigue Hematuria History of myocardial infarction HLD (hyperlipidemia) Ischemic cardiomyopathy Left ventricular diastolic dysfunction Malaise and fatigue Nonrheumatic mitral (valve) insufficiency Normal colonoscopy Secondary pulmonary arterial hypertension Stenosis of right carotid artery Tobacco user Home Medications aspirin 81 mg chewable tablet 81 mg PO DAILY@0800 10/23/18 [Rx Last Taken Unknown] cholecalciferol (vitamin D3) 50 mcg (2,000 unit) capsule 50 mcg PO DAILY 10/08/19 [History Last Taken Unknown] amlodipine 10 mg tablet 10 mg PO DAILY #90 tabs 03/11/21 [Rx Last Taken Unknown] duloxetine 30 mg capsule,delayed release 30 mg PO BID #180 caps 08/04/21 [Rx Last Taken Unknown] doxazosin 4 mg tablet 2 mg PO QHS 03/15/22 [History Last Taken Unknown] carvedilol 25 mg tablet 25 mg PO BID #180 tabs 05/16/22 [Rx Last Taken Unknown] pravastatin 80 mg tablet 80 mg PO QHS #30 tabs 07/01/22 [Rx Last Taken Unknown] sacubitril 49 mg-valsartan 51 mg tablet (Entresto) 1 tab PO BID #60 tabs 08/26/22 [Rx Last Taken Unknown] Allergy/AdvReac Type Severity Reaction Status Date / Time codeine AdvReac Upset Verified 09/08/22 13:57 Stomach Family History Father Heart disease Alcoholism Brother Alcoholism Grandfather Heart disease Surgical History H/O coronary artery bypass surgery (2013) History of colonoscopy History of left heart catheterization (10/22/18) History of prostate biopsy History of right-sided carotid endarterectomy (2010) Social History (Updated 09/08/22 @ 18:54 by Génesis Torres) housing: house Smoking Status: Former smoker Tobacco: How many years used: 35 alcohol intake: never substance use type: does not use what type of physical activity do you participate in: walking frequency: daily EXAM Physical Exam Const Vital Signs: 09/08/22 13:53 09/08/22 13:53 09/08/22 14:42 Temperature 97 F L Temperature Source Temporal Pulse Rate 79 69 Respiratory Rate 18 Respiratory Effort Normal Non-Labored Respiratory Pattern Normal Blood Pressure 217/115 H 193/107 H Blood Pressure Mean 149 135 Pulse Ox 100 Oxygen Delivery Method Room Air 09/08/22 15:53 Temperature Temperature Source Pulse Rate Respiratory Rate 18 Respiratory Effort Respiratory Pattern Blood Pressure Blood Pressure Mean Pulse Ox Oxygen Delivery Method MDM MDM Lab Data Labs: Laboratory Results - last 24 hr 09/08/22 09/08/22 15:10 16:57 WBC 7.1 RBC 5.24 Hgb 15.3 Hct 45.4 MCV 86.6 MCH 29.2 MCHC 33.7 RDW Std Deviation 42.1 RDW Coeff of [place] 13.4 Plt Count 257 MPV 10.1 Immature Gran % (Auto) 0.100 Neut % (Auto) 74.4 H Lymph % (Auto) 16.0 L [place] % (Auto) 9.1 Eos % (Auto) 0.1 Baso % (Auto) 0.3 Absolute Neuts (auto) 5.3 Absolute Lymphs (auto) 1.13 Nucleated RBC % 0 Sodium 136 Potassium 3.9 Chloride 103 Carbon Dioxide 25.0 Anion Gap 8 BUN 11 Creatinine 1.55 H Estim Creat Clear Calc 42.88 Est GFR (MDRD) Af Amer 58 L Est GFR (MDRD) Non-Af 48 L BUN/Creatinine Ratio 7.1 L Glucose 101 Calcium 8.9 Urine Color Yellow Urine Clarity Clear Urine pH 6.5 Ur Specific [place] 1.010 Urine Protein 15 H Urine Glucose (UA) Normal Urine Ketones Negative Urine Occult Blood 150 H Urine Nitrite Negative Urine Bilirubin Negative Urine Urobilinogen Normal Ur Leukocyte Esterase 25 H Urine RBC 5-10 SEEN Urine WBC 0-5 SEEN Ur Squamous Epith Cells 0 SEEN Urine Bacteria RARE Urine Mucus 0 SEEN Radiography Diagnostic Testing: Clinical Impression(s) from Imaging Studies Brain CT 09/08/22 15:28 IMPRESSION: Chronic involutional changes of the brain. Findings suggestive of subacute ischemic change involving the posterior aspect of the right parietal lobe and occipital lobe. Electronically Signed: Bob Clifton MD at 15:44 EDT , Chest X-Ray 09/08/22 15:33 IMPRESSION: Hyperinflation. No acute abnormality is seen. Electronically Signed: Bob Clifton MD at 15:45 EDT , Discharge Plan Dx/Rx/DC Orders Clinical Impression: CVA (cerebrovascular accident), Essential (primary) hypertension Disposition Disposition: Acute Care Hospital [facility] Discharge Date/Time: 09/08/22 18:28
--- NOTE | 2022-09-08 20:03 | CDU_ITS ---
Reason For Study: Acute CVA Rt. Velocities/BP Lt. Velocities/BP Prox CCA 41.5/10.2 cm/sec. Prox CCA 59.1/11.0 cm/sec. Mid CCA 44.3/13.7 cm/sec. Mid CCA 45.9/7.2 cm/sec. Dist CCA 51.5/9.5 cm/sec. Dist CCA 35.6/4.8 cm/sec. Prox ICA 240.2/75.3 cm/sec. Prox ICA 52.5/16.6 cm/sec. Mid ICA 89.8/24.1 cm/sec. Mid ICA 70.8/6.9 cm/sec. Dist ICA 59.5/15.3 cm/sec. Dist ICA 60.7/14.5 cm/sec. Rt. ICA/CCA = 5.43. Lt. ICA/CCA = 1.54. Prox ECA 60.7/6.0 cm/sec. Prox ECA 96.9/9.5 cm/sec. Rt. Vert. 31.9/7.5 cm/sec. Lt. Vert. 31.9/7.5 cm/sec. Right Extracranial There is homogeneous, smooth atherosclerotic plaque noted in the right common carotid artery. There is heterogeneous, irregular atherosclerotic plaque noted in the right internal carotid artery. The atherosclerotic plaque causes acoustic shadowing. HX Endarterectomy. The right external carotid artery is not well visualized. Antegrade flow is noted in the right vertebral artery. There is heterogeneous, irregular atherosclerotic plaque noted in the right bulb. Left Extracranial There is homogeneous, smooth atherosclerotic plaque noted in the left common carotid artery. There is heterogeneous, irregular atherosclerotic plaque noted in the left internal carotid artery. The atherosclerotic plaque causes acoustic shadowing. There is heterogeneous, irregular atherosclerotic plaque noted in the left external carotid artery. Antegrade flow is noted in the left vertebral artery. There is heterogeneous, irregular atherosclerotic plaque noted in the left bulb. Procedure Carotid Duplex [id number]. This is a Carotid Duplex examination using B-mode, color flow and specral Doppler. The exam was diagnostic. The study was technically difficult due to patient cooperation and calcific shadowing. Exam performed in department. Preliminary results reported to PCU crew leader gluing. VL/Carotid Duplex Ultrasound Interpretation Summary Severe (>70%) stenosis right extracranial internal carotid. Mild (<50%) stenosis left extracranial internal carotid. Patent and antegrade vertebrals bilaterally. Ordering Physician: Leonardo Palmer Referring Physician: Jn Worthington Performed By: Guille Pacheco RVT
--- NOTE | 2022-09-08 20:03 | ECHOD_ITS ---
Version 2 Reason For Study: TIA/CVA Procedure This was a 2D Doppler, Color Flow transthoracic echocardiogram. Exam performed portable in patient room. Left Ventricle Normal LV size. Moderate concentric left ventricular hypertrophy. Left ventricular systolic function is normal. The estimated ejection fraction is 55 %. Stage 1 diastolic dysfunction. No regional wall motion abnormalities noted. Right Ventricle Normal RV size. Normal systolic function. Atria Normal left atrium. Normal right atrium. Mitral Valve Normal mitral valve. There is mild to moderate mitral annular calcification. Tricuspid Valve Normal tricuspid valve. Mild (1+) tricuspid valve insufficiency. Pulmonary artery systolic pressure is 28 mmHg. Aortic Valve Trisinus/trileaflet aortic valve. Moderate focal aortic valve calcification. Great Vessels Normal aortic root. The pulmonary artery is normal size. Pericardium/Pleural No pericardial effusion. MMode/2D Measurements & Calculations LVIDd: 4.2 cm IVSd: 1.4 cm LVOT diam: 2.0 cm LVIDs: 3.3 cm LVPWd: 1.4 cm LVOT area: 3.1 cm2 RVDd: 3.2 cm FS: 22.9 % Ao root diam: 3.1 cm LAV(MOD-bp): 34.9 ml LVAd ap4: 32.7 cm2 LAV(MOD-bp) Indexed: 19.4 ml/m2 LVLd ap4: 8.2 cm LAV(MOD-sp2): 36.0 ml EDV(MOD-sp4): 107.6 ml LAV(MOD-sp4): 34.2 ml EDV(sp4-el): 110.6 ml LVAs ap4: 23.0 cm2 LVLs ap4: 7.3 cm ESV(MOD-sp4): 62.9 ml ESV(sp4-el): 61.5 ml EF(MOD-sp4): 41.5 % EF(sp4-el): 44.5 % SV(MOD-sp4): 44.7 ml SV(sp4-el): 49.2 ml LA A4 area: 14.2 cm2 LA dimension(2D): 3.8 cm RA A4 area: 13.8 cm2 TAPSE: 2.0 cm Time Measurements MV dec time: 0.35 sec Doppler Measurements & Calculations MV E max anthony: 79.8 cm/sec Lat Peak E' Anthony: 8.8 cm/sec Med Peak E' Anthony: 3.8 cm/sec MV A max anthony: 111.6 cm/sec E/E' lat: 9.1 E/E' med: 20.9 MV E/A: 0.72 Ao V2 max: 175.4 cm/sec LV V1 max: 86.0 cm/sec SV(LVOT): 62.7 ml Ao max P.3 mmHg LV V1 max P.0 mmHg Ao V2 mean: 122.1 cm/sec LV V1 mean P.6 mmHg Ao mean P.7 mmHg LV V1 mean: 59.1 cm/sec Ao V2 VTI: 41.9 cm LV V1 VTI: 20.1 cm AV (velocity ratio): 0.48 RADHA(I,D): 1.5 cm2 RADHA(V,D): 1.5 cm2 PA V2 max: 87.7 cm/sec TR max anthony: 243.9 cm/sec TR max P.8 mmHg ECHO/Echo Complete Interpretation Summary Normal LV size. Left ventricular systolic function is normal. The estimated ejection fraction is 55 %. Stage 1 diastolic dysfunction. Moderate concentric left ventricular hypertrophy. Pulmonary artery systolic pressure is 28 mmHg. Ordering Physician: Leonardo Palmer Referring Physician: YAMILE DANIELSON Performed By: Dora Mcdonald RDCS
[2022-09-08] MEDS: 0.9% Normal Saline 1,000 ML 100 ML IV (21:30)
[2022-09-08] MEDS: Doxazosin 4 MG Tablet 2 MG PO (21:31)
[2022-09-08] MEDS: Carvedilol 25 MG Tablet PO (21:31)
[2022-09-08] MEDS: DULoxetine Hcl 30 MG Capsule PO (21:31)
[2022-09-08] MEDS: Atorvastatin Calcium 80 MG Tablet PO (21:32)
[2022-09-08] MEDS: SACUBITRIL/VALSARTAN 49-51 MG TABLET 1 EACH PO (21:32)
[2022-09-08] MEDS: Famotidine 20 MG Tablet PO (21:32)
[2022-09-09] VITALS (15 sets, daily range): BP systolic 123–218; BP diastolic 82–150; PULSE 52–66; RESP 16–18; TEMP 36.1–37.1; O2SAT 96–100; BMI 26.5
[2022-09-09 06:30] LABS: Absolute Neutrophil Count 6.4 X10^3/uL (2.0-7.7); Basophil# 0.03 X10^3/uL; Basophil% 0.4 % (0-1); Eosinophil# 0.01 X10^3/uL; Eosinophils% 0.1 % (0-5); Hematocrit 45.6 % (40-54); Lymphocyte % 14.1 % (19-41); Mean Corp Hgb Conc 32.9 g/dL (32-36); Mean Corpuscular Hgb 28.7 pg (27.0-32.0); Mean Corpuscular Volume 87.2 fL (80-94); Mean Platelet Vol. 10.5 fl (6.2-12.0); Monocyte# 0.82 X10^3/uL; Monocyte% 9.6 % (0-10); NRBC Flagged by Analyzer 0 % (0-5); Neutrophil # 6.43 X10^3/uL (2.7-7.7); Neutrophil % 75.4 % (47-70); Platelet Count 242 K/mm3 (150-450); RBC Distribution Width CV 13.2 % (11.6-14.6); RBC Distribution Width SD 42.2 fl (35.1-43.9); Red Blood Count 5.23 M/mm3 (4.6-6.2); White Blood Count 8.5 K/mm3 (4.4-11.0)
[2022-09-09 06:55] LABS: Anion Gap 5 (5-15); BUN 10 mg/dL (7-18); BUN/Creat Ratio 6.8 RATIO (10-20); Calcium,Total 8.5 mg/dL (8.5-10.1); Chloride 107 mmol/L (98-107); Cholesterol 189 mg/dL (200); Creatinine, Serum 1.46 mg/dL (0.70-1.30); EST Glomerular Filtration Rate 52 mL/min (>60); Est Glom Filt Rate - Afr Amer 62 mL/min (>60); Estimated Creatinine Clearance 43.88 ml/min; Glucose 119 mg/dL (74-106); High Density Lipoprotein 33 mg/dL; Magnesium 2.3 mg/dL (1.6-2.6); Phosphorus 2.8 mg/dL (2.5-4.9); Potassium 3.6 mmol/L (3.5-5.1); Sodium Level 136 mmol/L (136-145); Triglycerides 197 mg/dL; Very Low Density Lipoprotein 39 mg/dL (5-40)
--- NOTE | 2022-09-09 08:28 | PN.HOSP_ITS ---
Reason for Visit Reason for Visit: Diagnoses Cerebral infarction, unspecified (09/08/22) Subjective Subjective Patient is a 67-year-old gentleman presenting with progressive generalized weakness dizziness and fatigue. CT of the chest obtained on admission did show findings suggestive of subacute ischemic change involving the posterior aspect of the right parietal lobe and occipital lobe admitted to monitored bed for subsequent management Objective Data Objective Data Vital Signs: Vital Signs Temp Pulse Resp BP Pulse Ox O2 Del Method 97 F L 58 L 16 174/103 H 96 Room Air 09/09/22 05:02 09/09/22 05:02 09/09/22 05:02 09/09/22 05:02 09/09/22 08:05 09/09/22 08:05 Oxygen Delivery Method Room Air Weight: 72.3 kg Body Mass Index (BMI) 26.5 Intake & Output: Intake and Output for Last 24 Hours 09/07/22 09/08/22 09/09/22 23:59 23:59 23:59 Intake Total 400 / 400 300 / 300 Balance 400 / 400 300 / 300 Lab / Micro Data 09/09/22 06:01 09/09/22 06:01 Labs: Laboratory Results - last 24 hr 09/08/22 15:10: WBC 7.1, RBC 5.24, Hgb 15.3, Hct 45.4, MCV 86.6, MCH 29.2, MCHC 33.7, RDW Std Deviation 42.1, RDW Coeff of [place] 13.4, Plt Count 257, MPV 10.1, Immature Gran % (Auto) 0.100, Neut % (Auto) 74.4 H, Lymph % (Auto) 16.0 L, [place] % (Auto) 9.1, Eos % (Auto) 0.1, Baso % (Auto) 0.3, Absolute Neuts (auto) 5.3, Absolute Lymphs (auto) 1.13, Nucleated RBC % 0, Sodium 136, Potassium 3.9, Chloride 103, Carbon Dioxide 25.0, Anion Gap 8, BUN 11, Creatinine 1.55 H, Estim Creat Clear Calc 42.88, Est GFR (MDRD) Af Amer 58 L, Est GFR (MDRD) Non-Af 48 L, BUN/Creatinine Ratio 7.1 L, Glucose 101, Calcium 8.9 09/08/22 16:57: Urine Color Yellow, Urine Clarity Clear, Urine pH 6.5, Ur Specific [place] 1.010, Urine Protein 15 H, Urine Glucose (UA) Normal, Urine Ketones Negative, Urine Occult Blood 150 H, Urine Nitrite Negative, Urine Bilirubin Negative, Urine Urobilinogen Normal, Ur Leukocyte Esterase 25 H, Urine RBC 5-10 SEEN, Urine WBC 0-5 SEEN, Ur Squamous Epith Cells 0 SEEN, Urine Bacteria RARE, Urine Mucus 0 SEEN 09/09/22 06:01: WBC 8.5, RBC 5.23, Hgb 15.0, Hct 45.6, MCV 87.2, MCH 28.7, MCHC 32.9, RDW Std Deviation 42.2, RDW Coeff of [place] 13.2, Plt Count 242, MPV 10.5, Immature Gran % (Auto) 0.400, Neut % (Auto) 75.4 H, Lymph % (Auto) 14.1 L, [place] % (Auto) 9.6, Eos % (Auto) 0.1, Baso % (Auto) 0.4, Absolute Neuts (auto) 6.4, Absolute Lymphs (auto) 1.20, Nucleated RBC % 0, Sodium 136, Potassium 3.6, Chloride 107, Carbon Dioxide 24.0, Anion Gap 5, BUN 10, Creatinine 1.46 H, Estim Creat Clear Calc 43.88, Est GFR (MDRD) Af Amer 62, Est GFR (MDRD) Non-Af 52 L, BUN/Creatinine Ratio 6.8 L, Glucose 119 H, Calcium 8.5, Phosphorus 2.8, Magnesium 2.3, Triglycerides 197, Cholesterol 189, LDL Cholesterol 117, VLDL Cholesterol 39, HDL Cholesterol 33 L Radiography Diagnostic Testing: Radiology Impression Brain CT 09/08/22 15:28 IMPRESSION: Chronic involutional changes of the brain. Findings suggestive of subacute ischemic change involving the posterior aspect of the right parietal lobe and occipital lobe. Electronically Signed: Bob Clifton MD at 15:44 EDT , Chest X-Ray 09/08/22 15:33 IMPRESSION: Hyperinflation. No acute abnormality is seen. Electronically Signed: Bob Clifton MD at 15:45 EDT , Physical Exam Narrative GENERAL: cooperative HEENT: Atraumatic; normocephalic EYES; Anicteric, Normal Conjunctiva NECK; supple, normal thyroid, RESPIRATORY: Diminished to auscultation CARDIOVASCULAR: Regular S1 S2, GI: soft, normoactive bowel sounds, : No Renal angle tenderness; EXTREMITIES: No edema, no clubbing, MUSCULOSKELETAL: no muscle wasting NEURO: Awake; no lateralizing signs. SKIN: No Rash PSYCH; Flat affect Assessment & Plan Assessment/Plan (1) CVA (cerebral vascular accident): QUALIFIERS: CVA mechanism: occlusion PLAN: Plan Patient is a 67-year-old gentleman presenting with progressive generalized weakness dizziness and fatigue 1. Subacute CVA ? CT of the chest obtained on admission did show findings suggestive of subacute ischemic change involving the posterior aspect of the right parietal lobe and occipital lobe. Patient admitted to monitored bed ordered neurochecks every 4 hours. Patient started on on top platelet therapy with aspirin and Plavix as well as high-dose statin therapy. Ordered 2D echo, MRI of the head as well as carotid duplex ? 09/09/2022; MRI obtained did show Subacute cortical gyral ischemic infarct in the right parietal lobe and smaller subacute cortical gyral ischemic infarcts in the adjacent cortices of the right superior frontal gyrus and right middle frontal gyrus.. Carotid duplex also demonstrated critical stenosis involving the right ICA. Consult placed to telemetry neurology as well as vascular surgeon Dr. Jerrod Coronado. ? 2. Coronary artery disease ? With previous CABG. 3. Ischemic cardiomyopathy ? Patient is on recommended medications include Entresto as well as beta- blockers 4. Dyslipidemia -Patient is on statin therapy, continued at home dose 5. Hypertension - Blood pressure controlled, home medications continued with dose adjustment as needed 6. Chronic kidney disease stage III ? Kidney function at baseline 7. DVT prophylaxis ? SC Lovenox dose adjusted for kidney function Time spent in the patient's overall evaluation,decision-making process, review of diagnostic data, adjustment of management, discussion with other providers, nursing nursing and ancillary staff involved in patient's care documentation, 50-minute Charges/Coding Visit Charges Inpatient E&M: [id number] [facility] L3
[2022-09-09] MEDS: Clopidogrel Bisulfate 75 MG Tablet PO (09:05)
[2022-09-09] MEDS: DULoxetine Hcl 30 MG Capsule PO ×2 (09:05→19:39)
[2022-09-09] MEDS: Cholecalciferol (VIT D3) 25 MCG TABLET (1,000 UNITS) 50 MCG PO (09:05)
[2022-09-09] MEDS: Aspirin 81 MG TAB.CHEW PO (09:05)
[2022-09-09] MEDS: Famotidine 20 MG Tablet PO ×2 (09:05→19:40)
[2022-09-09] MEDS: 0.9% Normal Saline 1,000 ML 100 ML IV (09:06)
[2022-09-09] MEDS: Enoxaparin 40 MG/0.4 ML Syringe SC (09:06)
--- NOTE | 2022-09-09 09:30 | MRI_ITS ---
We are attempting to reach an attending provider to discuss findings. An addendum with communication details will be sent when the communication is complete. EXAM: MR HEAD WITHOUT INTRAVENOUS CONTRAST CLINICAL INDICATION: CVA TECHNIQUE: Multiplanar and multisequence MR images of the brain were obtained without intravenous contrast. COMPARISON: CT head without contrast 09/08/2022. MRI brain without contrast 10/22/2018. FINDINGS: BRAIN AND EXTRA-AXIAL SPACES: Small curvilinear diffusion restrictions in the right parietal lobe and minimally in the adjacent cortices of the right superior frontal gyrus and right middle frontal gyrus. These are also visible on the T2 flair sequence and are consistent with subacute cortical gyral ischemic infarcts. Periventricular white matter T2 FLAIR hyperintensity foci in the cerebral hemispheres are chronic white matter ischemic changes. No intra- or extra-axial hemorrhage. No intracranial mass or mass effect. Posterior fossa structures are unremarkable. No hydrocephalus. Basal cisterns are patent. SELLA: Unremarkable. Normal sella turcica, pituitary gland, infundibular stalk, optic chiasm and hypothalamus. AUDITORY SYSTEM: Unremarkable. The internal auditory canals are patent. BONES/JOINTS: Unremarkable. No discrete lytic or blastic abnormalities. SINUSES: Unremarkable as visualized. Clear. MASTOID AIR CELLS: Mild mucosal edema of the left temporal mastoid bone. Normal right temporal mastoid bone. ORBITS: Unremarkable as visualized. Both globes, extraocular muscles, optic nerves and retrobulbar fat appear unremarkable. VASCULATURE: Unremarkable as visualized. Normal flow voids in the major intracranial circulation. MRI/Brain without Contrast IMPRESSION: 1. Subacute cortical gyral ischemic infarct in the right parietal lobe and smaller subacute cortical gyral ischemic infarcts in the adjacent cortices of the right superior frontal gyrus and right middle frontal gyrus. 2. Chronic periventricular white matter ischemic changes in the cerebral hemispheres are unchanged. Electronically Signed: Jatinder Powell MD at 10:57 EDT ,
--- NOTE | 2022-09-09 11:19 | CASEMGMT ---
SDOH was triggered in error. Génesis Soriano [employer]
--- NOTE | 2022-09-09 12:23 | CASEMGMT ---
Addendum entered by Mary Maddox 09/09/22 17:55: PT/OT evals reviewed. No additional therapy recommended. Vasc surgery c/s'd and Xarelto recommended. 30-day savings card provided to pt and instructed on use. Questions answered. Pt denies having other questions or d/c needs. Original Note: RN CM MAINTENANCE MILLWRIGHT CM to room to meet with patient for initial transition planning/care coordination assessment. RN CM introduced self and role at [facility]. Pt voices understanding and consents to assessment at this time. Pt sitting up in chair in room in no distress at this time. Pt is A/O at this time and answers all questions appropriately. Care providers, pharmacy, and demographics verified/updated at this time. PCP: Dr Worthington Specialists: Dr Mckeon-cardiology Preferred [facility]acy: [facility] Insurance: [place] MCR Prescription Benefit: Yes Living Will/HPOA: Has both LW and HCPOA, who is his , Harper. LNOK: . 2 Sons Living Arrangements: Lives with his . One son lives with them. They live in a 2-story home w/7 steps to enter. FFSU. Pt states he does well w/the stairs. Pt states he is independent. /pt share home mgnt tasks. Transportation: Pt states drives self and states no transportation concerns at this time. also drives. DME: Pt states he has a shower chair and walker that he uses on occasion/as needed. Denies need for other DME HHC/SNF: No history of either and denies needs for HHC or OP therapy. No needs identified at this time. PT/OT evals pending. Pt wishes to return home and states has no concerns with going home at time of discharge. CM to follow for any further discharge planning/needs. Pt voices no further concerns/needs at this time. Advised pt to ask for CM if any further questions/concerns/needs arise. Voices understanding. PLAN: Home w/spousal support and discharge plans in place. PT/OT evals pending. Follow for any recommendations. Alexia POPE RN, CM
--- NOTE | 2022-09-09 12:47 | CT_ITS ---
STUDY: CTA HEAD AND NECK WITH CONTRAST REASON FOR EXAM: Male, 67 years old. Carotid stenosis, s/p R CEA RADIATION DOSAGE (If Supplied By Facility): CTDIvol = ( 28.05 ) mGy, DLP = ( 1566.80 ) mGycm TECHNIQUE: CT angiography was performed with a multi-detector CT scanner. Data acquisition was obtained from the skull base through the vertex following intravenous administration of IV 100mL [id number]-370. MIP images were reconstructed from the axial data set. Post-processing of the angiographic images was performed, with multiplanar reformation and 3D reconstruction. Individualized dose optimization techniques were used for this CT. COMPARISON: Comparison is made with prior study dated June 08, 2020. Comparison is also made with prior CT scan of the brain dated September 08, 2022. FINDINGS: Normal bilateral petrous carotid arteries. There is calcified plaque formation of the right cavernous carotid artery, without a cross-sectional luminal stenosis. There is calcified plaque formation of the left cavernous carotid artery, without a cross-sectional luminal stenosis. Normal right A1 segments of the anterior cerebral artery. Normal left A1 segments of the anterior cerebral artery. Normal intact anterior communicating artery (ACOM). Normal bilateral A2 segments of the anterior cerebral arteries. Normal right M1 and M2 segments of the middle cerebral arteries, with a normal M1 bifurcation. Normal left M1 and M2 segments of the middle cerebral arteries, with a normal M1 bifurcation. Normal right posterior communicating artery (PCOM). Normal left posterior communicating artery (PCOM). Normal bilateral vertebral arteries. Normal basilar artery with a normal basilar bifurcation. The visualized bilateral superior cerebellar (SCA) arteries are normal. Normal bilateral P1, P2 and visualized P3 segments of the posterior cerebral arteries. There is no demonstrated aneurysm of the [place]. Mild degree of cerebral atrophy. Tiny old lacunar infarcts in both basal ganglia slightly more prominent on the left side. Stable appearance of the decreased attenuation in the posterior aspect of the right parietal lobe and occipital lobe. AORTIC ARCH: There is atherosclerotic calcific plaque formation of the aortic arch and great vessels arising from the aortic arch, without a hemodynamically significant stenosis. There is a normal origin of the brachiocephalic, left common carotid, and left subclavian arteries. Prior CABG. RIGHT CAROTID ARTERIES: Normal right common carotid artery (CCA). Normal right common carotid bulb. The patient is status post carotid endarterectomy. There now is evidence of a tight stenosis in the proximal portion of the right internal carotid artery as well at the level of its origin. Questionable ulcerated plaque in the proximal portion of the right internal carotid artery. Normal visualized cervical portion of the right internal carotid artery. Normal origin of the right external carotid artery (ECA). LEFT CAROTID ARTERIES: Normal left common carotid artery (CCA). Normal left common carotid bulb. I suspect prior left carotid endarterectomy as well. Mild degree of lumbar stenosis. Normal visualized cervical portion of the left internal carotid artery. Normal origin of the left external carotid artery (ECA). VERTEBRAL ARTERIES: Normal bilateral vertebral arteries. CT/CTA Head AND Neck W/ Contrast IMPRESSION: Status post right carotid endarterectomy with a tight stenosis at the origin and proximal portion of the right internal carotid artery and possible ulcerated plaque. Findings suggestive of status post left carotid endarterectomy with mild degree of stenosis at its origin. Electronically Signed: Bob Clifton MD at 14:15 EDT ,
--- NOTE | 2022-09-09 12:50 | CASEMGMT ---
Social Work SW initially spoke w/ in room, as pt in restroom. SW explained will come back to speak w/pt, and to complete a PHQ-9. states she is concerned that pt is depressed. SW explained will come back and ask her to step out to complete the assessment. SW returned, completed PHQ-9. Pt scored a 6. Pt states does not feel depressed, and the questions he answered as a 1 or 2(losing pleasure or interest in doing things, sleeping too much, having little energy, poor appetite) he attributes to symptoms due to the stroke. SW mentioned to pt that SW saw depression was listed in his diagnoses. Pt states he is not depressed. He declined any referrals for mental health, not interested in counseling at this time. SW spoke w/the in the waiting room. SW did give her the list of counseling agencies in the area should pt ever be interested or if she would need any support. No further needs anticipated at this time. JENNIFER Laird
--- NOTE | 2022-09-09 15:20 | EX.PCM.CON.S ---
Assessment & Plan Assessment/Plan (1) CVA (cerebrovascular accident): (2) History of right-sided carotid endarterectomy: (3) Carotid artery aneurysm: PLAN: Plan CTA Head and Neck reveal bilateral carotid artery aneurysms. Will need surgical intervention which can be completed on an outpatient basis, ideally in short interval, so will try to obtain vein mapping for operative planning while inpatient, if possible. Recommend discharging with Xarelto in addition to Plavix for anticoagulation. Will continue to follow while he is inpatient. If discharged over the weekend, will have him follow-up in the office as an outpatient next week. HPI Consult Data Date of Consult: 09/09/22 HPI Narrative HPI Narrative: ДМИТРИЙ BOJORQUEZ, is a 67 M who presented to the [facility] ER with a several weeks long history of increasing fatigue and confusion. On presentation, he was also noted to be hypertensive to systolic 190s-200s. CT revealed R-sided subacute ischemic changes so he was admitted for continued stroke work-up. MRI Brain confirmed subacute infarct in the R parietal and frontal lobes. Carotid duplex revealed R ICA stenosis with PSV 240.2/EDV 75.3. He was initiated on DAPT. His was present at time of exam and helped to supplement history. While his fatigue is a chronic issues she feels it has been worse over the last 6 months along with overall depressive symptoms, but they are more concerned about general confusion/mental fog that seems to have started more recently over the last few weeks. He has R-sided facial paresthesias which are residual from prior stroke. He denies any new/worsening sensory deficits, focal motor weakness, vision changes, facial drooping, dysarthria, SOB, CP, TSANG, palpitations, lightheadedness/dizziness. He has a history significant for R-sided CVA s/p right CEA in 2010, CAD s/p CABG (2013), HTN, HLD, CKD, depression. Denies history of DVT/PE, COPD/asthma, diabetes. He quit smoking several years ago. Aspirin is listed on his home medications, but he has not been taking it for a while. He was on Plavix around the time of his CABG, but not currently prescribed. He thinks his CEA was done at [facility], but the surgeon several years ago and he has not had follow-up since. [facility] Medical History Atherosclerosis of coronary artery of hug[place] heart without angina pectoris Blood glucose elevated BPH (benign prostatic hyperplasia) CKD (chronic kidney disease) CVA (cerebral vascular accident) Depression Dizziness Elevated PSA, less than 10 ng/ml Erectile dysfunction Essential (primary) hypertension Facial paresthesia Facial paresthesia Fatigue Hematuria History of myocardial infarction HLD (hyperlipidemia) Ischemic cardiomyopathy Left ventricular diastolic dysfunction Malaise and fatigue Nonrheumatic mitral (valve) insufficiency Normal colonoscopy Secondary pulmonary arterial hypertension Stenosis of right carotid artery Tobacco user Home Medications aspirin 81 mg chewable tablet 81 mg PO DAILY@0800 asparin 10/23/18 [Rx Last Taken 09/07/22] cholecalciferol (vitamin D3) 50 mcg (2,000 unit) capsule 50 mcg PO DAILY vitamin 10/08/19 [History Last Taken Unknown] amlodipine 10 mg tablet 10 mg PO DAILY HTN #90 tabs 03/11/21 [Rx Last Taken 09/07/22] duloxetine 30 mg capsule,delayed release 30 mg PO BID depression #180 caps 08/04/21 [Rx Last Taken 09/07/22] doxazosin 4 mg tablet 2 mg PO QHS urinary retention 03/15/22 [History Last Taken 09/07/22] carvedilol 25 mg tablet 25 mg PO BID HTN #180 tabs 05/16/22 [Rx Last Taken 09/07/22] pravastatin 80 mg tablet 80 mg PO QHS statin #30 tabs 07/01/22 [Rx Last Taken 09/07/22] sacubitril 49 mg-valsartan 51 mg tablet (Entresto) 1 tab PO BID cardiac #60 tabs 08/26/22 [Rx Last Taken 09/07/22] Allergy/AdvReac Type Severity Reaction Status Date / Time codeine AdvReac Upset Verified 09/08/22 13:57 Stomach Family History Father Heart disease Alcoholism Brother Alcoholism Grandfather Heart disease Surgical History (Updated 09/09/22 @ 16:35 by GINI Ramirez) H/O coronary artery bypass surgery (2013) History of colonoscopy History of left heart catheterization (10/22/18) History of prostate biopsy History of right-sided carotid endarterectomy (2010) Social History (Updated 09/08/22 @ 18:54 by Génesis Torres) housing: house Smoking Status: Former smoker Tobacco: How many years used: 35 alcohol intake: never substance use type: does not use what type of physical activity do you participate in: walking frequency: daily Physical Exam Const alert, oriented x3 and no apparent distress General Appearance: cooperative and comfortable HEENT normocephalic, head/scalp atraumatic, hearing grossly normal bilaterally, external ears normal and external nose normal Eyes EOMs intact bilaterally General Eye: normal appearance of both eyes Neck General: normal visual inspection Carotids: Negative for bruit Resp normal respiratory effort Effort and Inspection: able to speak in complete sentences; Negative for labored, stridor, retractions, uses accessory muscles or audible wheezes Auscultation: clear to auscultation bilaterally and diminished lung sounds Cardio regular rate and regular rhythm Peripheral Pulses: radial pulses present left diminished Extremity no clubbing, cyanosis or edema Skin no rashes or lesions noted and no wounds Trauma: no lacerations or abrasions Neuro oriented x3, moves all extremities and no focal motor deficits Speech: speech normal Psych cooperative and speech normal Appearance: grossly normal Attitude: calm Mood & Affect: flat affect Lab / Micro Data 09/09/22 06:01 09/09/22 06:01 Labs: Laboratory Results - last 24 hr 09/08/22 15:10: WBC 7.1, RBC 5.24, Hgb 15.3, Hct 45.4, MCV 86.6, MCH 29.2, MCHC 33.7, RDW Std Deviation 42.1, RDW Coeff of [place] 13.4, Plt Count 257, MPV 10.1, Immature Gran % (Auto) 0.100, Neut % (Auto) 74.4 H, Lymph % (Auto) 16.0 L, Coles % (Auto) 9.1, Eos % (Auto) 0.1, Baso % (Auto) 0.3, Absolute Neuts (auto) 5.3, Absolute Lymphs (auto) 1.13, Nucleated RBC % 0, Sodium 136, Potassium 3.9, Chloride 103, Carbon Dioxide 25.0, Anion Gap 8, BUN 11, Creatinine 1.55 H, Estim Creat Clear Calc 42.88, Est GFR (MDRD) Af Amer 58 L, Est GFR (MDRD) Non-Af 48 L, BUN/Creatinine Ratio 7.1 L, Glucose 101, Calcium 8.9 09/08/22 16:57: Urine Color Yellow, Urine Clarity Clear, Urine pH 6.5, Ur Specific [place] 1.010, Urine Protein 15 H, Urine Glucose (UA) Normal, Urine Ketones Negative, Urine Occult Blood 150 H, Urine Nitrite Negative, Urine Bilirubin Negative, Urine Urobilinogen Normal, Ur Leukocyte Esterase 25 H, Urine RBC 5-10 SEEN, Urine WBC 0-5 SEEN, Ur Squamous Epith Cells 0 SEEN, Urine Bacteria RARE, Urine Mucus 0 SEEN 09/09/22 06:01: WBC 8.5, RBC 5.23, Hgb 15.0, Hct 45.6, MCV 87.2, MCH 28.7, MCHC 32.9, RDW Std Deviation 42.2, RDW Coeff of [place] 13.2, Plt Count 242, MPV 10.5, Immature Gran % (Auto) 0.400, Neut % (Auto) 75.4 H, Lymph % (Auto) 14.1 L, Coles % (Auto) 9.6, Eos % (Auto) 0.1, Baso % (Auto) 0.4, Absolute Neuts (auto) 6.4, Absolute Lymphs (auto) 1.20, Nucleated RBC % 0, Sodium 136, Potassium 3.6, Chloride 107, Carbon Dioxide 24.0, Anion Gap 5, BUN 10, Creatinine 1.46 H, Estim Creat Clear Calc 43.88, Est GFR (MDRD) Af Amer 62, Est GFR (MDRD) Non-Af 52 L, BUN/Creatinine Ratio 6.8 L, Glucose 119 H, Calcium 8.5, Phosphorus 2.8, Magnesium 2.3, Triglycerides 197, Cholesterol 189, LDL Cholesterol 117, VLDL Cholesterol 39, HDL Cholesterol 33 L Radiology Impression Brain CT 09/08/22 15:28 IMPRESSION: Chronic involutional changes of the brain. Findings suggestive of subacute ischemic change involving the posterior aspect of the right parietal lobe and occipital lobe. Electronically Signed: Bob Clifton MD at 15:44 EDT , Chest X-Ray 09/08/22 15:33 IMPRESSION: Hyperinflation. No acute abnormality is seen. Electronically Signed: Bob Clifton MD at 15:45 EDT , Echocardiogram 09/08/22 20:03 Interpretation Summary Normal LV size. Left ventricular systolic function is normal. The estimated ejection fraction is 55 %. Stage 1 diastolic dysfunction. Moderate concentric left ventricular hypertrophy. Pulmonary artery systolic pressure is 28 mmHg. Ordering Physician: Leonardo Palmer Referring Physician: YAMILE DANIELSON Performed By: Dora Mcdonald RDCS Brain MRI 09/09/22 09:30 IMPRESSION: 1. Subacute cortical gyral ischemic infarct in the right parietal lobe and smaller subacute cortical gyral ischemic infarcts in the adjacent cortices of the right superior frontal gyrus and right middle frontal gyrus. 2. Chronic periventricular white matter ischemic changes in the cerebral hemispheres are unchanged. Electronically Signed: Jatinder Powell MD at 10:57 EDT , ADDENDUM: 09/09/22 1118 IMPRESSION: 1. Subacute cortical gyral ischemic infarct in the right parietal lobe and smaller subacute cortical gyral ischemic infarcts in the adjacent cortices of the right superior frontal gyrus and right middle frontal gyrus. 2. Chronic periventricular white matter ischemic changes in the cerebral hemispheres are unchanged. N.B. : The above Results were Read Back by Jatinder Powell MD to Estela Patterson MD, and understanding confirmed on 09/09/2022 11:11:54 (ET). Electronically Signed: Jatinder Powell MD at 10:57 EDT , Head/Neck CTA 09/09/22 12:47 IMPRESSION: Status post right carotid endarterectomy with a tight stenosis at the origin and proximal portion of the right internal carotid artery and possible ulcerated plaque. Findings suggestive of status post left carotid endarterectomy with mild degree of stenosis at its origin. Electronically Signed: Bob Clifton MD at 14:15 EDT , Charges/Coding Visit Charges Inpatient E&M: 22265 Init Hosp L2
--- NOTE | 2022-09-09 15:26 | VDLE_ITS ---
Reason For Study: Preoperative, carotid artery aneurysm repair RIGHT LEFT GSV prox thigh, 0.39 x 0.39 cm. GSV above knee was previously harvested. GSV mid thigh, 0.26 x 0.26 cm. GSV prox calf, 0.21 x 0.20 cm. GSV dist thigh, 0.32 x 0.33 cm. GSV mid calf, 0.19 x 0.20 cm. GSV knee, 0.27 x 0.26 cm. GSV distal calf, 0.16 x 0.17 cm. GSV prox calf, 0.23 x 0.24 cm. ASV from groin, prox thigh, 0.19 x 0.20 cm. GSV mid calf, 0.23 x 0.23 cm. ASV from groin, mid thigh, 0.16 x 0.18 cm. GSV distal calf, 0.18 x 0.20 cm. SSV prox, 0.27 x 0.26 cm. ASV from groin, prox thigh, 0.26 x 0.25 cm. SSV mid, 0.11 x 0.12 cm. ASV from groin, mid thigh, 0.13 x 0.13 cm. SSV distal, 0.12 x 0.13 cm. SSV prox, 0.16 x 0.18 cm. SSV mid, 0.10 x 0.10 cm. SSV distal is partially compressible with SSV distal, 0.09 x 0.11 cm. bright intraluminal echoes consistent with Chronic SVT. GSV, SSV, ASV from groin is compressible. GSV, SSV, ASV from groin is compressible. Procedure This is a venous duplex using B-mode, color flow and spectral Doppler. Exam performed portable in patient room. VL/Saphenous Vein Mapping, Bilat Interpretation Summary Right great saphenous vein, accessory saphenous vein, small saphenous vein sanchez nt with measurements above. Left great saphenous vein, accessory saphenous vein patent with measurements ab ove Left small saphenous with chronic superficial thrombus present Ordering Physician: Gely Ivory Referring Physician: Jn Worthington Performed By: Rea Azul RVT
[2022-09-09] MEDS: SACUBITRIL/VALSARTAN 49-51 MG TABLET 1 EACH PO (19:39)
[2022-09-09] MEDS: Atorvastatin Calcium 80 MG Tablet PO (19:40)
[2022-09-09] MEDS: Carvedilol 25 MG Tablet PO (19:40)
[2022-09-09] MEDS: Doxazosin 4 MG Tablet 2 MG PO (19:41)
[2022-09-10] VITALS (8 sets, daily range): BP systolic 126–205; BP diastolic 80–108; PULSE 52–701; RESP 16–18; TEMP 36.5–36.7; O2SAT 97–99; BMI 26.5
--- NOTE | 2022-09-10 07:27 | PN.HOSP_ITS ---
Reason for Visit Reason for Visit: Diagnoses Cerebral infarction, unspecified (09/08/22) Subjective Subjective ? CT angio of the head and neck obtained did demonstrate status post right carotid endarterectomy with a tight stenosis at the origin and proximal portion of the right internal carotid artery and possible ulcerated plaque. Findings suggestive of status post left carotid endarterectomy with mild degree of stenosis at its origin.. Case discussed with vascular surgery patient will be discharged on antiplatelet therapy in addition to systemic anticoagulation with plans for patient to follow-up as outpatient for intervention Objective Data Objective Data Vital Signs: Vital Signs Temp Pulse Resp BP Pulse Ox O2 Del Method 98.1 F 52 L 16 160/80 H 99 Room Air 09/10/22 04:02 09/10/22 06:34 09/10/22 04:02 09/10/22 04:02 09/10/22 04:02 09/10/22 04:02 Oxygen Delivery Method Room Air Weight: 72.3 kg Body Mass Index (BMI) 26.5 Intake & Output: Intake and Output for Last 24 Hours 09/08/22 09/09/22 09/10/22 23:59 23:59 23:59 Intake Total 400 / 400 2580 / 2580 200 / 200 Output Total 550 / 550 Balance 400 / 400 2030 / 2030 200 / 200 Lab / Micro Data 09/10/22 07:31 09/10/22 07:31 Radiography Diagnostic Testing: Radiology Impression Echocardiogram 09/08/22 20:03 Interpretation Summary Normal LV size. Left ventricular systolic function is normal. The estimated ejection fraction is 55 %. Stage 1 diastolic dysfunction. Moderate concentric left ventricular hypertrophy. Pulmonary artery systolic pressure is 28 mmHg. Ordering Physician: Leonardo Palmer Referring Physician: YAMILE DANIELSON Performed By: Dora Mcdonald RDCS Brain MRI 09/09/22 09:30 IMPRESSION: 1. Subacute cortical gyral ischemic infarct in the right parietal lobe and smaller subacute cortical gyral ischemic infarcts in the adjacent cortices of the right superior frontal gyrus and right middle frontal gyrus. 2. Chronic periventricular white matter ischemic changes in the cerebral hemispheres are unchanged. Electronically Signed: Jatinder Powell MD at 10:57 EDT , ADDENDUM: 09/09/22 1118 IMPRESSION: 1. Subacute cortical gyral ischemic infarct in the right parietal lobe and smaller subacute cortical gyral ischemic infarcts in the adjacent cortices of the right superior frontal gyrus and right middle frontal gyrus. 2. Chronic periventricular white matter ischemic changes in the cerebral hemispheres are unchanged. N.B. : The above Results were Read Back by Jatinder Powell MD to Estela Patterson MD, and understanding confirmed on 09/09/2022 11:11:54 (ET). Electronically Signed: Jatinder Powell MD at 10:57 EDT , Head/Neck CTA 09/09/22 12:47 IMPRESSION: Status post right carotid endarterectomy with a tight stenosis at the origin and proximal portion of the right internal carotid artery and possible ulcerated plaque. Findings suggestive of status post left carotid endarterectomy with mild degree of stenosis at its origin. Electronically Signed: Bob Clifton MD at 14:15 EDT , Physical Exam Narrative GENERAL: cooperative HEENT: Atraumatic; normocephalic EYES; Anicteric, Normal Conjunctiva NECK; supple, normal thyroid, RESPIRATORY: Diminished to auscultation CARDIOVASCULAR: Regular S1 S2, GI: soft, normoactive bowel sounds, : No Renal angle tenderness; EXTREMITIES: No edema, no clubbing, MUSCULOSKELETAL: no muscle wasting NEURO: Awake; residual right-sided weak SKIN: No Rash PSYCH; Flat affect Assessment & Plan Assessment/Plan (1) CVA (cerebral vascular accident): QUALIFIERS: CVA mechanism: occlusion PLAN: Plan Patient is a 67-year-old gentleman presenting with progressive generalized weakness dizziness and fatigue 1. Subacute CVA ? CT of the chest obtained on admission did show findings suggestive of subacute ischemic change involving the posterior aspect of the right parietal lobe and occipital lobe. Patient admitted to monitored bed ordered neurochecks every 4 hours. Patient started on on top platelet therapy with aspirin and Plavix as well as high-dose statin therapy. Ordered 2D echo, MRI of the head as well as carotid duplex ? 09/09/2022; MRI obtained did show Subacute cortical gyral ischemic infarct in the right parietal lobe and smaller subacute cortical gyral ischemic infarcts in the adjacent cortices of the right superior frontal gyrus and right middle frontal gyrus.. Carotid duplex also demonstrated critical stenosis involving the right ICA. Consult placed to telemetry neurology as well as vascular s urgeon Dr. Jerrod Coronado. ? 09/10/2022 CT angio of the head and neck obtained did demonstrate status post right carotid endarterectomy with a tight stenosis at the origin and proximal portion of the right internal carotid artery and possible ulcerated plaque. Findings suggestive of status post left carotid endarterectomy with mild degree of stenosis at its origin.. Case discussed with vascular surgery patient will be discharged on antiplatelet therapy in addition to systemic anticoagulation with plans for patient to follow-up as outpatient for intervention 2. History of previous CVA ? With residual right right upper extremity weakness 3. Carotid artery disease ? With previous right carotid endarterectomy ? 09/10/2022; CT angio of the head and neck obtained did demonstrate status post right carotid endarterectomy with a tight stenosis at the origin and proximal portion of the right internal carotid artery and possible ulcerated plaque. Findings suggestive of status post left carotid endarterectomy with mild degree of stenosis at its origin.. Case discussed with vascular surgery patient will be discharged on antiplatelet therapy in addition to systemic anticoagulation with plans for patient to follow-up as outpatient for intervention 4. Coronary artery disease ? With previous CABG. 5. Ischemic cardiomyopathy ? Patient is on recommended medications include Entresto as well as beta- blockers 6. Dyslipidemia -Patient is on statin therapy, continued at home dose 7. Hypertension - Blood pressure controlled, home medications continued with dose adjustment as needed 8. Chronic kidney disease stage III ? Kidney function at baseline 9. DVT prophylaxis ? SC Lovenox dose adjusted for kidney function Time spent in the patient's overall evaluation,decision-making process, review of diagnostic data, adjustment of management, discussion with other providers, nursing nursing and ancillary staff involved in patient's care documentation, 35-minute Charges/Coding Visit Charges Inpatient E&M: 02229 Subs Hosp L2
[2022-09-10 07:52] LABS: Absolute Lymphocyte Count 1.31 X10^3/uL (0.83-4.51); Absolute Neutrophil Count 4.7 X10^3/uL (2.0-7.7); Basophil# 0.02 X10^3/uL; Basophil% 0.3 % (0-1); Eosinophil# 0.22 X10^3/uL; Eosinophils% 3.2 % (0-5); Hematocrit 46.9 % (40-54); Hemoglobin 15.9 g/dL (13.0-16.5); Lymphocyte # 1.31 X10^3/ul (0.83-4.51); Lymphocyte % 18.8 % (19-41); Mean Corp Hgb Conc 33.9 g/dL (32-36); Mean Corpuscular Hgb 29.2 pg (27.0-32.0); Mean Corpuscular Volume 86.1 fL (80-94); Mean Platelet Vol. 10.3 fl (6.2-12.0); Monocyte# 0.75 X10^3/uL; Monocyte% 10.8 % (0-10); NRBC Flagged by Analyzer 0 % (0-5); Neutrophil # 4.66 X10^3/uL (2.7-7.7); Neutrophil % 66.8 % (47-70); Platelet Count 221 K/mm3 (150-450); RBC Distribution Width CV 13.2 % (11.6-14.6); RBC Distribution Width SD 41.5 fl (35.1-43.9); Red Blood Count 5.45 M/mm3 (4.6-6.2)
[2022-09-10] MEDS: amLODIPine 10 MG Tablet PO (08:20)
[2022-09-10] MEDS: SACUBITRIL/VALSARTAN 49-51 MG TABLET 1 EACH PO (08:20)
[2022-09-10] MEDS: Famotidine 20 MG Tablet PO (08:20)
[2022-09-10] MEDS: DULoxetine Hcl 30 MG Capsule PO (08:20)
[2022-09-10] MEDS: Aspirin 81 MG TAB.CHEW PO (08:20)
[2022-09-10] MEDS: Cholecalciferol (VIT D3) 25 MCG TABLET (1,000 UNITS) 50 MCG PO (08:20)
[2022-09-10] MEDS: Enoxaparin 40 MG/0.4 ML Syringe SC (08:21)
[2022-09-10] MEDS: Carvedilol 25 MG Tablet PO (08:21)
[2022-09-10] MEDS: Clopidogrel Bisulfate 75 MG Tablet PO (08:21)
[2022-09-10 08:28] LABS: Anion Gap 5 (5-15); BUN 12 mg/dL (7-18); Calcium,Total 8.7 mg/dL (8.5-10.1); Chloride 107 mmol/L (98-107); Creatinine, Serum 1.34 mg/dL (0.70-1.30); EST Glomerular Filtration Rate 57 mL/min (>60); Est Glom Filt Rate - Afr Amer 69 mL/min (>60); Estimated Creatinine Clearance 47.81 ml/min; Glucose 102 mg/dL (74-106); Potassium 3.7 mmol/L (3.5-5.1); Sodium Level 136 mmol/L (136-145)
--- NOTE | 2022-09-10 08:55 | PCM.DC.SUM ---
Providers Date of Admission: 09/08/22 Date of Discharge: 09/10/22 Primary Care Physician: Dr. Yamile Danielson MD Consultations 09/09/22 11:54 Consult: Vascular Surgery Routine Consulting Provider: Jerrod Coronado Reason for Consult: Right ICA stenosis EMERGENT Consult: No MD Notified: Yes Date Notified: 09/09/22 Time Notified: 11:54 Method of Notification: Text Reason For Visit: ACUTE CVA Diagnosis Discharge Diagnosis (1) CVA (cerebral vascular accident): Status: Chronic Code(s): I63.9 - Cerebral infarction, unspecified Qualifiers: CVA mechanism: occlusion Plan Patient is a 67-year-old gentleman presenting with progressive generalized weakness dizziness and fatigue 1. Subacute CVA ? CT of the chest obtained on admission did show findings suggestive of subacute ischemic change involving the posterior aspect of the right parietal lobe and occipital lobe. Patient admitted to monitored bed ordered neurochecks every 4 hours. Patient started on on top platelet therapy with aspirin and Plavix as well as high-dose statin therapy. Ordered 2D echo, MRI of the head as well as carotid duplex ? 09/09/2022; MRI obtained did show Subacute cortical gyral ischemic infarct in the right parietal lobe and smaller subacute cortical gyral ischemic infarcts in the adjacent cortices of the right superior frontal gyrus and right middle frontal gyrus.. Carotid duplex also demonstrated critical stenosis involving the right ICA. Consult placed to telemetry neurology as well as vascular surgeon Dr. Jerrod Coronado. ? 09/10/2022 CT angio of the head and neck obtained did demonstrate status post right carotid endarterectomy with a tight stenosis at the origin and proximal portion of the right internal carotid artery and possible ulcerated plaque. Findings suggestive of status post left carotid endarterectomy with mild degree of stenosis at its origin.. Case discussed with vascular surgery patient will be discharged on antiplatelet therapy in addition to systemic anticoagulation with plans for patient to follow-up as outpatient for intervention 2. History of previous CVA ? With residual right right upper extremity weakness 3. Carotid artery disease ? With previous right carotid endarterectomy ? 09/10/2022; CT angio of the head and neck obtained did demonstrate status post right carotid endarterectomy with a tight stenosis at the origin and proximal portion of the right internal carotid artery and possible ulcerated plaque. Findings suggestive of status post left carotid endarterectomy with mild degree of stenosis at its origin.. Case discussed with vascular surgery patient will be discharged on antiplatelet therapy in addition to systemic anticoagulation with plans for patient to follow-up as outpatient for intervention 4. Coronary artery disease ? With previous CABG. 5. Ischemic cardiomyopathy ? Patient is on recommended medications include Entresto as well as beta-blockers 6. Dyslipidemia -Patient is on statin therapy, continued at home dose 7. Hypertension - Blood pressure controlled, home medications continued with dose adjustment as needed 8. Chronic kidney disease stage III ? Kidney function at baseline 9. DVT prophylaxis ? SC Lovenox dose adjusted for kidney function Time spent in the patient's overall evaluation,decision-making process, review of diagnostic data, adjustment of management, discussion with other providers, nursing nursing and ancillary staff involved in patient's care documentation, 35-minute Medications at Discharge Home Medications aspirin 81 mg chewable tablet 81 mg PO DAILY@0800 asparin 10/23/18 cholecalciferol (vitamin D3) 50 mcg (2,000 unit) capsule 50 mcg PO DAILY vitamin 10/08/19 amlodipine 10 mg tablet 10 mg PO DAILY HTN #90 tabs 03/11/21 duloxetine 30 mg capsule,delayed release 30 mg PO BID depression #180 caps 08/04/21 doxazosin 4 mg tablet 2 mg PO QHS urinary retention 03/15/22 carvedilol 25 mg tablet 25 mg PO BID HTN #180 tabs 05/16/22 sacubitril 49 mg-valsartan 51 mg tablet (Entresto) 1 tab PO BID cardiac #60 tabs 08/26/22 atorvastatin 80 mg tablet 80 mg PO QHS #30 tabs 09/10/22 clopidogrel 75 mg tablet 75 mg PO DAILY #30 tabs 09/10/22 rivaroxaban 20 mg tablet (Xarelto) 20 mg PO DAILY #30 tabs 09/10/22 Hospital Course Summary of Care Provided Minutes Spent on Discharge: 35 Physical Exam Narrative GENERAL: cooperative HEENT: Atraumatic; normocephalic EYES; Anicteric, Normal Conjunctiva NECK; supple, normal thyroid, RESPIRATORY: Diminished to auscultation CARDIOVASCULAR: Regular S1 S2, GI: soft, normoactive bowel sounds, : No Renal angle tenderness; EXTREMITIES: No edema, no clubbing, MUSCULOSKELETAL: no muscle wasting NEURO: Awake; residual right upper extremity weakness SKIN: No Rash PSYCH; Flat affect Weight / BMI Weight Weight: 72.3 kg Body Mass Index (BMI) 26.5 ABG / Lab / Microbiology Data 09/10/22 07:31 09/10/22 07:31 Laboratory: Laboratory Results - last 24 hr 09/10/22 07:31: WBC 7.0, RBC 5.45, Hgb 15.9, Hct 46.9, MCV 86.1, MCH 29.2, MCHC 33.9, RDW Std Deviation 41.5, RDW Coeff of [place] 13.2, Plt Count 221, MPV 10.3, Immature Gran % (Auto) 0.100, Neut % (Auto) 66.8, Lymph % (Auto) 18.8 L, [place] % (Auto) 10.8 H, Eos % (Auto) 3.2, Baso % (Auto) 0.3, Absolute Neuts (auto) 4.7, Absolute Lymphs (auto) 1.31, Nucleated RBC % 0, Sodium 136, Potassium 3.7, Chloride 107, Carbon Dioxide 24.0, Anion Gap 5, BUN 12, Creatinine 1.34 H, Estim Creat Clear Calc 47.81, Est GFR (MDRD) Af Amer 69, Est GFR (MDRD) Non-Af 57 L, BUN/Creatinine Ratio 9.0 L, Glucose 102, Calcium 8.7 Radiography Diagnostic Testing: Radiology Impression Echocardiogram 09/08/22 20:03 Interpretation Summary Normal LV size. Left ventricular systolic function is normal. The estimated ejection fraction is 55 %. Stage 1 diastolic dysfunction. Moderate concentric left ventricular hypertrophy. Pulmonary artery systolic pressure is 28 mmHg. Ordering Physician: Leonardo Palmer Referring Physician: YAMILE DANIELSON Performed By: Dora Mcdonald RDCS Brain MRI 09/09/22 09:30 IMPRESSION: 1. Subacute cortical gyral ischemic infarct in the right parietal lobe and smaller subacute cortical gyral ischemic infarcts in the adjacent cortices of the right superior frontal gyrus and right middle frontal gyrus. 2. Chronic periventricular white matter ischemic changes in the cerebral hemispheres are unchanged. Electronically Signed: Jatinder Powell MD at 10:57 EDT , ADDENDUM: 09/09/22 1118 IMPRESSION: 1. Subacute cortical gyral ischemic infarct in the right parietal lobe and smaller subacute cortical gyral ischemic infarcts in the adjacent cortices of the right superior frontal gyrus and right middle frontal gyrus. 2. Chronic periventricular white matter ischemic changes in the cerebral hemispheres are unchanged. N.B. : The above Results were Read Back by Jatinder Powell MD to Estela Patterson MD, and understanding confirmed on 09/09/2022 11:11:54 (ET). Electronically Signed: Jatinder Powell MD at 10:57 EDT , Head/Neck CTA 09/09/22 12:47 IMPRESSION: Status post right carotid endarterectomy with a tight stenosis at the origin and proximal portion of the right internal carotid artery and possible ulcerated plaque. Findings suggestive of status post left carotid endarterectomy with mild degree of stenosis at its origin. Electronically Signed: Bob Clifton MD at 14:15 EDT , D/C Instructions Discharge Diet: Low fat / Low cholesterol Discharge Activity: Return to Normal Activity Call your doctor if you observe: Fever of 101 or Higher, Shortness of breath, Fainting spells and Chest pain Meaningful Use Info Meaningful Use Diagnoses (Choose all that apply): Ischemic CVA CVA Therapy Assessed for PT,OT and/or ST?: Yes Ischemic Stroke Antithrombotic order at d/c?: Yes Dx of Atrial fib/flutter?: No Anticoagulant at discharge?: Yes Statins at discharge?: Yes Primary Dx Acute Ischemic CVA?: Yes IV thrombolytic ordered during stay?: No Reason IV thrombolytic not ordered: Treatment not Indicated Discharge Plan Admission Admit Date/Time: 09/08/22 17:45 Attending Provider: Leonardo Palmer Primary Care Provider: Yamile Danielson Consulting Providers: Jerrod Coronado Discharge Orders/Prescriptions Prescriptions: New atorvastatin 80 mg Tablet 80 mg PO QHS Qty: 30 0RF clopidogrel 75 mg Tablet 75 mg PO DAILY Qty: 30 0RF Xarelto 20 mg tablet 20 mg PO DAILY Qty: 30 0RF Rx Instructions: must administer with evening meal Continued cholecalciferol (vitamin D3) 50 mcg (2,000 unit) capsule 50 mcg PO DAILY amlodipine 10 mg tablet 10 mg PO DAILY Qty: 90 3RF duloxetine 30 mg capsule,delayed release(DR/EC) 30 mg PO BID Qty: 180 3RF doxazosin 4 mg tablet 2 mg PO QHS aspirin 81 MG tablet,chewable 81 mg PO DAILY@0800 0RF carvedilol 25 mg tablet 25 mg PO BID Qty: 180 3RF Rx Instructions: must administer with a meal/food Entresto 49-51 mg tablet 1 tab PO BID Qty: 60 11RF Discontinued pravastatin 80 mg tablet 80 mg PO QHS Qty: 30 11RF Referrals / Follow Up: Yamile Danielson MD [Primary Care Provider] - Within 1 Week Jerrod Coronado MD [Med Staff - Active Staff] - Within 1 Week Disposition Disposition (needs filled in before D/C Order can be placed): Home Health Service Charges/Coding Visit Charges Inpatient E&M: 85541 Disch Hosp >30min
[2022-09-10] MEDS: hydrALAZINE 20 MG/ML Vial IV (11:14)
[2022-09-10] MEDS: 0.9% Saline Lock 10 ML Syringe IV (11:14)
[2022-09-10] MEDS: hydroCHLOROthiazide 25 MG Tablet PO (11:15)
== END 2022-09-10 13:57 | disposition home health service (06) | DRG 66 ==
LOC: ED 17:53 → PCU 18:12
PROVIDERS: Physician Assistant; Admitting Provider Internal Medicine; Emergency Provider Emergency Medicine; PCP Internal Medicine; Visit Provider Internal Medicine
DX: I63.9 Cerebral infarction, unspecified (principal); E78.5 Hyperlipidemia, unspecified; N18.30 Chronic kidney disease, stage 3 unspecified; I77.9 Disorder of arteries and arterioles, unspecified; F32.A Depression, unspecified; I25.5 Ischemic cardiomyopathy; F68.8 Other specified disorders of adult personality and behavior; I25.10 Atherosclerotic heart disease of native coronary artery without angina pectoris; I12.9 Hypertensive chronic kidney disease with stage 1 through stage 4 chronic kidney disease, or unspecified chronic kidney disease; Z87.891 Personal history of nicotine dependence; Z86.73 Personal history of transient ischemic attack (TIA), and cerebral infarction without residual deficits; Z66 Do not resuscitate; Z79.82 Long term (current) use of aspirin
CPT/HCPCS: 36415; 70450; 70496; 70498; 70551; 71046; 80048; 80061; 81001; 83735; 84100; 85025; 93306; 93880; 93970; 94762; 97162; 97165; 97802; 99283; J7030; Q9967; A4216

== ENCOUNTER 2022-09-14 16:17 | Emergency (ER) | payer MEDICARE, SELFPAY ==
[2022-09-14 16:18] VITALS: BP 124/75; PULSE 60; RESP 19; TEMP 35.8; O2SAT 97; BMI 23.8
--- NOTE | 2022-09-14 17:02 | EKG12_ITS ---
Test Reason : Blood Pressure : / mmHG Vent. Rate : 054 BPM Atrial Rate : 054 BPM P-R Int : 158 ms QRS Dur : 094 ms QT Int : 508 ms P-R-T Axes : 048 -06 169 degrees QTc Int : 481 ms Sinus bradycardia Cannot rule out Inferior infarct , age undetermined ST & T wave abnormality, consider lateral ischemia Abnormal ECG Confirmed by NICOLE BURNS, CARROLL ([id number]), content editor VIJAY NOE ([id number]) on 09/16/2022 1:27:06 PM Referred By: KAYLIE Confirmed By:MARYLIN RIVERA MD
[2022-09-14] MEDS: 0.9% Normal Saline 1,000 ML 1000 ML IV (17:08)
--- NOTE | 2022-09-14 17:09 | CT_ITS ---
STUDY: CT BRAIN WITHOUT CONTRAST REASON FOR EXAM: Male, 67 years old. Recent stroke Individualized dose optimization techniques were used for this CT. TECHNIQUE: Transaxial CT imaging of the brain was performed without administration of intravenous contrast material. COMPARISON: 09.08.22 FINDINGS: There are calcifications around the carotid artery. These are noted in the cavernous carotid arteries. Normal calvarium. Normal soft tissues. Infarct of the right basal ganglia. There is mild cerebral atrophy with widening of the extra-axial spaces and ventricular dilatation. There are areas of decreased attenuation within the white matter tracts of the supratentorial brain, consistent with microvascular disease changes. Normal basal ganglia and thalami. Normal brainstem. There is mild cerebellar atrophy. There is no intracranial hemorrhage. There is an evolving late subacute ischemic infarction of the right occipital parietal lobe. Normal visualized paranasal sinuses. CT/Brain/Head without Contrast IMPRESSION: There are no acute findings. There is an evolving late subacute ischemic infarction of the right occipital parietal lobe. No hemorrhagic conversion. Electronically Signed: Wallace Teixeira MD at 17:45 EDT ,
[2022-09-14 17:11] VITALS: BP 135/74; BP 139/91; BP 140/79; PULSE 58; PULSE 59; PULSE 66
[2022-09-14 17:15] LABS: Absolute Lymphocyte Count 1.35 X10^3/uL (0.83-4.51); Absolute Neutrophil Count 5.7 X10^3/uL (2.0-7.7); Basophil# 0.03 X10^3/uL; Basophil% 0.4 % (0-1); Eosinophil# 0.01 X10^3/uL; Eosinophils% 0.1 % (0-5); Hemoglobin 15.1 g/dL (13.0-16.5); Lymphocyte # 1.35 X10^3/ul (0.83-4.51); Lymphocyte % 17.1 % (19-41); Mean Corp Hgb Conc 33.6 g/dL (32-36); Mean Corpuscular Hgb 28.8 pg (27.0-32.0); Mean Corpuscular Volume 85.7 fL (80-94); Mean Platelet Vol. 10.9 fl (6.2-12.0); Monocyte# 0.74 X10^3/uL; Monocyte% 9.4 % (0-10); NRBC Flagged by Analyzer 0 % (0-5); Neutrophil # 5.73 X10^3/uL (2.7-7.7); Neutrophil % 72.6 % (47-70); Platelet Count 243 K/mm3 (150-450); RBC Distribution Width CV 13.2 % (11.6-14.6); RBC Distribution Width SD 41.5 fl (35.1-43.9); Red Blood Count 5.25 M/mm3 (4.6-6.2); White Blood Count 7.9 K/mm3 (4.4-11.0)
[2022-09-14 17:27] LABS: Anion Gap 7 (5-15); BUN 25 mg/dL (7-18); BUN/Creat Ratio 11.6 RATIO (10-20); Calcium,Total 8.4 mg/dL (8.5-10.1); Chloride 102 mmol/L (98-107); Creatinine, Serum 2.15 mg/dL (0.70-1.30); EST Glomerular Filtration Rate 33 mL/min (>60); Est Glom Filt Rate - Afr Amer 40 mL/min (>60); Glucose 132 mg/dL (74-106); Potassium 3.5 mmol/L (3.5-5.1); Sodium Level 132 mmol/L (136-145)
[2022-09-14 18:53] VITALS: BP 134/90; PULSE 71; RESP 16; O2SAT 97
--- NOTE | 2022-09-14 19:00 | EX.ED.DYSGE1 ---
HPI History of Present Illness Chief Complaint: Syncope Narrative Narrative: Patient presents after near syncopal episode at home. Patient states he feels perfectly fine now. He was in the hospital recently for stroke. He came in the hospital his blood pressure was very high. His family states he was running 220s. But he sounds like he has not been too compliant with his medications. He has been taking his medicine since discharge. He is now on Plavix atorvastatin and Xarelto because of his stroke. He states he has not been doing much at home but has been feeling fine. His family states he generally stays in the chair. He has not been eating and drinking as much but he has no nausea and vomiting. He just states that he has not but there is no reason. He evidently was sitting on the porch for a while today. He got up to walk in but got dizzy. The family grabbed a hold of him and sat him down in a chair. He never fell or hurt himself. He did not pass completely out. EMS was called. They got blood pressures as low as 80 systolic. He is doing much better now and feels normal now. He has no new neurologic symptoms. He has no headache. No numbness or tingling. He is essentially is asymptomatic now. PFSH PFSH Medical History Atherosclerosis of coronary artery of [place] heart without angina pectoris Blood glucose elevated BPH (benign prostatic hyperplasia) CKD (chronic kidney disease) CVA (cerebral vascular accident) Depression Dizziness Elevated PSA, less than 10 ng/ml Erectile dysfunction Essential (primary) hypertension Facial paresthesia Facial paresthesia Fatigue Hematuria History of myocardial infarction HLD (hyperlipidemia) Ischemic cardiomyopathy Left ventricular diastolic dysfunction Malaise and fatigue Nonrheumatic mitral (valve) insufficiency Normal colonoscopy Secondary pulmonary arterial hypertension Stenosis of right carotid artery Tobacco user Home Medications aspirin 81 mg chewable tablet 81 mg PO DAILY@0800 asparin 10/23/18 [Rx Last Taken 09/07/22] cholecalciferol (vitamin D3) 50 mcg (2,000 unit) capsule 50 mcg PO DAILY vitamin 10/08/19 [History Last Taken Unknown] amlodipine 10 mg tablet 10 mg PO DAILY HTN #90 tabs 03/11/21 [Rx Last Taken 09/07/22] duloxetine 30 mg capsule,delayed release 30 mg PO BID depression #180 caps 08/04/21 [Rx Last Taken 09/07/22] doxazosin 4 mg tablet 2 mg PO QHS urinary retention 03/15/22 [History Last Taken 09/07/22] carvedilol 25 mg tablet 25 mg PO BID HTN #180 tabs 05/16/22 [Rx Last Taken 09/07/22] sacubitril 49 mg-valsartan 51 mg tablet (Entresto) 1 tab PO BID cardiac #60 tabs 08/26/22 [Rx Last Taken 09/07/22] atorvastatin 80 mg tablet 80 mg PO QHS #30 tabs 09/10/22 [Rx Last Taken Unknown] hydrochlorothiazide 25 mg tablet 25 mg PO DAILY #30 tabs 09/10/22 [Rx Last Taken Unknown] rivaroxaban 20 mg tablet (Xarelto) 20 mg PO DAILY #30 tabs 09/10/22 [Rx Last Taken Unknown] ondansetron 4 mg disintegrating tablet 4 mg PO Q8H PRN PRN Nausea #10 tabs 09/14/22 [Rx Last Taken Unknown] ticagrelor 90 mg tablet (Brilinta) 90 mg PO BID #60 tabs 09/14/22 [Rx Last Taken Unknown] Allergy/AdvReac Type Severity Reaction Status Date / Time codeine AdvReac Upset Verified 09/14/22 16:21 Stomach Family History Father Heart disease Alcoholism Brother Alcoholism Grandfather Heart disease Surgical History H/O coronary artery bypass surgery (2013) History of colonoscopy History of left heart catheterization (10/22/18) History of prostate biopsy History of right-sided carotid endarterectomy (2010) Social History housing: house Smoking Status: Former smoker Tobacco: How many years used: 35 alcohol intake: never substance use type: does not use what type of physical activity do you participate in: walking frequency: daily ROS ROS ED ROS Narrative A complete review of systems was performed and is negative except as documented in the history of present illness. Some specific details below. Constitutional: No recent fevers or chills. No malaise. He does not feel ill. EYE: No discharge, visual complaints, or pain. He had no visual field cut. ENT: No difficulty swallowing. No swelling. No pain. No reflux symptoms. CV: See history of present illness. Patient denies chest pain palpitations or's pauses in his heart rate. Respiratory: No coughing or shortness of breath. GI: No abdominal pain. No nausea vomiting diarrhea. No blood in stool. : No frequency dysuria or hematuria. Musculoskeletal: No recent trauma. He did not actually fall to the ground. No pains. No swelling. Skin: No rash. Nondiaphoretic. Neuro: No weakness or numbness. See history of present illness. Endocrine: No polyuria or polydipsia. EXAM Physical Exam Narrative Exam Narrative: CONSTITUTIONAL: Patient is nontoxic in appearance. The patient looks comfortable. Work of breathing looks normal. HEENT: No notable trauma. Mucous membranes do look a bit dry. No sinus tenderness. No indication of pain with swallowing. EYES: No conjunctival injection. No proptosis. NECK:No JVD. No stridor. CARDIOVASCULAR: Mildly bradycardic rate. Regular rhythm. No notable murmur. No JVD. But he appears to be in sinus rhythm with a rate of about 58 on the monitor. I only saw 1 PVC the entire time I was in the room. RESPIRATORY: No respiratory distress. Breathing is unlabored. No wheezes. No rhonchi. No rales. No pain with a deep breath. No chest wall tenderness. GASTROINTESTINAL: Not distended. Bowel sounds are normal. No tenderness. No guarding. No rebound. No palpable mass. No bruit is heard. GENITOURINARY: No tenderness over the bladder. No CVA tenderness. MUSCULOSKELETAL: Atraumatic. No peripheral edema. No cord. No tenderness along the deep venous system. No asymmetry. No distended veins. NEUROLOGICAL: Patient is alert and appropriate. No focal deficit noted. SKIN: No noted rashes. No diaphoresis. PSYCHIATRIC: Patient is calm. Mood is appropriate. Const Vital Signs: 09/14/22 16:18 09/14/22 16:23 09/14/22 17:11 Temperature 96.5 F L Temperature Source Temporal Pulse Rate 60 Pulse Rate [Lying] 59 L Pulse Rate [Sitting (for 1 minute prior to obtaining)] 58 L Pulse Rate [Standing (for 1 minute prior to obtaining)] 66 Respiratory Rate 19 H Respiratory Pattern Normal Blood Pressure 124/75 H Blood Pressure [Lying] 135/74 H Blood Pressure [Sitting (for 1 minute prior to obtaining)] 140/79 H Blood Pressure [Standing (for 1 minute prior to obtaining)] 139/91 H Blood Pressure Mean 91 Blood Pressure Mean [Lying] 94 Blood Pressure Mean [Sitting (for 1 minute prior to obtaining)] 99 Blood Pressure Mean [Standing (for 1 minute prior to obtaining)] 107 Pulse Ox 97 Oxygen Delivery Method Room Air 09/14/22 18:53 Temperature Temperature Source Pulse Rate 71 Pulse Rate [Lying] Pulse Rate [Sitting (for 1 minute prior to obtaining)] Pulse Rate [Standing (for 1 minute prior to obtaining)] Respiratory Rate 16 Respiratory Pattern Blood Pressure 134/90 H Blood Pressure [Lying] Blood Pressure [Sitting (for 1 minute prior to obtaining)] Blood Pressure [Standing (for 1 minute prior to obtaining)] Blood Pressure Mean 104 Blood Pressure Mean [Lying] Blood Pressure Mean [Sitting (for 1 minute prior to obtaining)] Blood Pressure Mean [Standing (for 1 minute prior to obtaining)] Pulse Ox 97 Oxygen Delivery Method Room Air MDM MDM MDM Narrative Medical decision making narrative: Patient CBC shows normal white count hemoglobin platelets. Patient's electrolytes show no marked abnormalities. Minimally low sodium. But he does have a new rise of his BUN and creatinine. This is consistent with him not eating and drinking as much. He was given IV fluids here. Glucose was minimally up at 132. My independent interpretation of his CT shows no acute bleeding. Final reading does show the evolution of late subacute infarction of the right occipital parietal lobe which was seen on his prior imaging but there is no hemorrhagic conversion. Patient was given fluids here. I think he does have some dehydration. I think he is also having some symptoms related to his lower blood pressure. He evidently was not taking his meds well before. I think he is now taking them and he might be on an excessive dose. I would lean toward having him hold the carvedilol if his blood pressure is below about 120 or his heart rate is below 60. Patient's gotten up and walked around. He has been doing well. He wants to go home. He did eat some snacks here and drinks any fluids. The family states he is not eating and drinking much. He states sometimes he gets nauseated which is chronic but that is generally not his issue. He just does not really think about eating or drinking. I explained that I cannot fix that but the family will encourage it. Lab Data Attestation: I reviewed the patient's lab results. Labs: Laboratory Results - last 24 hr 09/14/22 16:25 WBC 7.9 RBC 5.25 Hgb 15.1 Hct 45.0 MCV 85.7 MCH 28.8 MCHC 33.6 RDW Std Deviation 41.5 RDW Coeff of [place] 13.2 Plt Count 243 MPV 10.9 Immature Gran % (Auto) 0.400 Neut % (Auto) 72.6 H Lymph % (Auto) 17.1 L [place] % (Auto) 9.4 Eos % (Auto) 0.1 Baso % (Auto) 0.4 Absolute Neuts (auto) 5.7 Absolute Lymphs (auto) 1.35 Nucleated RBC % 0 Sodium 132 L Potassium 3.5 Chloride 102 Carbon Dioxide 23.0 Anion Gap 7 BUN 25 H Creatinine 2.15 H Estim Creat Clear Calc 29.80 Est GFR (MDRD) Af Amer 40 L Est GFR (MDRD) Non-Af 33 L BUN/Creatinine Ratio 11.6 Glucose 132 H Calcium 8.4 L Radiography Diagnostic Testing: Clinical Impression(s) from Imaging Studies Brain CT 09/14/22 17:09 IMPRESSION: There are no acute findings. There is an evolving late subacute ischemic infarction of the right occipital parietal lobe. No hemorrhagic conversion. Electronically Signed: Wallace Teixeira MD at 17:45 EDT Reading Location ID and State: [facility] / [place] , Service support , EKG Initial EKG: Comments: My independent interpretation the patient's EKG done for near syncope shows sinus rhythm with bradycardic rate at 54. No ventricular ectopy. Diffuse nonspecific ST and T wave change. IA interval, QRS duration are normal. QTc is a bit toward the longer end at 481 ms. These changes are consistent with prior from 08 June 2020 Discharge Plan Triage Chief Complaint: Syncope Other Complaint: Hypotension ED Provider: Milind Tan Dx/Rx/DC Orders Clinical Impression: Acute hypotension, Creatinine elevation, Near syncope, Dehydration Instructions: ED Dehydration (Adult), ED Low Blood Pressure, All Causes Prescriptions: New ondansetron [ondansetron] 4 mg tablet,disintegrating 4 mg PO Q8H PRN PRN (Reason: Nausea) Qty: 10 0RF No Action cholecalciferol (vitamin D3) 50 mcg (2,000 unit) capsule 50 mcg PO DAILY amlodipine 10 mg tablet 10 mg PO DAILY Qty: 90 3RF duloxetine 30 mg capsule,delayed release(DR/EC) 30 mg PO BID Qty: 180 3RF doxazosin 4 mg tablet 2 mg PO QHS Brilinta 90 mg tablet 90 mg PO BID Qty: 60 1RF aspirin 81 MG tablet,chewable 81 mg PO DAILY@0800 0RF atorvastatin 80 mg Tablet 80 mg PO QHS Qty: 30 0RF Xarelto 20 mg tablet 20 mg PO DAILY Qty: 30 0RF Rx Instructions: must administer with evening meal hydrochlorothiazide 25 mg Tablet 25 mg PO DAILY Qty: 30 0RF carvedilol 25 mg tablet 25 mg PO BID Qty: 180 3RF Rx Instructions: must administer with a meal/food Entresto 49-51 mg tablet 1 tab PO BID Qty: 60 11RF Primary Care Provider: Jn Worthington Referrals: Jn Worthington MD [Primary Care Provider] - 3-5 Days Disposition Disposition: Home, Self Care
[2022-09-14 20:51] VITALS: BP 129/109; PULSE 71; RESP 24; O2SAT 98
== END 2022-09-14 20:58 | disposition home or self-care (01) ==
PROVIDERS: Emergency Provider Emergency Medicine; PCP Internal Medicine; Visit Provider Emergency Medicine
DX: I95.9 Hypotension, unspecified (principal); E86.0 Dehydration; N18.9 Chronic kidney disease, unspecified; I25.10 Atherosclerotic heart disease of native coronary artery without angina pectoris; R55 Syncope and collapse; I12.9 Hypertensive chronic kidney disease with stage 1 through stage 4 chronic kidney disease, or unspecified chronic kidney disease; E78.5 Hyperlipidemia, unspecified; Z87.891 Personal history of nicotine dependence; Z79.01 Long term (current) use of anticoagulants; Z79.02 Long term (current) use of antithrombotics/antiplatelets; Z86.73 Personal history of transient ischemic attack (TIA), and cerebral infarction without residual deficits; Z79.82 Long term (current) use of aspirin; Z79.899 Other long term (current) drug therapy; F32.A Depression, unspecified; N40.0 Benign prostatic hyperplasia without lower urinary tract symptoms; R79.89 Other specified abnormal findings of blood chemistry
CPT/HCPCS: 70450; 80048; 85025; 93005; 96360; 99285; A4216

== ENCOUNTER 2022-09-23 14:22 | Inpatient (IN) | payer MEDICARE, SELFPAY ==
[2022-09-23] VITALS (10 sets, daily range): BP systolic 79–148; BP diastolic 56–86; PULSE 60–73; RESP 10–18; TEMP 35.6–36.7; O2SAT 94–97; BMI 26.0; BMI 25.2
--- NOTE | 2022-09-23 14:49 | CT_ITS ---
STUDY: CT BRAIN WITHOUT CONTRAST REASON FOR EXAM: Male, 67 years old. Syncope RADIATION DOSAGE (If Supplied By Facility): CTDIvol = ( 44.99 ) mGy, DLP = ( 812.98 ) mGycm TECHNIQUE: Transaxial CT imaging of the brain was performed without administration of intravenous contrast material. Individualized dose optimization techniques were used for this CT. COMPARISON: Comparison is made with prior study September 14, 2022. FINDINGS: Normal soft tissue structures. Normal calvarium. There is mild cerebral atrophy with widening of the extra-axial spaces and ventricular dilatation. There are areas of decreased attenuation within the white matter tracts of the supratentorial brain, consistent with microvascular disease changes. Stable small bilateral lacunar infarcts in the basal ganglia. Normal brainstem. Normal cerebellum. There is no intracranial hemorrhage. There are no findings of an acute ischemic infarction. Normal visualized paranasal sinuses. CT/Brain/Head without Contrast IMPRESSION: Chronic involutional changes of the brain. Electronically Signed: Bob Clifton MD at 15:38 EDT ,
--- NOTE | 2022-09-23 14:57 | EDS_ITS ---
HPI History of Present Illness Chief Complaint: Syncope Informant: patient Onset/Context/Timing Onset: Today Context: Sudden Onset Quality: Weakness Location: Generalized Worsened by: Nothing Relieved by: Nothing Associated Symptoms Associated Symptoms: Decreased appetite Narrative Narrative: Patient presents with a syncopal episode that occurred today. Patient states he had a similar episode 1 week ago and was dehydrated at that time. Patient is scheduled for carotid endarterectomy in October by Dr. Coronado. states patient has been feeling weak over the past several days. states that the patient has had decreased appetite. Patient denies any chest pain or palpitations. Patient states he did have a cough. states patient coughed once just prior to passing out. Patient denies any fevers or chills. Patient denies any shortness of breath. PFSH PFSH Medical History Atherosclerosis of coronary artery of [place] heart without angina pectoris BPH (benign prostatic hyperplasia) CKD (chronic kidney disease) CVA (cerebrovascular accident) Depression Elevated PSA, less than 10 ng/ml Erectile dysfunction Essential (primary) hypertension Facial paresthesia History of myocardial infarction HLD (hyperlipidemia) Ischemic cardiomyopathy Left ventricular diastolic dysfunction Nonrheumatic mitral (valve) insufficiency Secondary pulmonary arterial hypertension Stenosis of right carotid artery Tobacco user Home Medications aspirin 81 mg chewable tablet 81 mg PO DAILY@0800 asparin 10/23/18 [Rx Last Ta jac 09/07/22] cholecalciferol (vitamin D3) 50 mcg (2,000 unit) capsule 50 mcg PO DAILY vitamin 10/08/19 [History Last Taken Unknown] amlodipine 10 mg tablet 10 mg PO DAILY HTN #90 tabs 03/11/21 [Rx Last Taken 09/07/22] duloxetine 30 mg capsule,delayed release 30 mg PO BID depression #180 caps 08/04/21 [Rx Last Taken 09/07/22] doxazosin 4 mg tablet 2 mg PO QHS urinary retention 03/15/22 [History Last Taken 09/07/22] carvedilol 25 mg tablet 25 mg PO BID HTN #180 tabs 05/16/22 [Rx Last Taken 09/07/22] sacubitril 49 mg-valsartan 51 mg tablet (Entresto) 1 tab PO BID cardiac #60 tabs 08/26/22 [Rx Last Taken 09/07/22] atorvastatin 80 mg tablet 80 mg PO QHS #30 tabs 09/10/22 [Rx Last Taken Unknown] hydrochlorothiazide 25 mg tablet 25 mg PO DAILY #30 tabs 09/10/22 [Rx Last Taken Unknown] rivaroxaban 20 mg tablet (Xarelto) 20 mg PO DAILY #30 tabs 09/10/22 [Rx Last Taken Unknown] ondansetron 4 mg disintegrating tablet 4 mg PO Q8H PRN PRN Nausea #10 tabs 09/14/22 [Rx Last Taken Unknown] ticagrelor 90 mg tablet (Brilinta) 90 mg PO BID #60 tabs 09/14/22 [Rx Last Taken Unknown] Allergy/AdvReac Type Severity Reaction Status Date / Time codeine AdvReac Upset Verified 09/14/22 16:21 Stomach Family History Father Heart disease Alcoholism Brother Alcoholism Grandfather Heart disease Surgical History (Updated 09/23/22 @ 22:43 by Elidia Moreno) H/O coronary artery bypass surgery (2013) History of colonoscopy History of left heart catheterization (10/22/18) History of prostate biopsy History of right-sided carotid endarterectomy (2010) Hx of CABG Social History housing: house Smoking Status: Former smoker Tobacco: How many years used: 35 alcohol intake: never substance use type: does not use what type of physical activity do you participate in: walking frequency: daily ROS ROS ED Constitutional Constitutional ED: Denies chills or fever(s) Eyes Eyes: Denies blurry vision or change in vision ENT ENT ED: Denies rhinorrhea or sore throat Cardiovascular Cardiovascular: Denies chest pain or palpitations Respiratory/Chest Respiratory/Chest: Reports cough; Denies dyspnea Gastrointestinal Gastrointestinal: Reports nausea and vomiting Genitourinary Genitourinary ED: Denies dysuria or hematuria Musculoskeletal Musculoskeletal: Denies back pain or neck pain Integumentary Denies abscess or rash Neurologic Neurologic: Reports weakness; Denies headache(s) Allergic/Immunologic Allergic/Immunologic ED: Denies mouth swelling or urticaria EXAM Physical Exam Const Vital Signs: 09/23/22 14:23 09/23/22 14:26 09/23/22 15:02 Temperature 96.0 F L Temperature Source Temporal Pulse Rate 64 63 Pulse Rate [Lying] Pulse Rate [Sitting (for 1 minute prior to obtaining)] Pulse Rate [Standing (for 1 minute prior to obtaining)] Respiratory Rate 10 L 18 Blood Pressure 89/72 L 79/56 L Blood Pressure [Lying] Blood Pressure [Sitting (for 1 minute prior to obtaining)] Blood Pressure [Standing (for 1 minute prior to obtaining)] Blood Pressure Mean 77 63 Blood Pressure Mean [Lying] Blood Pressure Mean [Sitting (for 1 minute prior to obtaining)] Blood Pressure Mean [Standing (for 1 minute prior to obtaining)] Pulse Ox 94 94 Oxygen Delivery Method Room Air Room Air 09/23/22 16:47 09/23/22 17:19 09/23/22 18:42 Temperature Temperature Source Pulse Rate 66 68 Pulse Rate [Lying] 68 Pulse Rate [Sitting (for 1 minute prior to obtaining)] 73 Pulse Rate [Standing (for 1 minute prior to obtaining)] 73 Respiratory Rate 15 15 Blood Pressure 116/81 H 121/84 H Blood Pressure [Lying] 121/81 H Blood Pressure [Sitting (for 1 minute prior to obtaining)] 135/83 H Blood Pressure [Standing (for 1 minute prior to obtaining)] 123/86 H Blood Pressure Mean 92 96 Blood Pressure Mean [Lying] 94 Blood Pressure Mean [Sitting (for 1 minute prior to obtaining)] 100 Blood Pressure Mean [Standing (for 1 minute prior to obtaining)] 98 Pulse Ox 96 96 Oxygen Delivery Method Room Air Room Air 09/23/22 20:00 Temperature Temperature Source Pulse Rate 66 Pulse Rate [Lying] Pulse Rate [Sitting (for 1 minute prior to obtaining)] Pulse Rate [Standing (for 1 minute prior to obtaining)] Respiratory Rate 17 Blood Pressure 148/86 H Blood Pressure [Lying] Blood Pressure [Sitting (for 1 minute prior to obtaining)] Blood Pressure [Standing (for 1 minute prior to obtaining)] Blood Pressure Mean 106 Blood Pressure Mean [Lying] Blood Pressure Mean [Sitting (for 1 minute prior to obtaining)] Blood Pressure Mean [Standing (for 1 minute prior to obtaining)] Pulse Ox 97 Oxygen Delivery Method Room Air Positive well nourished and well developed General Appearance ED: well developed and NAD HEENT Reports moist mucous membranes Neck supple and no JVD Resp normal respiratory effort and clear to auscultation bilaterally Cardio regular rate and regular rhythm GI non-tender and non-distended Palpation: soft Extremity normal to inspection Neuro oriented x3, CN's II-XII intact bilaterally and no sensory deficits noted Sensorium / Orientation: alert Motor Exam: strength 5/5 throughout Psych mental status grossly normal Mood & Affect: depressed Skin Skin Narrative: There is some bruising noted in the left lower abdominal wall. There is no erythema or warmth noted. MDM MDM MDM Narrative Medical decision making narrative: Differential diagnosis includes cardiac dysrhythmia, cardiac ischemia, intracranial bleeding, stroke, electrolyte abnormality, dehydration, kidney injury, carotid artery disease, and viral illness. CBC will be obtained to assess for leukocytosis and anemia. Comprehensive metabolic profile will be obtained to assess for hepatic function, renal function, electrolyte abnormality. PT with INR and PTT will be obtained to assess for coagulopathy. D-dimer will be obtained to assess for pulmonary embolism. High-sensitivity troponin will be obtained to assess for cardiac ischemia. Lactate will be obtained to assess for sepsis. Urinalysis will be obtained to assess for urinary tract infection. CT scan of the brain will be obtained to assess for intracranial bleeding. Chest x-ray will be obtained to assess for pneumonia. COVID-19 rapid antigen will be obtained to assess for COVID-19 infection. Influenza A and influenza B antigens will be obtained to assess for influenza infection. Lab Data Attestation: I reviewed the patient's lab results. Lab results narrative: CBC was reviewed and was within normal limits. PT with INR and PTT were reviewed. PT was 14.5 and INR is 1.1. PTT was slightly elevated at 37.0. D- dimer was slightly elevated at 0.72. Comprehensive metabolic profile was reviewed. Sodium was low at 128 and chloride was 91. BUN was 46 and creatinine was 3.87. Serum lactate was reviewed and was normal at 1.3. High-sensitivity troponin was normal at 18. 2-hour repeat high-sensitivity troponin was normal at 17. Urinalysis was reviewed. There is no evidence of urinary tract infection or hematuria. COVID-19 rapid antigen was reviewed and was negative. Influenza A and influenza B antigens were reviewed and were negative. Labs: Laboratory Results - last 24 hr 09/23/22 09/23/22 09/23/22 14:27 15:00 17:10 WBC 10.7 RBC 5.47 Hgb 15.8 Hct 46.6 MCV 85.2 MCH 28.9 MCHC 33.9 RDW Std Deviation 40.5 RDW Coeff of [place] 13.1 Plt Count 323 MPV 12.0 Immature Gran % (Auto) 0.400 Neut % (Auto) 71.7 H Lymph % (Auto) 11.9 L Story % (Auto) 11.4 H Eos % (Auto) 4.0 Baso % (Auto) 0.6 Absolute Neuts (auto) 7.6 Absolute Lymphs (auto) 1.27 Nucleated RBC % 0 PT 14.5 INR 1.1 APTT 37.0 H D-Dimer Quant (PE/DVT) 0.72 H* Sodium 128 L Potassium 3.0 L Chloride 91 L Carbon Dioxide 26.0 Anion Gap 11 BUN 46 H Creatinine 3.87 H Estim Creat Clear Calc 16.55 Est GFR (MDRD) Af Amer 20 L Est GFR (MDRD) Non-Af 17 L BUN/Creatinine Ratio 11.9 Glucose 133 H Lactic Acid 1.3 Calcium 9.3 Total Bilirubin 0.70 AST 9 L ALT 13 L Alkaline Phosphatase 101 Troponin I High Sens 18 17 Total Protein 7.6 Albumin 3.5 Globulin 4.1 Albumin/Globulin Ratio 0.9 Urine Color Urine Clarity Urine pH Ur Specific [place] Urine Protein Urine Glucose (UA) Urine Ketones Urine Occult Blood Urine Nitrite Urine Bilirubin Urine Urobilinogen Ur Leukocyte Esterase Urine RBC Urine WBC Ur Squamous Epith Cells Urine Bacteria Urine Mucus 09/23/22 19:40 WBC RBC Hgb Hct MCV MCH MCHC RDW Std Deviation RDW Coeff of [place] Plt Count MPV Immature Gran % (Auto) Neut % (Auto) Lymph % (Auto) Story % (Auto) Eos % (Auto) Baso % (Auto) Absolute Neuts (auto) Absolute Lymphs (auto) Nucleated RBC % PT INR APTT D-Dimer Quant (PE/DVT) Sodium Potassium Chloride Carbon Dioxide Anion Gap BUN Creatinine Estim Creat Clear Calc Est GFR (MDRD) Af Amer Est GFR (MDRD) Non-Af BUN/Creatinine Ratio Glucose Lactic Acid Calcium Total Bilirubin AST ALT Alkaline Phosphatase Troponin I High Sens Total Protein Albumin Globulin Albumin/Globulin Ratio Urine Color Yellow Urine Clarity Clear Urine pH 7.0 Ur Specific [place] 1.010 Urine Protein 30 H Urine Glucose (UA) 50 H Urine Ketones Negative Urine Occult Blood 50 H Urine Nitrite Negative Urine Bilirubin Negative Urine Urobilinogen Normal Ur Leukocyte Esterase Negative Urine RBC 0-5 SEEN Urine WBC 0 SEEN Ur Squamous Epith Cells 0 SEEN Urine Bacteria 0 SEEN Urine Mucus 0 SEEN Radiography Diagnostic Testing: Clinical Impression(s) from Imaging Studies Brain CT 09/23/22 14:49 IMPRESSION: Chronic involutional changes of the brain. Electronically Signed: Bob Clifton MD at 15:38 EDT , Chest X-Ray 09/23/22 15:03 IMPRESSION: Stable chest with no acute or active cardiopulmonary disease. Electronically Signed: Lance Cadet MD at 15:13 EDT , CT scan of the brain was obtained. There is no acute intracranial abnormality. This was interpreted by the radiologist and was also independently reviewed by myself. Portable 1 view chest x-ray was obtained. On my independent interpretation, lung moore are clear. There is normal cardiac silhouette. Bony thorax is normal. There is no acute process noted. Radiologist also interpreted the x- ray and agrees. EKG Initial EKG: Attestation: I personally reviewed and interpreted this EKG as follows: Interpretation: Sinus Rhythm (60) and Non-Specific ST Changes Comments: EKG was obtained. On my independent interpretation, it showed a normal sinus rhythm with a rate of 60. MN interval was normal at 156 ms, QRS interval was normal at 96 ms. QTc interval was slightly prolonged at 496 ms. There is borderline left axis deviation at -24. There are nonspecific ST-T wave changes. Prior EKG tracings: available for review Prior: Unchanged (09/14/2022) Management Discussion w/another healthcare provider: Hospitalist Treatment and Re-Evaluation :: Patient was given IV fluids. Patient was advised of his findings. Patient was advised of the need for admission due to his acute kidney injury from dehydration. Patient understands and is agreeable with the plan. Case was discussed with the hospitalist. She will admit the patient to her service. All questions were answered. Discharge Plan Dx/Rx/DC Orders Clinical Impression: Acute kidney injury, Syncope and collapse, Dehydration Disposition Disposition: [facility]
[2022-09-23] MEDS: 0.9% Normal Saline 1,000 ML 1000 ML IV (15:02)
[2022-09-23 15:03] LABS: Absolute Lymphocyte Count 1.27 X10^3/uL (0.83-4.51); Absolute Neutrophil Count 7.6 X10^3/uL (2.0-7.7); Basophil# 0.06 X10^3/uL; Basophil% 0.6 % (0-1); Eosinophil# 0.43 X10^3/uL; Hematocrit 46.6 % (40-54); Hemoglobin 15.8 g/dL (13.0-16.5); Lymphocyte # 1.27 X10^3/ul (0.83-4.51); Lymphocyte % 11.9 % (19-41); Mean Corp Hgb Conc 33.9 g/dL (32-36); Mean Corpuscular Hgb 28.9 pg (27.0-32.0); Mean Corpuscular Volume 85.2 fL (80-94); Monocyte# 1.22 X10^3/uL; Monocyte% 11.4 % (0-10); NRBC Flagged by Analyzer 0 % (0-5); Neutrophil # 7.64 X10^3/uL (2.7-7.7); Neutrophil % 71.7 % (47-70); Platelet Count 323 K/mm3 (150-450); RBC Distribution Width CV 13.1 % (11.6-14.6); RBC Distribution Width SD 40.5 fl (35.1-43.9); Red Blood Count 5.47 M/mm3 (4.6-6.2); White Blood Count 10.7 K/mm3 (4.4-11.0)
--- NOTE | 2022-09-23 15:03 | RAD_ITS ---
STUDY: X-RAY CHEST REASON FOR EXAM: Male, 67 years old. Cough. TECHNIQUE: Single frontal view of the chest. COMPARISON: Chest dated September 08, 2022. FINDINGS: Stable borderline cardiomegaly, sternotomy wires and changes of coronary artery bypass grafting, aortic tortuosity, prominent central pulmonary arteries, scattered healed parenchymal granulomatous calcifications and mild hyperinflation. No new or emergent finding. No abnormality of the visualized soft tissue structures of the upper abdomen. RAD/Chest 1 View (Portable) IMPRESSION: Stable chest with no acute or active cardiopulmonary disease. Electronically Signed: Lance Cadet MD at 15:13 EDT ,
[2022-09-23 15:11] LABS: International Normalized Ratio 1.1; Prothrombin Time (Protime)PT. 14.5 SECONDS (11.7-14.9)
[2022-09-23 15:27] LABS: ALB/GLOB Ratio 0.9 RATIO (0.9-2.4); AST(SGOT) 9 U/L (15-37); Alanine Aminotransfer ALT/SGPT 13 U/L (16-61); Albumin, Serum 3.5 g/dL (3.2-5.0); Alkaline Phosphatase 101 U/L (45-117); Anion Gap 11 (5-15); BUN 46 mg/dL (7-18); BUN/Creat Ratio 11.9 RATIO (10-20); Calcium,Total 9.3 mg/dL (8.5-10.1); Chloride 91 mmol/L (98-107); Creatinine, Serum 3.87 mg/dL (0.70-1.30); EST Glomerular Filtration Rate 17 mL/min (>60); Est Glom Filt Rate - Afr Amer 20 mL/min (>60); Estimated Creatinine Clearance 16.55 ml/min; Globulin 4.1 g/dL (2.2-4.2); Glucose 133 mg/dL (74-106); Protein, Total 7.6 g/dL (6.4-8.2); Sodium Level 128 mmol/L (136-145); Troponin-I HS (w/2H Reflex) 18 pg/mL (3.0-78.0)
[2022-09-23 15:43] LABS: D-Dimer Quantitative (DVT/PE) 0.72 FEU/ug/m (0.27-0.49)
[2022-09-23 15:53] LABS: Lactic Acid 1.3 mmol/L (0.4-1.9)
[2022-09-23 16:59] LABS: Reflex Troponin-HS? (from REC) Y
[2022-09-23 17:42] LABS: Troponin-I HS 17 pg/mL (3.0-78.0)
[2022-09-23 20:05] LABS: Bacteria 0 SEEN /hpf (None Seen); Mucous, Urine 0 SEEN /hpf (<or=2+); Squamous Epithelial Cells - UA 0 SEEN /hpf (0-5); White Blood Cells 0 SEEN /hpf (0-5)
[2022-09-23 20:12] LABS: Color, Urine Yellow (Yellow); Glucose, Dipstick 50 mg/dl (Normal); Ketone-Dipstick Negative (Negative); Leukocyte Esterase-Dipstick Negative /ul (Negative); Nitrite-Dipstick Negative (Negative); Occult Blood-Urine 50 /ul (Negative); Protein-Dipstick 30 mg/dl (Negative); Urine Bilirubin Dipstick Negative (Negative); Urine Clarity Clear (Clear); Urine Urobilinogen Normal (Normal)
[2022-09-23 20:42] LABS: Red Blood Cells-Urine 0-5 SEEN /hpf (0-5)
--- NOTE | 2022-09-23 21:36 | HP.PCM.HOS_ITS ---
HPI - General General Date of Admission: 09/23/22 Date of Service: 09/23/22 Chief Complaint: Decreased intake, fatigue, syncope. HPI Narrative The patient is a 67 y/o M w/ PMHx: Former tobacco use Anxiety and Depression, Hx remote CVA w/ residual RUE weakness, Carotid disease s/p prior BL CEA, CAD s/p CABG, HTN, HLD, CKD stage III unclear subtype, recent discharge 09/10/22 following subacute CVA posterior aspect of the right parietal lobe and occipital lobe w/ R ICA stenosis s/p prior R CEA with Vascular surgery evaluation and planned outpatient follow-up who now re-presents to the [facility] ED on 09/23/22 with history of recent fatigue, malaise and decreased appetite with decreased oral intake with onset of sudden syncopal episode today with similar episode 1 week prior with similar dehydrated appearance at that time with no recent chest pain, palpitations, dyspnea although he did have recent mild cough and reportedly was coughing just prior to his syncopal event prompting EMS call. He does report persistent unchanged right upper extremity weakness and dizziness since recent acute stroke presentation. Work-up in the ED included T96, heart rate 64 BP initially 89/72 decreasing down to 79/56 but improving to 148/86 following int erventions with orthostatics unremarkable, respiratory rate 17, 97% room air, CBC with WC 10.7, hemoglobin 15.8, platelet 323 without marked shift, coags with PT 14.5, INR 1.1, PTT 37, D-dimer 0.72, CMP with sodium 128, potassium 3.0, chloride 91, BUN/creatinine 46/3.87, glucose 133, lactic acid 1.3, unremarkable hepatic profile, troponin 18 with repeat delta 17, urinalysis with occult blood 50, protein 30, glucose 50 otherwise not marked appearing, CT the brain with chronic involutional changes with no acute intracranial findings, chest x-ray with no acute cardiopulmonary findings, SARS COVID and influenza antigen negative, EKG in ED w/ sinus rhythm with nonspecific ST-T wave changes without evidence of acute ischemia. FOR[facility]LY [facility], [facility] Medical History Atherosclerosis of coronary artery of [place] heart without angina pectoris BPH (benign prostatic hyperplasia) CKD (chronic kidney disease) CVA (cerebrovascular accident) Depression Elevated PSA, less than 10 ng/ml Erectile dysfunction Essential (primary) hypertension Facial paresthesia History of myocardial infarction HLD (hyperlipidemia) Ischemic cardiomyopathy Left ventricular diastolic dysfunction Nonrheumatic mitral (valve) insufficiency Secondary pulmonary arterial hypertension Stenosis of right carotid artery Tobacco user Home Medications aspirin 81 mg chewable tablet 81 mg PO DAILY@0800 asparin 10/23/18 [Rx Last Taken 09/07/22] cholecalciferol (vitamin D3) 50 mcg (2,000 unit) capsule 50 mcg PO DAILY vitamin 10/08/19 [History Last Taken Unknown] amlodipine 10 mg tablet 10 mg PO DAILY HTN #90 tabs 03/11/21 [Rx Last Taken 09/07/22] duloxetine 30 mg capsule,delayed release 30 mg PO BID depression #180 caps 08/04/21 [Rx Last Taken 09/07/22] doxazosin 4 mg tablet 2 mg PO QHS urinary retention 03/15/22 [History Last Taken 09/07/22] carvedilol 25 mg tablet 25 mg PO BID HTN #180 tabs 05/16/22 [Rx Last Taken 09/07/22] sacubitril 49 mg-valsartan 51 mg tablet (Entresto) 1 tab PO BID cardiac #60 tabs 08/26/22 [Rx Last Taken 09/07/22] atorvastatin 80 mg tablet 80 mg PO QHS #30 tabs 09/10/22 [Rx Last Taken Unknown] hydrochlorothiazide 25 mg tablet 25 mg PO DAILY #30 tabs 09/10/22 [Rx Last Taken Unknown] rivaroxaban 20 mg tablet (Xarelto) 20 mg PO DAILY #30 tabs 09/10/22 [Rx Last Taken Unknown] ondansetron 4 mg disintegrating tablet 4 mg PO Q8H PRN PRN Nausea #10 tabs 09/14/22 [Rx Last Taken Unknown] ticagrelor 90 mg tablet (Brilinta) 90 mg PO BID #60 tabs 09/14/22 [Rx Last Taken Unknown] Allergy/AdvReac Type Severity Reaction Status Date / Time codeine AdvReac Upset Verified 09/14/22 16:21 Stomach Family History Father Heart disease Alcoholism Brother Alcoholism Grandfather Heart disease Surgical History H/O coronary artery bypass surgery (2013) History of colonoscopy History of left heart catheterization (10/22/18) History of prostate biopsy History of right-sided carotid endarterectomy (2010) Hx of CABG Social History housing: house Smoking Status: Former smoker Tobacco: How many years used: 35 alcohol intake: never substance use type: does not use what type of physical activity do you participate in: walking frequency: daily ROS ROS Narrative Admission Review of Systems: CONSTITUTIONAL: No weight loss, fever, chills, + weakness or fatigue. HEENT: Eyes: No visual loss, blurred vision, double vision or yellow sclerae. Ears, Nose, Throat: No hearing loss, sneezing, congestion, runny nose or sore throat. SKIN: No rash or itching, lesions, wounds. CARDIOVASCULAR: + Syncopal event. No chest pain, chest pressure or chest discomfort, palpitations, edema, orthopnea. RESPIRATORY: No shortness of breath, cough or sputum, wheezing, hemoptysis. GASTROINTESTINAL: + anorexia. No nausea, vomiting or diarrhea, abdominal pain, melena, BRBPR. GENITOURINARY: No dysuria, frequency, urgency or retention. NEUROLOGICAL: + Headache intermittently, dizziness, chronic right upper extremity weakness and dizziness from recent stroke, syncopal event. No paralysis, ataxia, numbness or tingling in the extremities, focal weakness, change in bowel or bladder control, seizure. MUSCULOSKELETAL: + muscle, back pain, joint pain or stiffness. HEMATOLOGIC: + Easy bleeding or bruising. LYMPHATICS: No enlarged nodes. No history of splenectomy. PSYCHIATRIC: + history of depression or anxiety. ENDOCRINOLOGIC: No reports of sweating, cold or heat intolerance. No polyuria or polydipsia. ALLERGIES: No history of asthma, hives, eczema or rhinitis. Vital Signs Vital Signs Vital Signs: 09/23/22 14:23 09/23/22 14:26 09/23/22 15:02 Temperature 96.0 F L Temperature Source Temporal Pulse Rate 64 63 Pulse Rate [Lying] Pulse Rate [Sitting (for 1 minute prior to obtaining)] Pulse Rate [Standing (for 1 minute prior to obtaining)] Respiratory Rate 10 L 18 Blood Pressure 89/72 L 79/56 L Blood Pressure [Lying] Blood Pressure [Sitting (for 1 minute prior to obtaining)] Blood Pressure [Standing (for 1 minute prior to obtaining)] Blood Pressure Mean 77 63 Blood Pressure Mean [Lying] Blood Pressure Mean [Sitting (for 1 minute prior to obtaining)] Blood Pressure Mean [Standing (for 1 minute prior to obtaining)] Pulse Ox 94 94 Oxygen Delivery Method Room Air Room Air 09/23/22 16:47 09/23/22 17:19 09/23/22 18:42 Temperature Temperature Source Pulse Rate 66 68 Pulse Rate [Lying] 68 Pulse Rate [Sitting (for 1 minute prior to obtaining)] 73 Pulse Rate [Standing (for 1 minute prior to obtaining)] 73 Respiratory Rate 15 15 Blood Pressure 116/81 H 121/84 H Blood Pressure [Lying] 121/81 H Blood Pressure [Sitting (for 1 minute prior to obtaining)] 135/83 H Blood Pressure [Standing (for 1 minute prior to obtaining)] 123/86 H Blood Pressure Mean 92 96 Blood Pressure Mean [Lying] 94 Blood Pressure Mean [Sitting (for 1 minute prior to obtaining)] 100 Blood Pressure Mean [Standing (for 1 minute prior to obtaining)] 98 Pulse Ox 96 96 Oxygen Delivery Method Room Air Room Air 09/23/22 20:00 Temperature Temperature Source Pulse Rate 66 Pulse Rate [Lying] Pulse Rate [Sitting (for 1 minute prior to obtaining)] Pulse Rate [Standing (for 1 minute prior to obtaining)] Respiratory Rate 17 Blood Pressure 148/86 H Blood Pressure [Lying] Blood Pressure [Sitting (for 1 minute prior to obtaining)] Blood Pressure [Standing (for 1 minute prior to obtaining)] Blood Pressure Mean 106 Blood Pressure Mean [Lying] Blood Pressure Mean [Sitting (for 1 minute prior to obtaining)] Blood Pressure Mean [Standing (for 1 minute prior to obtaining)] Pulse Ox 97 Oxygen Delivery Method Room Air Weight Weight: 156 lb 8.451 oz Body Mass Index (BMI) 26.0 Physical Exam Narrative Physical Examination: General: Awake, alert, oriented x 3 and cooperative, laying in the ED bed, no acute distress, fatigued appearing, flat affect, from discussion suspect worsen depression with no suicidal ideation Skin: Normal color, normal turgor, no icterus, no cyanosis except for occasional staged ecchymoses. HEENT: AT/NC, EOMI, PERRLA, dry MM, no carotid bruits or JVD noted. Lungs: Mildly diminished, greater bases, appropriate effort, no rales, ronchi or wheezing. Heart: Currently regular rate and rhythm; no gallop, rub audible. Abdomen: Soft, NTTP, ND, hyperactive BS, no HSM. Extremities: No cyanosis, clubbing, or edema. Neurological: Patient awake, alert, oriented as noted, cognitive function intact; pupils equally reactive to light and accommodation, cranial nerves II- XII grossly normal, status post CVA with chronic unchanged right upper extremity weakness/hemiplegia, subjective dizziness complaint from recent stroke, strength moderately to severely global decrease secondary to acute presentation and recent stroke as well as prior stroke. Psychiatric: Affect appears flat, fatigued, from discussions do suspect increased depression with recent acute stroke, underlying history of depression anxiety, no suicidal ideation. Results Lab / Micro Data 09/23/22 14:27 09/23/22 14:27 Labs: Laboratory Results - last 24 hr 09/23/22 14:27: WBC 10.7, RBC 5.47, Hgb 15.8, Hct 46.6, MCV 85.2, MCH 28.9, MCHC 33.9, RDW Std Deviation 40.5, RDW Coeff of [place] 13.1, Plt Count 323, MPV 12.0, Immature Gran % (Auto) 0.400, Neut % (Auto) 71.7 H, Lymph % (Auto) 11.9 L, [place] % (Auto) 11.4 H, Eos % (Auto) 4.0, Baso % (Auto) 0.6, Absolute Neuts (auto) 7.6, Absolute Lymphs (auto) 1.27, Nucleated RBC % 0, PT 14.5, INR 1.1, APTT 37.0 H, D-Dimer Quant (PE/DVT) 0.72 H*, Sodium 128 L, Potassium 3.0 L, Chloride 91 L, Carbon Dioxide 26.0, Anion Gap 11, BUN 46 H, Creatinine 3.87 H, Estim Creat Clear Calc 16.55, Est GFR (MDRD) Af Amer 20 L, Est GFR (MDRD) Non-Af 17 L, BUN/Creatinine Ratio 11.9, Glucose 133 H, Calcium 9.3, Total Bilirubin 0.70, AST 9 L, ALT 13 L, Alkaline Phosphatase 101, Troponin I High Sens 18, Total Protein 7.6, Albumin 3.5, Globulin 4.1, Albumin/Globulin Ratio 0.9 09/23/22 15:00: Lactic Acid 1.3 09/23/22 17:10: Troponin I High Sens 17 09/23/22 19:40: Urine Color Yellow, Urine Clarity Clear, Urine pH 7.0, Ur Specific [place] 1.010, Urine Protein 30 H, Urine Glucose (UA) 50 H, Urine Ketones Negative, Urine Occult Blood 50 H, Urine Nitrite Negative, Urine Bilirubin Negative, Urine Urobilinogen Normal, Ur Leukocyte Esterase Negative, Urine RBC 0-5 SEEN, Urine WBC 0 SEEN, Ur Squamous Epith Cells 0 SEEN, Urine Bacteria 0 SEEN, Urine Mucus 0 SEEN Micro: Microbiology 09/23/22 15:00 Nasal Secretion SARS-CoV-2 & FLU Antigen (Rapid) - Final Radiology Impression Brain CT 09/23/22 14:49 IMPRESSION: Chronic involutional changes of the brain. Electronically Signed: Bob Clifton MD at 15:38 EDT , Chest X-Ray 09/23/22 15:03 IMPRESSION: Stable chest with no acute or active cardiopulmonary disease. Electronically Signed: Lance Cadet MD at 15:13 EDT , Assessment & Plan Assessment/Plan (1) Syncope: PLAN: Plan The patient is a 67 y/o M w/ PMHx: Former tobacco use Anxiety and Depression, Hx remote CVA w/ residual RUE weakness, Carotid disease s/p prior BL CEA, CAD s/p CABG, HTN, HLD, CKD stage III unclear subtype, recent discharge 09/10/22 following subacute CVA posterior aspect of the right parietal lobe and occipital lobe w/ R ICA stenosis s/p prior R CEA with Vascular surgery evaluation and planned outpatient follow-up who now re-presents to the [facility] ED on 09/23/22 with history of recent fatigue, malaise and decreased appetite with decreased oral intake with onset of sudden syncopal episode today with similar episode 1 week prior with similar dehydrated appearance at that time with no recent chest pain, palpitations, dyspnea although he did have recent mild cough and reportedly was coughing just prior to his syncopal event prompting EMS call. #1. Syncopal Event, potentially related to acute kidney injury/hypovolemic presentation in addition to the fact that this occurred just immediately following a coughing bout/possible cough syncope: Unclear exact etiology but do suspect hypovolemic component as patient was hypotensive upon presentation with acute kidney injury and was administered IV fluids prior to the orthostatics being obtained of note, EKG in ED w/ sinus rhythm with nonspecific ST-T wave changes without evidence of acute ischemia, CXR w/ no acute cardiopulmonary findings, initial trop normal and delta troponin also normal, CT head unremarkable also. Will admit to PCU to be cautious, place on a monitored bed to assure no acute myocardial infarction with serial cardiac enzymes and EKGs. Will maintain on fall precautions, repeat a.m. orthostatic and AM orthostatic, continue judicious fluids, recent 09/08/2022 echocardiogram with normal LV size, normal LV systolic function, EF 55%, stage I diastolic dysfunction, moderate concentric LVH, PASP 28 mmHg and is noted recent carotid evaluation with planned outpatient follow-up with vascular surgery thus will defer repeating this evaluation. PT/OT consultation to ascertain stability and discharge needs. #2. Acute kidney injury: Secondary to decreased oral intake coupled with ne phrotoxic medication. Admission BUN/Cr 46/3.87, prior baseline creatinine noted to be most recently 09/14/2022 creatinine 2.15 which unfortunately had trended upward from most recent at discharge 09/10/2022 creatinine 1.34 at that time but in the past he has risen up to 2.2. Will hydrate, hold nephrotoxic medications and repeat chemistry in AM. If it is not improving low threshold to further work-up with potential renal ultrasound/FeNa assessment/nephrology involvement if appropriate. #3. Acute hyponatremia, hypochloremia, suspected hypovolemic component: Admission sodium 128, chloride 91, baseline primarily 130s range sodium, will continue judiciously hydrate, trend CMP. #4. Recent CVA, Carotid disease w/ recent presentation dizziness, prior CVA w/ residual RUE weakness: Recent discharge with subacute CVA as noted, MRI with noted subacute cortical gyral ischemic infarct in the right parietal lobe and smaller subacute cortical gyral ischemic infarcts in the adjacent cortices of the right superior frontal gyrus and right middle frontal gyrus, CTA with R ICA disease, discharged on antiplt therapy with outpatient vascular surgery follow- up, continue brillinta, xarelto, statin therapy, holding hypertensive regimen given hypertensive presentation. #5. CAD: s/p CABG x 3, will continue Brilinta, Xarelto, statin therapy, holding hypertensive regimen given hypertensive presentation, add back once appropriate blood pressure and appropriate renal function. #6. Anxiety and depression: We will continue patient home duloxetine regimen but do suspect his depression is increased since his most recent stroke and this should be followed aggressively outpatient including potentially counseling. #7. Hypertension: Upon presentation patient hypotensive, holding all regimen, resume once clinically appropriate. #8. Hyperlipidemia: We will continue patient on statin therapy. #9. Former tobacco use: Encourage continued tobacco cessation. #10. DVT prophylaxis: We will continue patient home Xarelto regimen. #11. CODE status: Full code. Charges/Coding Visit Charges Inpatient E&M: 14846 Init Hosp L3
--- NOTE | 2022-09-23 21:46 | EKG12_ITS ---
Test Reason : Dysrhythmia Blood Pressure : / mmHG Vent. Rate : 060 BPM Atrial Rate : 060 BPM P-R Int : 156 ms QRS Dur : 096 ms QT Int : 496 ms P-R-T Axes : 025 -24 130 degrees QTc Int : 496 ms Normal sinus rhythm ST & T wave abnormality, consider lateral ischemia Prolonged QT Abnormal ECG Confirmed by NICOLE BURNS, CARROLL ([id number]), pictures editor ABDOUL OGLESBY ([id number]) on 09/26/2022 8:44:56 AM Referred By: Shakira Confirmed By:MARYLIN RIVERA MD
[2022-09-23] MEDS: Potassium Chloride Oral Tablet 20 MEQ 40 MEQ PO (23:18)
[2022-09-23] MEDS: 0.9% Normal Saline 1,000 ML 100 ML IV (23:19)
[2022-09-23 23:28] LABS: Magnesium 2.4 mg/dL (1.6-2.6)
[2022-09-23 23:58] LABS: Troponin-I HS 22 pg/mL (3.0-78.0)
[2022-09-24] VITALS (7 sets, daily range): BP systolic 76–135; BP diastolic 53–82; PULSE 64–85; RESP 16–22; TEMP 36.6–36.8; O2SAT 98–99; BMI 25.2
[2022-09-24 02:15] LABS: Troponin-I HS 19 pg/mL (3.0-78.0)
[2022-09-24 05:47] LABS: Absolute Lymphocyte Count 1.49 X10^3/uL (0.83-4.51); Absolute Neutrophil Count 6.1 X10^3/uL (2.0-7.7); Basophil# 0.04 X10^3/uL; Basophil% 0.4 % (0-1); Eosinophil# 0.39 X10^3/uL; Eosinophils% 4.3 % (0-5); Hematocrit 42.8 % (40-54); Hemoglobin 14.5 g/dL (13.0-16.5); Lymphocyte # 1.49 X10^3/ul (0.83-4.51); Lymphocyte % 16.2 % (19-41); Mean Corp Hgb Conc 33.9 g/dL (32-36); Mean Corpuscular Hgb 28.9 pg (27.0-32.0); Mean Corpuscular Volume 85.3 fL (80-94); Mean Platelet Vol. 11.6 fl (6.2-12.0); Monocyte# 1.08 X10^3/uL; Monocyte% 11.8 % (0-10); NRBC Flagged by Analyzer 0 % (0-5); Neutrophil # 6.14 X10^3/uL (2.7-7.7); Platelet Count 275 K/mm3 (150-450); RBC Distribution Width SD 40.4 fl (35.1-43.9); Red Blood Count 5.02 M/mm3 (4.6-6.2); White Blood Count 9.2 K/mm3 (4.4-11.0)
[2022-09-24] MEDS: 0.9% Normal Saline 1,000 ML 100 ML IV (05:48)
[2022-09-24 06:09] LABS: Troponin-I HS 23 pg/mL (3.0-78.0)
[2022-09-24 06:16] LABS: ALB/GLOB Ratio 0.8 RATIO (0.9-2.4); AST(SGOT) 10 U/L (15-37); Alanine Aminotransfer ALT/SGPT 11 U/L (16-61); Alkaline Phosphatase 90 U/L (45-117); Anion Gap 7 (5-15); BUN 42 mg/dL (7-18); BUN/Creat Ratio 14.9 RATIO (10-20); Calcium,Total 8.6 mg/dL (8.5-10.1); Chloride 99 mmol/L (98-107); Creatinine, Serum 2.82 mg/dL (0.70-1.30); EST Glomerular Filtration Rate 24 mL/min (>60); Est Glom Filt Rate - Afr Amer 29 mL/min (>60); Estimated Creatinine Clearance 22.72 ml/min; Globulin 3.7 g/dL (2.2-4.2); Glucose 96 mg/dL (74-106); Potassium 3.4 mmol/L (3.5-5.1); Protein, Total 6.7 g/dL (6.4-8.2); Sodium Level 132 mmol/L (136-145)
[2022-09-24] MEDS: Aspirin 81 MG TAB.CHEW PO (07:54)
[2022-09-24] MEDS: DULoxetine Hcl 30 MG Capsule PO ×2 (07:54→20:47)
--- NOTE | 2022-09-24 10:20 | CASEMGMT ---
[facility] Readmission Review: Index: 09/08 thru 09/10 Dx: CVA Readmission: 09/23 Dx: syncope, TOMMY, dehydration Pt with comorbidities including previous CVA, carotid disease, CAD s/p CABG, HTN, HLD, and CKD III was admitted on the above dates for the corresponding dx. Pt was discharged to home with the support of from the index admission. PT/OT noted no additional therapy was recommended. This EF[facility] ALDRICH met with pt and pt's at bedside. Pt's expressed concerns with managing pt's medications and states pt has low energy, stays in bed the majority of the time and she has difficulty with encouraging pt to be compliant with medications, eating and drinking. Pt with limited responses to questions when asked how he feels he is managing at home. Pt's states one of their sons does live with them. Discussed option for home health to assist with pt's for medication management and additional support. Pt's agreeable to home health services. List of home health providers consistent with pt's insurance network, care needs, and preferred geographic area printed from [employer] guide and includes quality and resource use data provided to pt's . Pt's states she will review. Requested she provide 3 preferences and will follow-up with her on Monday due to inability to set-up HH on the weekend. Pt's expressed understanding. Plan: Home health SN, PT/OT pending pt/pt's preference/selection Yanet Kwon RN CM
[2022-09-24] MEDS: Potassium Chloride Oral Tablet 20 MEQ 60 MEQ PO (12:40)
--- NOTE | 2022-09-24 16:29 | NURSING ---
pt laying in bed obviously anxious. He states he doesn't understand why I am still here in this place all be myself. He can say he is at [facility] but doesn't appear to understand what that means. This RN ambulated pt in the [place], showed him nurses at the nurses station, indicated pt's in rooms/warehouse assistant and other staff. He says OK but then shruggs his shoulders and again saying he doesn't understand. Returned to room. While still confused, he is much less anxious.
[2022-09-24] MEDS: Rivaroxaban 20 MG Tablet PO (16:50)
--- NOTE | 2022-09-24 17:46 | PN.HOSP_ITS ---
Reason for Visit Reason for Visit: Diagnoses Syncope and collapse (09/23/22) Subjective Subjective Patient seen at bedside this morning. Resting comfortably in bed and conversing normally. Continues to have decreased appetite but states he has been trying to eat and drink what he can today. Feels somewhat fatigued but improved from yesterday. Has been able to get out of bed without issue. Ambulates to the bathroom without issue per his report. Denies any acute pain or discomfort. No other acute concerns this morning. Attempted to call patient's but was unable to reach her. We will try again tomorrow. Per nursing report, patient's mental status appears to be somewhat waxing and waning. Patient states that he knows he is in [facility] but is unsure as to why he is here. He also does not seem to show much insight into his current medical condition. Objective Data Objective Data Vital Signs: Vital Signs Temp Pulse Resp BP Pulse Ox O2 Del Method 97.9 F 70 22 H 127/70 H 99 Room Air 09/24/22 16:00 09/24/22 16:00 09/24/22 16:00 09/24/22 16:00 09/24/22 16:00 09/24/22 16:00 Oxygen Delivery Method Room Air Weight: 68.7 kg Body Mass Index (BMI) 25.2 Intake & Output: Intake and Output for Last 24 Hours 09/22/22 09/23/22 09/24/22 23:59 23:59 23:59 Intake Total 1000 / 1240 2388.33 / 2388.33 Balance 1000 / 1240 2388.33 / 2388.33 Lab / Micro Data Attestation: I reviewed the patient's lab results. 09/24/22 05:25 09/24/22 05:25 Labs: Laboratory Results - last 24 hr 09/23/22 17:10: Magnesium 2.4 09/23/22 19:40: Urine Color Yellow, Urine Clarity Clear, Urine pH 7.0, Ur Specific Spangle 1.010, Urine Protein 30 H, Urine Glucose (UA) 50 H, Urine Ketones Negative, Urine Occult Blood 50 H, Urine Nitrite Negative, Urine Bilirubin Negative, Urine Urobilinogen Normal, Ur Leukocyte Esterase Negative, Urine RBC 0-5 SEEN, Urine WBC 0 SEEN, Ur Squamous Epith Cells 0 SEEN, Urine Bacteria 0 SEEN, Urine Mucus 0 SEEN 09/23/22 23:32: Troponin I High Sens 22 09/24/22 01:28: Troponin I High Sens 19 09/24/22 05:25: WBC 9.2, RBC 5.02, Hgb 14.5, Hct 42.8, MCV 85.3, MCH 28.9, MCHC 33.9, RDW Std Deviation 40.4, RDW Coeff of [place] 13.0, Plt Count 275, MPV 11.6, Immature Gran % (Auto) 0.300, Neut % (Auto) 67.0, Lymph % (Auto) 16.2 L, [place] % (Auto) 11.8 H, Eos % (Auto) 4.3, Baso % (Auto) 0.4, Absolute Neuts (auto) 6.1, Absolute Lymphs (auto) 1.49, Nucleated RBC % 0, Sodium 132 L, Potassium 3.4 L, Chloride 99, Carbon Dioxide 26.0, Anion Gap 7, BUN 42 H, Creatinine 2.82 H, Estim Creat Clear Calc 22.72, Est GFR (MDRD) Af Amer 29 L, Est GFR (MDRD) Non-Af 24 L, BUN/Creatinine Ratio 14.9, Glucose 96, Calcium 8.6, Total Bilirubin 0.50, AST 10 L, ALT 11 L, Alkaline Phosphatase 90, Troponin I High Sens 23, Total Protein 6.7, Albumin 3.0 L, Globulin 3.7, Albumin/Globulin Ratio 0.8 L Micro: Microbiology 09/23/22 15:00 Nasal Secretion SARS-CoV-2 & FLU Antigen (Rapid) - Final Physical Exam Const alert, no apparent distress and average body habitus Constitutional Narrative: Sitting comfortably in bed, conversing normally, mildly flat affect, no acute distress. General Appearance: cooperative and comfortable HEENT normocephalic, head/scalp atraumatic, hearing grossly normal bilaterally, nasal mucous membranes and turbinates normal and moist oral mucous membranes Eyes PERRL, EOMs intact bilaterally and conjunctivae normal Neck full ROM and supple Chest inspection of chest normal Resp normal respiratory effort, normal air movement, no use of accessory muscles and clear to auscultation bilaterally Cardio regular rate, regular rhythm, no murmurs and peripheral pulses 2+ throughout GI normal to inspection, nondistended, normoactive bowel sounds, soft to palpation, non-tender and non-distended Back/Spine normal ROM Extremity normal to inspection, full ROM and no pedal edema Skin no rashes or lesions noted Assessment & Plan Assessment/Plan (1) Malaise and fatigue: PLAN: Plan Patient is 67-year-old male with past medical history significant for remote CVA with residual right upper extremity weakness, carotid disease s/p prior bilateral carotid endarterectomy, CAD s/p CABG, CKD stage III, hypertension and recent discharge 09/10/2022 following a subacute CVA who presented to [facility] on 09/23 with an episode of syncope. Admitted for further management. 1. Syncopal event -Suspect hypovolemia as primary cause. Per patient's , patient has very poor p.o. intake at home. Patient notably had a similar episode 1 week prior to this admission and was found to be very dehydrated at that time. Patient was hypotensive on admission here and notably had TOMMY as below. EKG, chest x-ray, CT head unremarkable. Blood pressure improved with IV fluids. No further episodes of syncope while here. Patient denies any symptoms of orthostasis. Monitor blood pressure. Encourage p.o. fluid intake. 2. History of multiple CVAs, concern for vascular dementia -Patient was recently hospitalized from 09/08 to 09/10 for similar concerns. Presented with progressive generalized weakness, dizziness and fatigue. MRI brain on 09/09 showed a subacute ischemic infarct in the right parietal lobe. Carotid duplex showed critical stenosis of the right ICA. Has previous history of bilateral carotid endarterectomies for severe carotid artery stenosis. Vascular surgery followed on that admission, patient was discharged on antiplatelet therapy in addition to systemic anticoagulation with plans for outpatient follow-up for possible intervention in the future. Patient's states that he lays in bed all day, has very poor p.o. intake and does not take his prescribed medications. When conversing with patient here, he initially seems to be cognitively intact. However, nursing staff notes that patient has h ad significant waxing and waning of his mental status. Patient notably had a flat affect during my conversation. I have concern that patient has worsening vascular dementia that is strongly contributing to his physical decline and medication nonadherence. PT/OT/case management following. Suspect patient will be safe to go home with his on discharge as he has no significant physical limitations. However, I would recommend that patient obtain a complete geriatric evaluation to assess for further needs for him at home going forward. Continue home Xarelto and Brilinta. Continue home atorvastatin. 3. TOMMY on CKD stage III -Creatinine 3.87 on admission. Baseline creatinine appears to be around 2.1. Suspect prerenal TOMMY secondary to poor p.o. intake as noted above. Creatinine improved to 2.82 on 09/24. Patient reports good urine output. Monitor daily BMP and urine output. Encourage p.o. hydration. 4. CAD status post CABG x3 -Continue home Brilinta, Xarelto and statin therapy. Holding home amlodipine, carvedilol, Entresto and doxazosin given hypotension on admission. Restart home medications as needed. DVT prophylaxis: Xarelto CODE STATUS: Full code, verified Expected disposition: Home, 1 to 2 days Total clinical time spent by myself addressing the patient's medical issues, reviewing all the data, and collaborating with patient's care team: 35 minutes. Charges/Coding Visit Charges Inpatient E&M: 33698 Subs Hosp L2
[2022-09-24] MEDS: Atorvastatin Calcium 80 MG Tablet PO (20:48)
[2022-09-25 02:50] VITALS: BP 108/71; PULSE 64; RESP 16; TEMP 36.6; O2SAT 96
[2022-09-25 03:34] VITALS: BMI 25.7
[2022-09-25 06:00] LABS: Anion Gap 7 (5-15); BUN 34 mg/dL (7-18); BUN/Creat Ratio 16.7 RATIO (10-20); Calcium,Total 8.5 mg/dL (8.5-10.1); Chloride 102 mmol/L (98-107); Creatinine, Serum 2.03 mg/dL (0.70-1.30); EST Glomerular Filtration Rate 35 mL/min (>60); Est Glom Filt Rate - Afr Amer 43 mL/min (>60); Estimated Creatinine Clearance 31.56 ml/min; Glucose 96 mg/dL (74-106); Potassium 3.4 mmol/L (3.5-5.1); Sodium Level 133 mmol/L (136-145)
[2022-09-25 07:32] VITALS: O2SAT 98
[2022-09-25 08:39] VITALS: BP 155/58; PULSE 72; RESP 18; TEMP 36.8; O2SAT 100
[2022-09-25] MEDS: Aspirin 81 MG TAB.CHEW PO (08:43)
[2022-09-25] MEDS: DULoxetine Hcl 30 MG Capsule PO ×2 (08:43→20:33)
[2022-09-25] MEDS: Potassium Chloride Oral Tablet 20 MEQ 60 MEQ PO (08:47)
[2022-09-25] MEDS: Ensure Plus High Protein 120 ML LIQUID PO ×2 (08:47→20:33)
--- NOTE | 2022-09-25 08:52 | NURSING ---
pt with continued very flat affect. He is unable to state the year correctly or what type of building he is in, even with several re-orientation attempts. He was found in the [place] at shift change looking for the bathroom. During this assessment, he was able to show this RN where the bathroom was. After taking his pills, he continued to pick imaginary pills out of his hands and swallowing them with imaginary liquid x2.
[2022-09-25 13:34] VITALS: BP 124/84; PULSE 77; RESP 16; TEMP 36.8; O2SAT 98
--- NOTE | 2022-09-25 14:04 | PN.HOSP_ITS ---
Reason for Visit Reason for Visit: Diagnoses Other malaise (09/23/22) Other fatigue (09/23/22) Syncope and collapse (09/23/22) Subjective Subjective Patient seen at bedside this morning. Resting comfortably in bed, no acute distress. Patient reports knowing that he is in [place] but does not know he is at the hospital. He thinks the year is 1992 and that the current president is Donovan. He does know his own name and date of . He denies any acute pain or discomfort. Had extensive discussion with patient's outside the patient's room this afternoon. She states that he has had significant decline in his mental function over the past year and a half. He was previously businessman and very sharp mentally, and he has been nowhere near his baseline mental status for a long time now. She has had to do essentially everything for him around the house and it is becoming quite difficult. Patient does not want to eat or drink on his own. This is manifested in several admissions where the patient has been dehydrated. Patient also does not want to take his home medications. When left on his own, patient lays in bed all day. is very concerned about her ability to take care of the patient going forward. She knows the patient would be very adamant against going to a correction facility or assisted, so she recognizes she will likely need additional help in the form of home health care. She inquired about the possibility of patient qualifying for hospice. Given that patient does not voluntarily eat or drink, seems that patient could potentially have a hospice qualifying diagnosis. Will discuss with case management on steps to take regarding this. Unsure if patient will need further neurology and/or geriatric evaluation in the outpatient setting to help with this. However, does not seem like patient will need these evaluations inpatient prior to discharge. Objective Data Objective Data Vital Signs: Vital Signs Temp Pulse Resp BP Pulse Ox O2 Del Method 98.3 F 77 16 124/84 H 98 Room Air 09/25/22 13:34 09/25/22 13:34 09/25/22 13:34 09/25/22 13:34 09/25/22 13:34 09/25/22 13:34 Oxygen Delivery Method Room Air Weight: 70.2 kg Body Mass Index (BMI) 25.7 Intake & Output: Intake and Output for Last 24 Hours 09/23/22 09/24/2209/25/23 23:59 23:59 23:59 Intake Total 1000 / 1240 2388.33 / 2388.33 120 / 120 Balance 1000 / 1240 2388.33 / 2388.33 120 / 120 Medical Nutrition Assessment Dietitian: Malnutrition Criteria Met Start: 09/24/22 18:29 Freq: Status: Active Protocol: Document 09/24/22 18:30 GALLO (Rec: 09/24/22 18:30 GALLO [id number]) Nutrition Malnutrition Evidence of Malnutrition Exists Yes Malnutrition (moderate): Acute Illness/Injury Evidenced By Suboptimal Energy Intake ( Moderate),Weight Loss (Severe) ,Not Applicable Clinical Problem Acute Disease or Injury Related Malnutrition Etiology related to physiological changes decreasing oral intakes Signs/Symptoms as evidenced by pt report of decreased appetite and oral intakes x 2 weeks with suspected intakes less than or equal to 75% as well as significant weight loss of 5% in 2 weeks based upon 09/09/22 weight of 159lb. Status Active Problem Recommendation Dietitian Recommendations/Changes Continue with Cardiac - Heart Healthy diet 2/2 recent CVA, yet will change Ensure Compact TID to Ensure Plus High Protein 120mL 4x/day with medpass as well as Ensure Plus High Protein with breakfast and Magic Cup w/ dinner to help increase oral intakes. Will continue to monitor oral intakes and modify interventions as needed. Lab / Micro Data Attestation: I reviewed the patient's lab results. 09/24/22 05:25 09/25/22 04:39 Labs: Laboratory Results - last 24 hr 09/25/22 04:39: Sodium 133 L, Potassium 3.4 L, Chloride 102, Carbon Dioxide 24.0, Anion Gap 7, BUN 34 H, Creatinine 2.03 H, Estim Creat Clear Calc 31.56, Est GFR (MDRD) Af Amer 43 L, Est GFR (MDRD) Non-Af 35 L, BUN/Creatinine Ratio 16.7, Glucose 96, Calcium 8.5 Micro: Microbiology 09/23/22 15:00 Nasal Secretion SARS-CoV-2 & FLU Antigen (Rapid) - Final Physical Exam Const alert, no apparent distress and average body habitus Constitutional Narrative: Laying comfortably in bed, conversing normally, mildly flat affect, no acute distress. Alert and oriented x1 to person. Knows he is in [place] but does not know he is in the hospital. Not oriented to time. General Appearance: cooperative and comfortable HEENT normocephalic, head/scalp atraumatic, hearing grossly normal bilaterally, nasal mucous membranes and turbinates normal and moist oral mucous membranes Eyes PERRL, EOMs intact bilaterally and conjunctivae normal Neck full ROM and supple Chest inspection of chest normal Resp normal respiratory effort, normal air movement, no use of accessory muscles and clear to auscultation bilaterally Cardio regular rate, regular rhythm, no murmurs and peripheral pulses 2+ throughout GI normal to inspection, nondistended, normoactive bowel sounds, soft to palpation, non-tender and non-distended Back/Spine normal ROM Extremity normal to inspection, full ROM and no pedal edema Skin no rashes or lesions noted Assessment & Plan Assessment/Plan (1) Vascular dementia: PLAN: Plan Patient is 67-year-old male with past medical history significant for remote CVA with residual right upper extremity weakness, carotid disease s/p prior bilateral carotid endarterectomy, CAD s/p CABG, CKD stage III, hypertension and recent discharge 09/10/2022 following a subacute CVA who presented to [facility] on 09/23 with an episode of syncope. 1. History of multiple CVAs, concern for vascular dementia -Have high concern for worsening vascular dementia given patient's significant history of multiple CVAs and severe vasculopathy, along with 1.5-year history of progressive cognitive decline as reported by patient's . Patient has reportedly followed with neurology outpatient but has never been diagnosed with vascular dementia. Had extensive conversation with patient's on 09/25; please see subjective section from that note. Suspect patient will need further evaluation from neurology and/or geriatrics to determine the extent of his cognitive impairment and his needs at home. Patient will be adamant against being placed in a facility, will likely need to pursue him home health care in some form. Will discuss with case management on possible options for him. Continue home Xarelto, Brilinta and atorvastatin. 2. Syncopal event -Suspect hypovolemia as primary cause. Per patient's , patient has very poor p.o. intake at home. Patient notably had a similar episode 1 week prior to this admission and was found to be very dehydrated at that time. Patient was hypotensive on admission here and notably had TOMMY as below. EKG, chest x-ray, CT head unremarkable. Blood pressure improved with IV fluids. No further episodes of syncope while here. Patient denies any symptoms of orthostasis. Monitor blood pressure. Encourage p.o. fluid intake. 3. TOMMY on CKD stage III, resolved -Creatinine 3.87 on admission. Baseline creatinine appears to be around 2.1. Suspect prerenal TOMMY secondary to poor p.o. intake as noted above. Creatinine improved to 2.03 on 09/25 with IV fluids and improving p.o. intake. No need to monitor BMP further. 4. CAD status post CABG x3 -Continue home Brilinta, Xarelto and statin therapy. Holding home amlodipine, carvedilol, Entresto and doxazosin given hypotension on admission. Restart home medications as needed. DVT prophylaxis: Xarelto CODE STATUS: Full code, verified Expected disposition: Home, 1 to 2 days Total clinical time spent by myself addressing the patient's medical issues, reviewing all the data, and collaborating with patient's care team: 35 minutes. Charges/Coding Visit Charges Inpatient E&M: 78307 Subs Hosp L2
--- NOTE | 2022-09-25 15:01 | PN.HOSP_ITS ---
Reason for Visit Reason for Visit: Diagnoses Vascular dementia, unspecified severity, without behavioral disturbance, psycho tic disturbance, mood disturbance, and anxiety (09/23/22) Other malaise (09/23/22) Other fatigue (09/23/22) Syncope and collapse (09/23/22) Objective Data Objective Data Vital Signs: Vital Signs Temp Pulse Resp BP Pulse Ox O2 Del Method 98.3 F 77 16 124/84 H 98 Room Air 09/25/22 13:34 09/25/22 13:34 09/25/22 13:34 09/25/22 13:34 09/25/22 13:34 09/25/22 13:34 Oxygen Delivery Method Room Air Weight: 70.2 kg Body Mass Index (BMI) 25.7 Intake & Output: Intake and Output for Last 24 Hours 09/23/22 09/24/22 09/25/22 23:59 23:59 23:59 Intake Total 1000 / 1240 2388.33 / 2388.33 120 / 120 Balance 1000 / 1240 2388.33 / 2388.33 120 / 120 Medical Nutrition Assessment Dietitian: Malnutrition Criteria Met Start: 09/24/22 18:29 Freq: Status: Active Protocol: Document 09/24/22 18:30 GALLO (Rec: 09/24/22 18:30 GALLO [id number]) Nutrition Malnutrition Evidence of Malnutrition Exists Yes Malnutrition (moderate): Acute Illness/Injury Evidenced By Suboptimal Energy Intake ( Moderate),Weight Loss (Severe) ,Not Applicable Clinical Problem Acute Disease or Injury Related Malnutrition Etiology related to physiological changes decreasing oral intakes Signs/Symptoms as evidenced by pt report of decreased appetite and oral intakes x 2 weeks with suspected intakes less than or equal to 75% as well as significant weight loss of 5% in 2 weeks based upon 09/09/22 weight of 159lb. Status Active Problem Recommendation Dietitian Recommendations/Changes Continue with Cardiac - Heart Healthy diet 2/2 recent CVA, yet will change Ensure Compact TID to Ensure Plus High Protein 120mL 4x/day with medpass as well as Ensure Plus High Protein with breakfast and Magic Cup w/ dinner to help increase oral intakes. Will continue to monitor oral intakes and modify interventions as needed. Lab / Micro Data 09/24/22 05:25 09/25/22 04:39 Labs: Laboratory Results - last 24 hr 09/25/22 04:39: Sodium 133 L, Potassium 3.4 L, Chloride 102, Carbon Dioxide 24.0, Anion Gap 7, BUN 34 H, Creatinine 2.03 H, Estim Creat Clear Calc 31.56, Est GFR (MDRD) Af Amer 43 L, Est GFR (MDRD) Non-Af 35 L, BUN/Creatinine Ratio 16.7, Glucose 96, Calcium 8.5 Micro: Microbiology 09/23/22 15:00 Nasal Secretion SARS-CoV-2 & FLU Antigen (Rapid) - Final
[2022-09-25] MEDS: Rivaroxaban 20 MG Tablet PO (16:49)
--- NOTE | 2022-09-25 17:49 | NURSING ---
pt called out to say he was bleeding. He had pulled out his IV bc it was stuck to me and was bleeding. pressure held for 5 min then dsd applied. pt now sitting in chair eating his supper.
[2022-09-25] MEDS: Atorvastatin Calcium 80 MG Tablet PO (20:33)
[2022-09-25] MEDS: MELATONIN 3 MG TABLET PO (20:34)
[2022-09-25 20:45] VITALS: BP 130/75; PULSE 66; RESP 18; TEMP 36.6; O2SAT 96
[2022-09-26 03:15] VITALS: BP 128/78; PULSE 72; RESP 18; TEMP 36.5; O2SAT 95
[2022-09-26 05:31] VITALS: BMI 25.2
[2022-09-26] MEDS: DULoxetine Hcl 30 MG Capsule PO (08:28)
[2022-09-26] MEDS: Ensure Plus High Protein 120 ML LIQUID PO (08:28)
[2022-09-26] MEDS: Aspirin 81 MG TAB.CHEW PO (08:28)
[2022-09-26 09:00] VITALS: BP 132/67; PULSE 76; RESP 16; TEMP 36.6; O2SAT 97
--- NOTE | 2022-09-26 13:59 | CASEMGMT ---
Addendum entered by Rea Pelletier 09/26/22 16:32: [facility] is able to accept patient and working on start of care date for patient. EFREM ALDRICH requested [facility] call with start of care date. Original Note: EFREM ALDRICH in to discuss needs with patient at discharge. Patient and at bedside, EFREM ALDRICH discuss HHC. Patient and agreeable to C and prefer [facility]. EFREM ALDRICH discussed palliative care with patient and , requesting additional information. Information pamphlet provided to . EFREM ALDRICH made referral to [facility], awaiting call back. CM will continue to follow this patient and plan for a safe discharge.
[2022-09-26 15:00] VITALS: BP 121/66; PULSE 74; RESP 16; TEMP 36.8; O2SAT 98
--- NOTE | 2022-09-26 15:48 | PCM.DC ---
Discharge Instructions Diet Discharge Diet: No restrictions Activity Discharge Activity: Return to Normal Activity Weight Bearing Status: Full weight bearing Follow Up Care Please Follow Up With: Jn Worthington MD When: 1-2 weeks Test Results: Test results from this visit will be discussed in further detail at your follow-up appointment, if applicable. Pending Tests Upon Discharge: none Discharge Plan Admission Admit Date/Time: 09/23/22 21:46 Primary Reason for Your Visit: Syncope Attending Provider: Syed Nelson Primary Care Provider: Jn Worthington Consulting Providers: Kimberly Baumann Instructions Additional Instructions / Restrictions: Home health care will come out to the home to assess patient's needs at home. Recommend discussing with primary care provider need for an evaluation from palliative care and/or geriatric medicine. Also recommend discussing with neurology if any further options are available. We have STOPPED all of Don's blood pressure medications, given that his blood pressures have been low recently. Recommend following up with his PCP, who can recheck his blood pressure and restart any medications as needed. Discharge Orders/Prescriptions Prescriptions: Continued cholecalciferol (vitamin D3) 50 mcg (2,000 unit) capsule 50 mcg PO DAILY duloxetine 30 mg capsule,delayed release(DR/EC) 30 mg PO BID Qty: 180 3RF aspirin 81 MG tablet,chewable 81 mg PO DAILY@0800 0RF ondansetron 4 mg tablet,disintegrating 4 mg PO Q8H PRN PRN (Reason: Nausea) Qty: 10 0RF atorvastatin 80 mg Tablet 80 mg PO QHS Qty: 30 0RF Xarelto 20 mg tablet 20 mg PO DAILY Qty: 30 0RF Rx Instructions: must administer with evening meal Discontinued amlodipine 10 mg tablet 10 mg PO DAILY Qty: 90 3RF doxazosin 4 mg tablet 2 mg PO QHS Brilinta 90 mg tablet 90 mg PO BID Qty: 60 1RF Hold Instructions: to have surgery hydrochlorothiazide 25 mg Tablet 25 mg PO DAILY Qty: 30 0RF carvedilol 25 mg tablet 25 mg PO BID Qty: 180 3RF Rx Instructions: must administer with a meal/food Entresto 49-51 mg tablet 1 tab PO BID Qty: 60 11RF Referrals / Follow Up: Jn Worthington MD [Primary Care Provider] - Disposition Disposition (needs filled in before D/C Order can be placed): Home Health Service
--- NOTE | 2022-09-26 15:55 | PCM.DC.SUM ---
Providers Date of Admission: 09/23/22 Date of Discharge: 09/26/22 Primary Care Physician: Dr. Jn Worthington MD Reason For Visit: SYNCOPE, TOMMY, DEHYDRATION Diagnosis Discharge Diagnosis (1) Vascular dementia: Status: Acute Code(s): F01.50 - Vascular dementia, unspecified severity, without behavioral disturbance, psychotic disturbance, mood disturbance, and anxiety Medications at Discharge Home Medications aspirin 81 mg chewable tablet 81 mg PO DAILY@0800 asparin 10/23/18 cholecalciferol (vitamin D3) 50 mcg (2,000 unit) capsule 50 mcg PO DAILY vitamin 10/08/19 duloxetine 30 mg capsule,delayed release 30 mg PO BID depression #180 caps 08/04/21 atorvastatin 80 mg tablet 80 mg PO QHS #30 tabs 09/10/22 rivaroxaban 20 mg tablet (Xarelto) 20 mg PO DAILY #30 tabs 09/10/22 ondansetron 4 mg disintegrating tablet 4 mg PO Q8H PRN PRN Nausea #10 tabs 09/14/22 Hospital Course Procedures - (CT head without contrast, chest x-ray) Summary of Care Provided Minutes Spent on Discharge: 38 Hospital Course: Patient is 67-year-old male with past medical history significant for remote CVA with residual right upper extremity weakness, carotid disease s/p prior bilateral carotid endarterectomy, CAD s/p CABG, CKD stage III, hypertension and recent discharge 09/10/2022 following a subacute CVA who presented to [facility] on 09/23 with an episode of syncope. On admission reported that patient had had significant fatigue, malaise and decreased appetite with decreased oral intake prior to his episode of syncope that brought him in. She noted that he has had similar episodes to this in the past. Patient was found to be significantly dehydrated on admission. Labs were consistent with significant hypovolemia, including a creatinine of 3.87 on admission (baseline creatinine around 2.0). Patient had significant improvement with volume resuscitation. Despite good clinical improvement, patient remained alert and oriented x1 during this hospitalization. He appeared very comfortable laying in bed most days, however he was unaware that he was in the hospital and he consistently said the year was in the early 90s. Patient's was able to help with further history. She noted that the patient had had consistent cognitive decline for the last 1.5 years. Patient was formerly a businessman with a sharp mind. However, patient has notably had multiple strokes and severe carotid disease requiring bilateral endarterectomies as noted above. She stated that the patient essentially laid in bed all day at home and did not eat, drink or take his medications without prompting from her. He continues to have good physical functioning and had good PT/OT scores while here. Given this history, we had strong concern that patient has fairly severe vascular dementia by this time. Patient has follow-up with neurology in the office, but it appears that this diagnosis has never been made. Patient has never seen an outpatient business analyst intern or had a cognitive evaluation. On further discussion with patient's , agreement was made to discharge patient home with home health care, with plans to discuss consultations with both geriatrics and palliative care going forward. Patient notably had normal to low blood pressures while hospitalized, and we did not continue any of his home antihypertensives. Unclear as to why patient continued to have lower blood pressures even after adequate fluid resuscitation. All home antihypertensives were held on discharge. Recommended that patient follow-up with his PCP and his antihypertensives can be restarted as needed. Patient was discharged home with his in stable condition. Discharge diagnoses: Syncope Severe dehydration, resolved Vascular dementia TOMMY on CKD, resolved Hyponatremia and hypochloremia, resolved History of multiple CVAs CAD s/p CABG Anxiety and depression Hypertension Hyperlipidemia Former tobacco use Total clinical time spent by myself addressing patient's discharge needs: 38 minutes Physical Exam Const alert, no apparent distress and average body habitus Constitutional Narrative: Laying comfortably in bed, conversing normally, mildly flat affect, no acute distress. Alert and oriented x1 to person. Knows he is in [place] but does not know he is in the hospital. Not oriented to time. General Appearance: cooperative and comfortable HEENT normocephalic, head/scalp atraumatic, hearing grossly normal bilaterally, nasal mucous membranes and turbinates normal and moist oral mucous membranes Eyes PERRL, EOMs intact bilaterally and conjunctivae normal Neck full ROM and supple Chest inspection of chest normal Resp normal respiratory effort, normal air movement, no use of accessory muscles and clear to auscultation bilaterally Cardio regular rate, regular rhythm, no murmurs and peripheral pulses 2+ throughout GI normal to inspection, nondistended, normoactive bowel sounds, soft to palpation, non-tender and non-distended Back/Spine normal ROM Extremity normal to inspection, full ROM and no pedal edema Skin no rashes or lesions noted Medical Records Data Medical Nutrition Assessment Dietitian: Malnutrition Criteria Met Start: 09/24/22 18:29 Freq: Status: Active Protocol: Document 09/24/22 18:30 GALLO (Rec: 09/24/22 18:30 GALLO [id number]) Nutrition Malnutrition Evidence of Malnutrition Exists Yes Malnutrition (moderate): Acute Illness/Injury Evidenced By Suboptimal Energy Intake ( Moderate),Weight Loss (Severe) ,Not Applicable Clinical Problem Acute Disease or Injury Related Malnutrition Etiology related to physiological changes decreasing oral intakes Signs/Symptoms as evidenced by pt report of decreased appetite and oral intakes x 2 weeks with suspected intakes less than or equal to 75% as well as significant weight loss of 5% in 2 weeks based upon 09/09/22 weight of 159lb. Status Active Problem Recommendation Dietitian Recommendations/Changes Continue with Cardiac - Heart Healthy diet 2/2 recent CVA, yet will change Ensure Compact TID to Ensure Plus High Protein 120mL 4x/day with medpass as well as Ensure Plus High Protein with breakfast and Magic Cup w/ dinner to help increase oral intakes. Will continue to monitor oral intakes and modify interventions as needed. Weight / BMI Weight Weight: 68.9 kg Body Mass Index (BMI) 25.2 ABG / Lab / Microbiology Data 09/24/22 05:25 09/25/22 04:39 Microbiology: Microbiology 09/23/22 15:00 Nasal Secretion SARS-CoV-2 & FLU Antigen (Rapid) - Final D/C Instructions Discharge Diet: No restrictions Weight Bearing Status: Full weight bearing Pending Tests Upon Discharge: none Please Follow Up With: Jn Worthington MD When: 1-2 weeks Meaningful Use Info Meaningful Use Diagnoses (Choose all that apply): None applicable Discharge Plan Admission Admit Date/Time: 09/23/22 21:46 Primary Reason for Your Visit: Syncope Attending Provider: Syed Nelson Primary Care Provider: Jn Worthington Consulting Providers: Kimberly Baumann Instructions Additional Instructions / Restrictions: Home health care will come out to the home to assess patient's needs at home. Recommend discussing with primary care provider need for an evaluation from palliative care and/or geriatric medicine. Also recommend discussing with neurology if any further options are available. We have STOPPED all of Don's blood pressure medications, given that his blood pressures have been low recently. Recommend following up with his PCP, who can recheck his blood pressure and restart any medications as needed. Discharge Orders/Prescriptions Prescriptions: Continued cholecalciferol (vitamin D3) 50 mcg (2,000 unit) capsule 50 mcg PO DAILY duloxetine 30 mg capsule,delayed release(DR/EC) 30 mg PO BID Qty: 180 3RF aspirin 81 MG tablet,chewable 81 mg PO DAILY@0800 0RF ondansetron 4 mg tablet,disintegrating 4 mg PO Q8H PRN PRN (Reason: Nausea) Qty: 10 0RF atorvastatin 80 mg Tablet 80 mg PO QHS Qty: 30 0RF Xarelto 20 mg tablet 20 mg PO DAILY Qty: 30 0RF Rx Instructions: must administer with evening meal Discontinued amlodipine 10 mg tablet 10 mg PO DAILY Qty: 90 3RF doxazosin 4 mg tablet 2 mg PO QHS Brilinta 90 mg tablet 90 mg PO BID Qty: 60 1RF Hold Instructions: to have surgery hydrochlorothiazide 25 mg Tablet 25 mg PO DAILY Qty: 30 0RF carvedilol 25 mg tablet 25 mg PO BID Qty: 180 3RF Rx Instructions: must administer with a meal/food Entresto 49-51 mg tablet 1 tab PO BID Qty: 60 11RF Referrals / Follow Up: Jn Worthington MD [Primary Care Provider] - Disposition Disposition (needs filled in before D/C Order can be placed): Home Health Service Charges/Coding Visit Charges Inpatient E&M: 42452 Disch Hosp >30min
[2022-09-26] MEDS: Rivaroxaban 20 MG Tablet PO (16:14)
== END 2022-09-26 17:04 | disposition home health service (06) | DRG 683 ==
LOC: ED 21:49 → PCU 21:59
PROVIDERS: Admitting Provider Family Medicine; Emergency Provider Emergency Medicine; PCP Internal Medicine; Visit Provider Hospitalist
DX: N17.9 Acute kidney failure, unspecified (principal); E44.0 Moderate protein-calorie malnutrition; E87.1 Hypo-osmolality and hyponatremia; F01.50 Vascular dementia, unspecified severity, without behavioral disturbance, psychotic disturbance, mood disturbance, and anxiety; E87.8 Other disorders of electrolyte and fluid balance, not elsewhere classified; N18.30 Chronic kidney disease, stage 3 unspecified; I69.331 Monoplegia of upper limb following cerebral infarction affecting right dominant side; F32.A Depression, unspecified; I12.9 Hypertensive chronic kidney disease with stage 1 through stage 4 chronic kidney disease, or unspecified chronic kidney disease; E86.1 Hypovolemia; I25.5 Ischemic cardiomyopathy; E86.0 Dehydration; I25.10 Atherosclerotic heart disease of native coronary artery without angina pectoris; E78.5 Hyperlipidemia, unspecified; F41.9 Anxiety disorder, unspecified; Z87.891 Personal history of nicotine dependence; Z79.02 Long term (current) use of antithrombotics/antiplatelets; R55 Syncope and collapse; Z79.01 Long term (current) use of anticoagulants; Z68.25 Body mass index [BMI] 25.0-25.9, adult; Z95.1 Presence of aortocoronary bypass graft
CPT/HCPCS: 36415; 70450; 71045; 80048; 80053; 81001; 83605; 83735; 84484; 85025; 85379; 85610; 85730; 87428; 93005; 94668; 97110; 97161; 97166; 97535; 97802; 97803; 99285; J7030; J7040; A4216

== ENCOUNTER → 2022-10-07 | Outpatient (CLI) | payer MEDICARE, SELFPAY ==
[2022-10-07 12:33] LABS: Anion Gap 4 (5-15); BUN 15 mg/dL (7-18); BUN/Creat Ratio 9.8 RATIO (10-20); Calcium,Total 9.1 mg/dL (8.5-10.1); Chloride 101 mmol/L (98-107); Creatinine, Serum 1.53 mg/dL (0.70-1.30); EST Glomerular Filtration Rate 49 mL/min (>60); Est Glom Filt Rate - Afr Amer 59 mL/min (>60); Glucose 128 mg/dL (74-106); Sodium Level 135 mmol/L (136-145)
== END | disposition home or self-care (01) ==
LOC: BIMLAB 09:29
PROVIDERS: PCP Internal Medicine; Referring Provider Internal Medicine; Visit Provider Internal Medicine
DX: I10 Essential (primary) hypertension (principal)
CPT/HCPCS: 36415; 80048

== ENCOUNTER → 2022-10-11 | Outpatient (CLI) | payer MEDICARE, SELFPAY ==
--- NOTE | 2022-10-11 15:07 | STRESSREP ---
Stress Test Report Date: 10/11/2022 Procedure: Pharmacologic stress nuclear imaging study Indications: Preoperative evaluation Consent: Per the patient Procedure: The patient underwent pharmacologic (Regadenoson) evaluation with a peak heart rate of 123 beats per minute (79%predicted maximal heart rate) and a peak blood pressure of 162/102 mmHg. The baseline ECG demonstrated normal sinus rhythm with nonspecific ST-T changes. EKG during lexiscan infusion revealed no significant ischemic changes. EKG post infusion revealed no significant ischemic changes [There were no cardiac dysrhythmias pretest, during pharmacologic infusion, or recovery]. [There was no complaint of chest discomfort during pharmacologic infusion or recovery]. The examination was discontinued secondary to completion of protocol. Impression: 1. Lexiscan stress test test is negative for Lexiscan infusion induced EKG changes of ischemia. 2. Lexiscan stress test test is negative for Lexiscan infusion induced chest pain. 3. Results of the nuclear portion of the test is as below Myocardial perfusion imaging study: Technique: The patient was injected with 10.4 millicuries of technetium 99m Cardiolite and subsequently rest SPECT Cardiolite nuclear imaging was obtained in the horizontal long, vertical long, and short axis views. The patient underwent pharmacologic [Regadenoson 0.4mg] evaluation. Please see above for details. The patient was injected with 33.6 millicuries of technetium 99m Cardiolite and subsequently stress SPECT Cardiolite nuclear imaging was obtained in the horizontal long, vertical long, and short axis views. A gated Cardiolite study at peak stress was obtained. Interpretation: Rest and stress SPECT Cardiolite nuclear imaging status post realignment, normalization, and attenuation correction demonstrate mild to moderate decrease in the radioisotope uptake in the inferior apical wall at rest that is worse on stress imaging. There is also moderate decrease in the radioisotope uptake in the inferolateral and apical segments and the stress images. These findings are suggestive of prior inferior infarction with ischemia involving the inferior apical, inferolateral and apical segments. Gated images reveal hypokinesis of the septum and inferior wall. The reported LVEF is 45%. Impression: 1. There is evidence of mild to moderate ischemia involving the inferolateral, inferoapical and apical segments. There is evidence of prior inferior myocardial infarction. 2. Estimated ejection fraction is 45%. This note was generated with [employer] software. It may contain incorrect words, spelling, and punctuation that were not noted in checking the note before signing.
== END | disposition home or self-care (01) ==
PROVIDERS: PCP Internal Medicine; Referring Provider Nurse Practitioner Gerontology; Visit Provider Nurse Practitioner Gerontology
DX: Z01.810 Encounter for preprocedural cardiovascular examination (principal); Z95.1 Presence of aortocoronary bypass graft; I25.2 Old myocardial infarction
CPT/HCPCS: 78452; 93017; A9500; A4216; J2785

== ENCOUNTER 2022-10-18 11:33 | Inpatient (IN) | payer MEDICARE, SELFPAY ==
[2022-10-18] VITALS (21 sets, daily range): BP systolic 79–161; BP diastolic 53–89; PULSE 70–104; RESP 10–18; TEMP 36.6–36.9; O2SAT 88–100; BMI 25.3; BMI 25.4
[2022-10-18] MEDS: Lactated Ringers 1,000 ML 15 ML IV (07:05)
--- NOTE | 2022-10-18 07:24 | HP.PCM_ITS ---
History and Physical Allergies codeine Adverse Reaction (Verified 10/05/22 14:32) Upset Stomach Medications aspirin 81 mg chewable tablet 81 mg PO DAILY@0800 asparin 10/23/18 [Rx Confirmed 10/05/22] cholecalciferol (vitamin D3) 50 mcg (2,000 unit) capsule 50 mcg PO DAILY vitamin 10/08/19 [History Confirmed 10/05/22] duloxetine 30 mg capsule,delayed release 30 mg PO BID depression #180 caps 08/04/21 [Rx Confirmed 10/05/22] atorvastatin 80 mg tablet 80 mg PO QHS #30 tabs 09/10/22 [Rx Confirmed 10/05/22] rivaroxaban 20 mg tablet (Xarelto) 20 mg PO DAILY #30 tabs 09/10/22 [Rx Confirmed 10/05/22] ondansetron 4 mg disintegrating tablet 4 mg PO PRN NAUSEA 10/04/22 [History Confirmed 10/05/22] ticagrelor 90 mg tablet (Brilinta) 90 mg PO BID #60 tabs 10/06/22 [Rx Confirmed 10/06/22] PFSH Medical History Atherosclerosis of coronary artery of [place] heart without angina pectoris Back pain BPH (benign prostatic hyperplasia) [facility] Cardiology follow-up encounter CKD (chronic kidney disease) CVA (cerebrovascular accident) Depression Elevated PSA, less than 10 ng/ml Erectile dysfunction Essential (primary) hypertension Facial paresthesia Former smoker Heartburn High cholesterol History of diverticulitis History of echocardiogram History of edema History of myocardial infarction HLD (hyperlipidemia) Ischemic cardiomyopathy Left ventricular diastolic dysfunction Leg cramps Nonrheumatic mitral (valve) insufficiency Secondary pulmonary arterial hypertension Shortness of breath on exertion Stenosis of right carotid artery Syncope Wears dentures Wears glasses Surgical History H/O coronary artery bypass surgery (2013) History of colonoscopy History of left heart catheterization (10/22/18) History of prostate biopsy History of right-sided carotid endarterectomy (2010) Hx of angioplasty Hx of CABG Hx of oral surgery Hx of tonsillectomy Family History Father Heart disease AlcoholismBrother AlcoholismGrandfather Heart disease Social History housing: house Smoking Status: Former smoker Tobacco: How many years used: 35 alcohol intake: never substance use type: does not use what type of physical activity do you participate in: walking frequency: daily HPI HPI HPI: ДМИТРИЙ BOJORQUEZ, is a 67 M who presents to the office today to reassess after recent hospitalization and discuss upcoming TCAR. There was some concern during and immediately following hospitalization from 09/23-09/26 that the surgery may need to be delayed. He was hospitalized after 2 syncopal episodes, ultimately determined to be secondary to dehydration/hypovolemia. reported that leading up to that hospitalization he was not eating or drinking well at home, has been more depressed in mood and with increased confusion. He improved significantly with volume resuscitation though still with confusion, there is concern this is vascular dementia. Since discharge, reports he has been eating and drinking better at home, no further syncopal events. Physically, he seems to be improved and stable. We had also put in referrals for both neurology and geriatrics at 's request. He has an upcoming appointment with Dr. Loza, no appointment with neurology yet. ROS General General: Yes weight change and fatigue; No appetite, colon cancer, breast cancer or weakness HEENT HEENT: No difficulty swallowing, eye injury, eye surgery, swollen glands or hoarseness Endo Endocrine: No thyroid disease, diabetes mellitus, thyroid cancer, Hair loss, heat intolerance or cold intolerance Skin Skin: No rash or changing moles Musc Musculoskeletal: Yes back problems; No arthritis, rheumatoid arthritis, gout or joint pain Cardio Cardiovascular: Yes heart disease, high blood pressure, heart attack and heart stent; No murmur, pacemaker, atrial fibrillation, palpitations, shortness of breat with exertion or chest pain Psych Psychiatric: Yes depression; No anxiety or hearing voices Resp Respiratory: No shortness of breath, Yes sleep apnea, No cough, No COPD, No asthma, No emphysema and No wheezing Gastro Gastrointestinal: No abdominal pain, Yes nausea or vomiting, No diarrhea, No constipation, No blood in stool, Yes acid reflux, No hemorrhoids, No ulcers, No gallbladder problem and No black,tarry stools Natanael Hematologic: Yes blood thinners, No blood disorders, No bleeding, No anemia and No blood clots Neuro Neurologic: No system reviewed and no additional complaints, except as documented, No as per HPI, No abnormal gait, No abnormal hearing, No abnormal movements, No abnormal speech, No behavioral changes, No burning sensations, Yes confusion, No convulsions, No disequilibrium, No dizziness, No localized weakness, No frequent falls, No headache(s), No lack of coordination, No loss of vision, No memory loss, No numbness, No other visual disturbances, No radicular pain, No restless legs, No sensory deficit, No syncope, No tingling, No tremor(s), No weakness and No other Exam Const General: cooperative, healthy appearing, comfortable, no acute distress and well developed Nutritional Appearance: well nourished Orientation: alert, awake and oriented x3 HENMT Head: normocephalic and atraumatic Ears: hearing grossly normal bilaterally Nose: external nose normal Eyes General: appearance normal, both eyes and all related structures EOM: EOM intact bilaterally Neck Neck: normal visual inspection, full ROM, no lymphadenopathy and trachea midline Thyroid: thyroid normal Lymphatic: no lymphadenopathy noted Resp Effort & Inspection: normal respiratory effort, able to speak in complete sentences, symmetric chest movement, no audible wheezes, not labored, no stridor and no use of accessory muscles Auscultation: clear to auscultation bilaterally Cardio Rate: regular rate Rhythm: regular rhythm Heart Sounds: no murmurs Bruits: no carotid bruits Pulses: brachial pulses present Skin General: no rashes or lesions noted and no erythema Wounds: no wounds Neuro Cranial Nerves: CN's II-XI intact bilaterally and EOM intact bilaterally Speech: speech normal Gait: normal gait Motor: strength 5/5 throughout Sensory Exam: no sensory deficits noted Extremities Pulses: Diminished: Right Radial Pulse and Absent: Right Dorsalis Pedis Pulse, Left Dorsalis Pedis Pulse, Right Posterior Tibial Pulse, Left Posterior Tibial Pulse and Left Radial Pulse Lower Extremity Edema: None: Bilateral Psych Appearance: grossly normal and well kempt Mental Status: mental status grossly normal Mood: congruent mood Speech and Movement: speech and movement normal Thought Content: normal Judgment: judgment good Coding Level of Care Code Off vis,est,level 2 Diagnoses Bilateral carotid artery stenosis I65.23 Laterality: bilateral Assessment and Plan Assessment and Plan (1) Carotid artery stenosis: Status: Chronic Qualifiers: Laterality: bilateral Qualified Code(s): I65.23 - Occlusion and stenosis of bilateral carotid arteries Comment: CTA- images reviewed right ICA with 84% stenosis, bulb 16 mm with voluminous irregular soft plaque left ICA with 77% stenosis, voluminous irregular soft plaque Plan: right TCAR
--- NOTE | 2022-10-18 11:38 | OP.PCM_ITS ---
Report of Operation Date of Procedure: 10/18/22 Pre-Operative Diagnosis: symptomatic right carotid stenosis Post-Operative Diagnosis: same Surgery/Procedure Performed:: right carotid stent (TCAR) Surgeon: Jerrod Coronado Type of Anesthesia: General Drains: 15 Fr ZOHRA Estimated Blood Loss (mL): 30 Description of Procedure: HPI: Patient is a 67-year-old male who initially presented with nonspecific neurologic symptoms and was worked up for stroke. He had an MRI which revealed a right hemispheric subacute infarct and a CTA which revealed an 84% stenosis of his internal carotid artery. He previously had undergone a right carotid endarterectomy in 2010 for symptomatic disease. The CT also revealed a left internal carotid artery stenosis of 77%, with no previous history of carotid endarterectomy. Of note his duplex did not reveal minimally elevated velocities on the left, and the right velocities were at the low end of 70-99. Given the convincing imaging from CTA is taken now for right carotid artery stent with plans for left carotid endarterectomy at a later time. Description of procedure: Upon obtaining informed consent and verification correct patient procedure site the patient was taken to the Building Inspector where he was placed under general anesthesia. Given difficulties obtaining upper extremity arterial lines for blood pressure monitoring a left femoral arterial line was placed on ultrasound guidance. The patient was then positioned prepped and draped in usual sterile fashion and timeout was performed. His previous carotid endarterectomy incision was very lengthy and nearly went to the clavicle so we decided to utilize a longitudinal incision starting at the inferior aspect of the prior incision. This was then extended down to just above the clavicle and Bovie likewise dissect down through subcutaneous tissue down to the level of platysma. The platysma was then divided and self-retaining retractors put in position. Further dissection carried down to the sternocleidomastoid which was freed along its medial border and allowed to retract laterally. At this point we visualize the jugular vein which was dissected free along its medial border dissected laterally. Sharp dissection used to dissect free the common carotid artery and a right angle used to place a vessel loop proximally. A U stitch with 5-0 Prolene was then placed and the patient was heparinized and heparin redosing performed based on serial ACT results. Next under ultrasound guidance the right common femoral vein was accessed in retrograde fashion with micropuncture needle wire. This was exchanged out for micropuncture sheath through which a Bentson wire is advanced and the micropuncture sheath exchanged out for 88 [place] sheath of the flow reversal filtration system. Once adequate ACT was obtained the common carotid artery was accessed in antegrade fashion with a micropuncture needle wire. This was exchanged out for micropuncture sheath through which hand-injection carotid angiogram performed which revealed the position of the carotid bifurcation and the proximal extent of the lesion. The starter J-wire was then advanced in position and stopped short of the lesion after which the micropuncture sheath was exchanged for the [address] sheath. This was then advanced into position, the dilator withdrawn, and the sh eath secured with suture. Oblique subtraction angiography images were obtained which confirmed satisfactory position with no interface with the vessel wall. Next the flow reversal system was put into place and confirmed to be functioning. The common carotid artery proximal to the access site was then clamped and the guidewire advanced traversing the lesion into the internal carotid artery. A 5 x 35 angioplasty balloon was then advanced in the position and inflated to nominal to predilate the lesion. Given the length of lesion 2 separate inflations was required to totally cover the length of disease. The balloon was then withdrawn and first a [address] en route stent was advanced in position and deployed. A second 9 x 30 stent was then advanced the position and deployed with complete coverage of the lesion in the predilated segment. Repeat angiography revealed brisk contrast transit with no residual stenosis, no dissection, no extravasation and no evidence of any soft plaque or thrombus extruding through the stents. After sufficient length of flow reversal filtration had been achieved the clamp clamp was removed and further back flushed through the filtration system performed after which the tubing was detached and blood returned via the femoral vein. The femoral access sheath was then withdrawn and manual pressure held after which satisfactory stasis was noted. The Prolene suture in the carotid was then secured as the sheath was withdrawn with satisfactory stasis noted. This for a bit of ooze from multiple surfaces in the neck incision so Floseal topical hemostatic was placed deep in the wound and Surgicel in the shallow aspect of the wound. A [address] ZOHRA was then placed via separate stab incision and placed beneath the platysma. The platysma was then closed with 3-0 Vicryl running suture followed by 4 Monocryl and Dermabond for the skin. At the conclusion of the case patient was awakened anesthesia moving all extremities to command. He was then taken to the intensive care unit for hemodynamic and neurologic monitoring.
[2022-10-18] MEDS: Nitro/D5w 25MG/250ML Bottle 25 MG (11:50)
[2022-10-18] MEDS: 0.45% Normal Saline 1,000 ML 100 ML IV ×2 (12:12→22:40)
[2022-10-18] MEDS: TICAGRELOR 90 MG TABLET PO ×2 (13:06→21:32)
[2022-10-18] MEDS: Acetaminophen 500 MG Tablet 1000 MG PO ×2 (13:06→21:31)
[2022-10-18] MEDS: Cefazolin 1 GM/50 ML BAG IV (19:59)
[2022-10-18] MEDS: Labetalol (Prefilled) 20 MG/4 ML 10 MG IV (20:02)
[2022-10-18] MEDS: Carvedilol 6.25 MG Tablet PO (21:32)
[2022-10-18] MEDS: DULoxetine Hcl 30 MG Capsule PO (21:32)
[2022-10-18] MEDS: Atorvastatin Calcium 80 MG Tablet PO (21:32)
[2022-10-18] MEDS: oxyCODONE 5 MG Tablet PO (22:40)
[2022-10-18] MEDS: Tamsulosin HCl 0.4 MG Capsule PO (22:40)
[2022-10-19] VITALS (16 sets, daily range): BP systolic 120–148; BP diastolic 58–91; PULSE 74–90; RESP 14–23; TEMP 36.5–36.8; O2SAT 94–100; BMI 26.9
[2022-10-19] MEDS: Labetalol (Prefilled) 20 MG/4 ML 10 MG IV (01:11)
[2022-10-19] MEDS: HYDROmorphone Inj 0.2 MG/ML SYRINGE IV (01:12)
[2022-10-19 04:54] LABS: Absolute Lymphocyte Count 0.55 X10^3/uL (0.83-4.51); Absolute Neutrophil Count 10.3 X10^3/uL (2.0-7.7); Basophil# 0.01 X10^3/uL; Basophil% 0.1 % (0-1); Differential Indicated SCAN CRITERIA MET; Hematocrit 35.4 % (40-54); Hemoglobin 11.8 g/dL (13.0-16.5); Lymphocyte # 0.55 X10^3/ul (0.83-4.51); Lymphocyte % 4.7 % (19-41); Mean Corp Hgb Conc 33.3 g/dL (32-36); Mean Corpuscular Hgb 28.9 pg (27.0-32.0); Mean Corpuscular Volume 86.6 fL (80-94); Mean Platelet Vol. 9.9 fl (6.2-12.0); Monocyte# 0.75 X10^3/uL; Monocyte% 6.4 % (0-10); NRBC Flagged by Analyzer 0 % (0-5); Neutrophil # 10.31 X10^3/uL (2.7-7.7); Neutrophil % 88.2 % (47-70); POSITIVE DIFFERENTIAL YES; Platelet Count 297 K/mm3 (150-450); RBC Distribution Width CV 13.3 % (11.6-14.6); RBC Distribution Width SD 41.7 fl (35.1-43.9); Red Blood Count 4.09 M/mm3 (4.6-6.2); White Blood Count 11.7 K/mm3 (4.4-11.0)
[2022-10-19] MEDS: Cefazolin 1 GM/50 ML BAG IV (05:23)
[2022-10-19] MEDS: Acetaminophen 500 MG Tablet 1000 MG PO (05:23)
[2022-10-19] MEDS: Carvedilol 6.25 MG Tablet PO (07:59)
[2022-10-19] MEDS: amLODIPine 10 MG Tablet PO (07:59)
[2022-10-19] MEDS: TICAGRELOR 90 MG TABLET PO (07:59)
[2022-10-19] MEDS: Enoxaparin 40 MG/0.4 ML Syringe SC (07:59)
[2022-10-19] MEDS: Aspirin 81 MG TAB.CHEW PO (07:59)
[2022-10-19] MEDS: Cholecalciferol (VIT D3) 25 MCG TABLET (1,000 UNITS) 50 MCG PO (07:59)
[2022-10-19] MEDS: DULoxetine Hcl 30 MG Capsule PO (07:59)
[2022-10-19 09:04] LABS: ACT Activated Clotting Time 329 sec (74-137)
[2022-10-19 09:04] LABS: ACT Activated Clotting Time 395 sec (74-137)
--- NOTE | 2022-10-19 10:50 | CASEMGMT ---
EFREM ALDRICH Assessment: Face to Face with pt for initial transition planning/care coordination assessment. RN ELINOR introduced self and role at [facility], pt voices understanding and consents to assessment. Pt is A/O x4 and answers all questions appropriately at this time. Pt lying in bed in no distress. Care providers, pharmacy, and demographics verified/updated. 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 Pt reports he is I in ADL's and denies concerns at home. Transportation: Pt drives self and denies concerns with transportation. is able to transport pt if needed. DME/HHC/SNF: Pt does not use DME but states he has access to it. Pt reports being active with [facility] and would like them to resume upon dc. He states a nurse from his insurance also comes to visit monthly. Pt denies need for a list of other options for agencies for HHC. Pt denies SNF stays. Pt states no concerns with going home at time of dc. Pt states no further concerns/needs. CM to follow. Advised pt to ask CM if any further question/concerns/needs arise, voices understanding. Pt Goal: Home with HHC Plan: Home with HHC
--- NOTE | 2022-10-19 13:25 | PCM.PN.SRG ---
Subjective Subjective Patient is doing well this morning, in good spirits. He has been up to chair and ambulating without difficulty. Sykes was removed this morning and he was able to urinate. Pain is well controlled. Tolerating diet. He has been hemodynamically stable. He denies headache, vision changes, focal motor weakness or sensory deficits. No pain/issues at the femoral access site. ZOHRA drain with minimal output this morning. Objective Data Objective Data Vital Signs: Vital Signs Temp Pulse Resp BP Pulse Ox O2 Del Method O2 Flow Rate 97.7 F L 88 16 127/88 H 98 Room Air 2 10/19/22 12:00 10/19/22 13:00 10/19/22 13:00 10/19/22 13:00 10/19/22 13:00 10/19/22 13:00 10/18/22 19:47 Oxygen Flow Rate (L/min) 2 Oxygen Delivery Method Room Air Weight: 161 lb 6.054 oz Body Mass Index (BMI) 26.9 Intake & Output: Intake and Output for Last 24 Hours 10/17/22 10/18/22 10/19/22 23:59 23:59 23:59 Intake Total 1050 / 1050 1200 / 1200 Output Total 720 / 720 Balance 1050 / 1050 480 / 480 Lab / Micro Data 10/19/22 04:45 Labs: Laboratory Results - last 24 hr 10/18/22 09:20: Activated Clotting Time 395 H 10/18/22 09:50: Activated Clotting Time 329 H 10/19/22 04:45: WBC 11.7 H, RBC 4.09 L, Hgb 11.8 L, Hct 35.4 L, MCV 86.6, MCH 28.9, MCHC 33.3, RDW Std Deviation 41.7, RDW Coeff of [place] 13.3, Plt Count 297, MPV 9.9, Immature Gran % (Auto) 0.600, Neut % (Auto) 88.2 H, Lymph % (Auto) 4.7 L, [place] % (Auto) 6.4, Eos % (Auto) 0.0, Baso % (Auto) 0.1, Absolute Neuts (auto) 10.3 H, Absolute Lymphs (auto) 0.55 L, Nucleated RBC % 0 Physical Exam Const alert, oriented x3 and no apparent distress General Appearance: cooperative and comfortable HEENT normocephalic, head/scalp atraumatic, hearing grossly normal bilaterally, external ears normal and external nose normal Eyes EOMs intact bilaterally General Eye: normal appearance of both eyes Neck Neck Narrative: R neck incision site with small amount of swelling and bruising, soft to palpation. Surgical glue intact. Small area of swelling and ecchymosis just anterior to R ear, this was present prior to surgery. Resp normal respiratory effort and no use of accessory muscles Effort and Inspection: able to speak in complete sentences; Negative for labored, grunting, stridor or audible wheezes Cardio Rate: regular rate Rhythm: regular rhythm Extremity no clubbing, cyanosis or edema Extremity Narrative: R femoral access site with minimal bruising, no significant swelling, no erythema. L femoral art line site with minimal bruising. Neuro oriented x3, CN's II-XII intact bilaterally, moves all extremities, no focal motor deficits and no sensory deficits noted Speech: speech normal Psych mental status grossly normal Appearance: grossly normal Attitude: calm and engaged Activity / Motor Behavior: appropriate eye contact Speech: normal speech Mood & Affect: euthymic mood Assessment & Plan Assessment/Plan (1) Carotid artery stenosis: QUALIFIERS: Laterality: bilateral Qualified Code(s): I65.23 - Occlusion and stenosis of bilateral carotid arteries PLAN: Plan Patient is POD#1 from R TCAR. Post-op dressing and ZOHRA drain were removed without issue. Incision site satisfactory in appearance, mild expected swelling/bruising. Able to void after sykes catheter removal. Will continue tamsulosin at discharge. Discharge this afternoon.
--- NOTE | 2022-10-19 13:41 | PCM.DC.SUM ---
Providers Date of Admission: 10/18/22 Primary Care Physician: Dr. 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 Post-op dressing and ZOHRA drain were removed without issue. Incision site satisfactory in appearance, mild expected swelling/bruising. Able to void after sykes catheter removal. Will continue tamsulosin at discharge. Discharge this afternoon. Medications at Discharge Home Medications aspirin 81 mg chewable tablet 81 mg PO DAILY@0800 asparin 10/23/18 cholecalciferol (vitamin D3) 50 mcg (2,000 unit) capsule 50 mcg PO DAILY vitamin 10/08/19 duloxetine 30 mg capsule,delayed release 30 mg PO BID depression #180 caps 08/04/21 atorvastatin 80 mg tablet 80 mg PO QHS #30 tabs 09/10/22 ondansetron 4 mg disintegrating tablet 4 mg PO PRN NAUSEA 10/04/22 amlodipine 10 mg tablet 10 mg PO DIRECTED #90 tabs 10/10/22 carvedilol 6.25 mg tablet (Coreg) 6.25 mg PO BID #60 tabs 10/10/22 oxycodone 5 mg tablet 5 mg PO Q8H PRN PRN Pain Score 4-10 3 days #9 tabs 10/19/22 tamsulosin 0.4 mg capsule 0.4 mg PO DAILY@1730 14 days #14 caps 10/19/22 ticagrelor 90 mg tablet (Brilinta) 90 mg PO BID #60 tabs 10/19/22 Hospital Course Operations - (Right TCAR) Summary of Care Provided Hospital Course: Patient had right transcarotid artery stent on 10/18/2022. He was routinely admitted to the ICU postoperatively for hemodynamic and neurologic monitoring. He has remained hemodynamically and neurologically stable throughout his admission. Initially, had some urinary retention, tamsulosin was started, and this has resolved. He has been tolerating diet and ambulating without difficulty. His overall mental status seems to be improved postop compared to preop. He had been initiated on Xarelto pre-operatively due to severity of disease and appearance of thrombus on imaging, will discontinue this now. He will continue ASA + Brilinta for 30 days after surgery before transitioning to ASA daily only. He will follow-up in the office as an outpatient in 2 weeks. We will plan for Left CEA in about 6 weeks. Physical Exam Const alert, oriented x3 and no apparent distress General Appearance: cooperative and comfortable HEENT normocephalic, head/scalp atraumatic, hearing grossly normal bilaterally, external ears normal and external nose normal Eyes EOMs intact bilaterally General Eye: normal appearance of both eyes Neck Neck Narrative: R neck incision site with small amount of swelling and bruising, soft to palpation. Surgical glue intact. Small area of swelling and ecchymosis just anterior to R ear, this was present prior to surgery. Resp normal respiratory effort and no use of accessory muscles Effort and Inspection: able to speak in complete sentences; Negative for labored, grunting, stridor or audible wheezes Cardio Rate: regular rate Rhythm: regular rhythm Extremity no clubbing, cyanosis or edema Extremity Narrative: R femoral access site with minimal bruising, no significant swelling, no erythema. L femoral art line site with minimal bruising. Neuro oriented x3, CN's II-XII intact bilaterally, moves all extremities, no focal motor deficits and no sensory deficits noted Speech: speech normal Psych mental status grossly normal Appearance: grossly normal Attitude: calm and engaged Activity / Motor Behavior: appropriate eye contact Speech: normal speech Mood & Affect: euthymic mood Weight / BMI Weight Weight: 161 lb 6.054 oz Body Mass Index (BMI) 26.9 ABG / Lab / Microbiology Data 10/19/22 04:45 Laboratory: Laboratory Results - last 24 hr 10/18/22 09:20: Activated Clotting Time 395 H 10/18/22 09:50: Activated Clotting Time 329 H 10/19/22 04:45: WBC 11.7 H, RBC 4.09 L, Hgb 11.8 L, Hct 35.4 L, MCV 86.6, MCH 28.9, MCHC 33.3, RDW Std Deviation 41.7, RDW Coeff of [place] 13.3, Plt Count 297, MPV 9.9, Immature Gran % (Auto) 0.600, Neut % (Auto) 88.2 H, Lymph % (Auto) 4.7 L, [place] % (Auto) 6.4, Eos % (Auto) 0.0, Baso % (Auto) 0.1, Absolute Neuts (auto) 10.3 H, Absolute Lymphs (auto) 0.55 L, Nucleated RBC % 0 D/C Instructions Discharge Diet: No restrictions Discharge Activity: Return to Normal Activity May shower in (days): 1 Weight Bearing Status: Weight bearing as tolerated Lifting Restricted to (Lbs): 20 Lifting Restrictions: Do not lift greater than 20 pounds for 3 weeks. Call your doctor if your incision/area has: Sudden Increased Bleeding, Increased Redness and Foul Smelling Discharge Call your doctor if you observe: Fever of 101 or Higher and Uncontrolled pain Additional Dressing/Incision Instructions: There is a small bandage at the base of the incision site. This is covering the site from which the drain was pulled. You may remove this bandage tomorrow. If there is still some drainage, you may cover with a bandaid or other dry dressing at home. The rest of your neck incision site is covered with surgical glue which will protect it. The glue will peel/flake off on its own over the next few weeks. Please do not pick at the glue. The right groin access site is covered with a dry dressing. You may remove this tomorrow. If there is still some drainage, you may cover this with a bandaid or other dry dressing as well. Additional Instructions: You may shower tomorrow. Soap and water may rinse over the incision sites, pat to dry. Do not submerge the incision sites in water such as with a bath, swimming, etc. Please note the following medication instructions: 1. Continue to take Brilinta 90mg twice daily for 30 days. 2. Continue to take Aspirin 81mg daily. 3. Stop taking Xarelto 20mg daily. 4. Continue tamsulosin 0.4mg daily for another 2 weeks. I have prescribed oxycodone 5mg to be taken every 8 hours as needed for pain. Take this only as directed. You may take this in addition to tylenol. Do not take in combination with other prescription pain medications. Do not lift greater than 20 pounds for [address] you are able to turn your head to safely check your blindspots, typically patients need to wait 3-5 days. Follow-up in the office in 2 weeks. If you do not have an appointment scheduled already, our office will contact you to do so or you may call us at [phone]. Please Follow Up With: Jerrod Coronado MD When: 2 weeks Meaningful Use Info Meaningful Use Diagnoses (Choose all that apply): None applicable Discharge Plan Admission Admit Date/Time: 10/18/22 11:33 Primary Reason for Your Visit: Right TCAR Attending Provider: Jerrod Coronado Primary Care Provider: Jn Worthington Discharge Orders/Prescriptions Prescriptions: New tamsulosin 0.4 mg Capsule 0.4 mg PO DAILY@1730 14 Days Qty: 14 0RF oxycodone 5 mg Tablet 5 mg PO Q8H PRN PRN (Reason: Pain Score 4-10) 3 Days Qty: 9 0RF Brilinta 90 mg Tablet 90 mg PO BID Qty: 60 1RF Continued cholecalciferol (vitamin D3) 50 mcg (2,000 unit) capsule 50 mcg PO DAILY duloxetine 30 mg capsule,delayed release(DR/EC) 30 mg PO BID Qty: 180 3RF aspirin 81 MG tablet,chewable 81 mg PO DAILY@0800 0RF ondansetron 4 mg tablet,disintegrating 4 mg PO PRN Patient Comments: DISSOLVE ONE TABLET ONETHE TONGUE EVERY 8 HOURSNAS NEEDED FOR NAUSEA atorvastatin 80 mg Tablet 80 mg PO QHS Qty: 30 0RF amlodipine 10 mg tablet 10 mg PO DIRECTED Qty: 90 1RF carvedilol [Coreg] 6.25 mg tablet 6.25 mg PO BID Qty: 60 0RF Rx Instructions: must administer with a meal/food Discontinued Brilinta 90 mg tablet 90 mg PO BID Qty: 60 1RF Xarelto 20 mg tablet 20 mg PO DAILY Qty: 30 0RF Rx Instructions: must administer with evening meal Referrals / Follow Up: Jn Worthington MD [Primary Care Provider] - Disposition Disposition (needs filled in before D/C Order can be placed): Home, Self Care
--- NOTE | 2022-10-19 15:23 | CASEMGMT ---
Notified Ashly at [facility] that pt dc'd today.
== END 2022-10-19 14:20 | disposition home or self-care (01) | DRG 36 ==
LOC: SDC 11:49 → ICU 11:49
PROVIDERS: Admitting Provider Surgery Trauma Surgery; PCP Internal Medicine; Visit Provider Surgery Trauma Surgery
PROC: 037K3EZ Dilation of Right Internal Carotid Artery with Two Intraluminal Devices, Percutaneous Approach (ICD-10-PCS; CPT 37236; principal; 2022-10-18 07:00)
DX: I65.23 Occlusion and stenosis of bilateral carotid arteries (principal); E86.1 Hypovolemia; F01.50 Vascular dementia, unspecified severity, without behavioral disturbance, psychotic disturbance, mood disturbance, and anxiety; I25.10 Atherosclerotic heart disease of native coronary artery without angina pectoris; Z87.891 Personal history of nicotine dependence; Z79.02 Long term (current) use of antithrombotics/antiplatelets; Z79.82 Long term (current) use of aspirin
CPT/HCPCS: 36415; 37215; 76937; 85025; 85347; 86850; 86900; 86901; 94668; 94762; 97161; 99252; A4648; C1725; C1769; C1876; C1884; C1894; J7030; J7120; Q9967; G0463; J2405

== ENCOUNTER → 2022-11-04 | Outpatient (CLI) | payer MEDICARE, SELFPAY ==
[2022-11-04 13:22] LABS: Anion Gap 6 (5-15); BUN 17 mg/dL (7-18); BUN/Creat Ratio 11.8 RATIO (10-20); Calcium,Total 8.8 mg/dL (8.5-10.1); Chloride 105 mmol/L (98-107); Creatinine, Serum 1.44 mg/dL (0.70-1.30); EST Glomerular Filtration Rate 52 mL/min (>60); Est Glom Filt Rate - Afr Amer 63 mL/min (>60); Glucose 137 mg/dL (74-106); Potassium 3.8 mmol/L (3.5-5.1); Sodium Level 137 mmol/L (136-145)
[2022-11-04 13:29] LABS: AST(SGOT) 17 U/L (15-37); Alanine Aminotransfer ALT/SGPT 34 U/L (16-61); Albumin, Serum 3.4 g/dL (3.2-5.0); Alkaline Phosphatase 125 U/L (45-117); Bilirubin, Direct 0.09 mg/dL (0.00-0.30); Cholesterol 260 mg/dL (200); High Density Lipoprotein 46 mg/dL; Protein, Total 7.4 g/dL (6.4-8.2); Triglycerides 174 mg/dL; Very Low Density Lipoprotein 35 mg/dL (5-40)
== END | disposition home or self-care (01) ==
PROVIDERS: Nurse Practitioner Gerontology; PCP Internal Medicine; Referring Provider Internal Medicine; Visit Provider Internal Medicine
DX: I10 Essential (primary) hypertension (principal); E78.00 Pure hypercholesterolemia, unspecified
CPT/HCPCS: 36415; 80048; 80061; 80076

== ENCOUNTER → 2022-11-18 | Outpatient (CLI) | payer MEDICARE, SELFPAY ==
--- NOTE | 2022-11-18 09:48 | CDU_ITS ---
Reason For Study: S/P Rt TCAR Rt. Velocities/BP Lt. Velocities/BP Prox CCA 50.1/17.1 cm/sec. Prox CCA 72.1/19.3 cm/sec. Mid CCA 68.7/21.2 cm/sec. Mid CCA 73.2/23.7 cm/sec. Dist CCA 55.9/19.4 cm/sec. Dist CCA 48.1/13.9 cm/sec. Prox ICA 85.1/26.7 cm/sec. Prox ICA 33.7/16.2 cm/sec. Mid ICA 30.8/10.0 cm/sec. Mid ICA 117.6/29.3 cm/sec. Dist ICA 26.9/12.2 cm/sec. Dist ICA 69.5/16.7 cm/sec. Rt. ICA/CCA = 1.2. Lt. ICA/CCA = 1.6. Prox ECA 82.3/21.8 cm/sec. Prox ECA 136.3/34.0 cm/sec. Rt. Vert. 35.3/12.5 cm/sec. Lt. Vert. 28.9/8.3 cm/sec. Right Extracranial There is heterogeneous, smooth atherosclerotic plaque noted in the right common carotid artery. There is heterogeneous, irregular atherosclerotic plaque noted in the right internal carotid artery. The atherosclerotic plaque causes acoustic shadowing. The right internal carotid artery is very tortuous. S/P TCAR, Stent visualized. The right external carotid artery is not well visualized. Antegrade flow is noted in the right vertebral artery. Left Extracranial There is heterogeneous, smooth atherosclerotic plaque noted in the left common carotid artery. There is heterogeneous, irregular atherosclerotic plaque noted in the left internal carotid artery. The left internal carotid artery is very tortuous. There is heterogeneous, irregular atherosclerotic plaque noted in the left external carotid artery. Antegrade flow is noted in the left vertebral artery. There is heterogeneous, irregular atherosclerotic plaque noted in the left bulb. Procedure Carotid Duplex 93637. This is a Carotid Duplex examination using B-mode, color flow and specral Doppler. The exam was diagnostic. Exam performed in department. VL/Carotid Duplex Ultrasound Interpretation Summary Mild (<50%) stenosis right extracranial internal carotid. Mild (<50%) stenosis left extracranial internal carotid. Patent and antegrade vertebrals bilaterally. Ordering Physician: Gely Antonio Referring Physician: Jn Worthington Performed By: Guille Pacheco RVT
== END | disposition home or self-care (01) ==
PROVIDERS: PCP Internal Medicine; Referring Provider Physician Assistant; Visit Provider Physician Assistant
DX: R42 Dizziness and giddiness (principal); I65.29 Occlusion and stenosis of unspecified carotid artery
CPT/HCPCS: 93880

== ENCOUNTER 2022-11-21 05:23 | Inpatient (IN) | payer MEDICARE, SELFPAY ==
[2022-11-21] VITALS (26 sets, daily range): BP systolic 92–134; BP diastolic 51–87; PULSE 68–88; RESP 11–18; TEMP 36.1–36.6; O2SAT 93–100; BMI 24.3; BMI 26.0
[2022-11-21] MEDS: Lactated Ringers 1,000 ML 15 ML IV (06:20)
--- NOTE | 2022-11-21 07:27 | HP.PCM_ITS ---
History and Physical Allergies codeine Adverse Reaction (Verified 11/04/22 08:05) Upset Stomach Medications aspirin 81 mg chewable tablet 81 mg PO DAILY@0800 asparin 10/23/18 [Rx Confirmed 11/04/22] cholecalciferol (vitamin D3) 50 mcg (2,000 unit) capsule 50 mcg PO DAILY vitamin 10/08/19 [History Confirmed 11/04/22] duloxetine 30 mg capsule,delayed release 30 mg PO BID depression #180 caps 08/04/21 [Rx Confirmed 11/04/22] atorvastatin 80 mg tablet 80 mg PO QHS #30 tabs 09/10/22 [Rx Confirmed 11/04/22] ondansetron 4 mg disintegrating tablet 4 mg PO PRN NAUSEA 10/04/22 [History Confirmed 11/04/22] amlodipine 10 mg tablet 10 mg PO DIRECTED #90 tabs 10/10/22 [Rx Confirmed 11/04/22] carvedilol 6.25 mg tablet (Coreg) 6.25 mg PO BID #60 tabs 10/10/22 [Rx Confirmed 11/04/22] ticagrelor 90 mg tablet (Brilinta) 90 mg PO BID #60 tabs 10/19/22 [Rx Confirmed 11/04/22] Subjective Details: ДМИТРИЙ BOJORQUEZ, is a 67 M who presents for left carotid stenosis, asymptomatic. Previously underwent right TCAR for symptomatic recurrent stenosis which he tolerated well. He is recovering well from surgery. Incision site is healing well and denies any redness/swelling/bruising/pain. He denies any headaches, focal motor weakness, sensory deficits, facial drooping, dysarthria. He and his reports his overall mental status is slightly improved from prior to surgery. He is taking the ASA and Brilinta as prescribed and denies any epistaxis, bloody stools, hematuria. He has no specific complaints today. Objective Details: A&Ox3, NAD RRR Nonlabored respirations, CTA R neck incision site with surgical glue intact, wel-healing. No swelling, br uising, redness, dehiscence, drainage. CN II-XII intact bilaterally, no focal motor deficits, no sensory deficits, speech normal Coding Level of Care Code Global Post Op Diagnoses Bilateral carotid artery stenosis I65.23 Laterality: bilateral Internal carotid artery stent present Z95.828 [facility] Medical History Atherosclerosis of coronary artery of koi heart without angina pectoris Back pain BPH (benign prostatic hyperplasia) Bruising Cardiology follow-up encounter CKD (chronic kidney disease) CVA (cerebrovascular accident) Depression Elevated PSA, less than 10 ng/ml Erectile dysfunction Essential (primary) hypertension Facial paresthesia Former smoker Heartburn High cholesterol History of diverticulitis History of echocardiogram History of edema History of myocardial infarction HLD (hyperlipidemia) Ischemic cardiomyopathy Left ventricular diastolic dysfunction Leg cramps Nonrheumatic mitral (valve) insufficiency Secondary pulmonary arterial hypertension Shortness of breath on exertion Stenosis of right carotid artery Syncope Wears dentures Wears glasses Surgical History H/O coronary artery bypass surgery (2013) History of colonoscopy History of left heart catheterization (10/22/18) History of prostate biopsy History of right-sided carotid endarterectomy (2010) Hx of angioplasty Hx of CABG Hx of oral surgery Hx of tonsillectomy Family History Father Heart disease AlcoholismBrother AlcoholismGrandfather Heart disease Social History housing: house Smoking Status: Former smoker Tobacco: How many years used: 35 alcohol intake: never substance use type: does not use what type of physical activity do you participate in: walking frequency: daily Assessment and Plan (No Qualifiers) Assessment and Plan (1) Carotid artery stenosis: Status: Chronic Comment: CTA- images reviewed right ICA with 84% stenosis, bulb 16 mm with voluminous irregular soft plaque left ICA with 77% stenosis, voluminous irregular soft plaque (2) Internal carotid artery stent present: Status: Acute Plan -left carotid stenosis not demonstrated on duplex, however CTA reveals 80% stenosis with soft plaque/thrombus -plan left CEA
--- NOTE | 2022-11-21 07:30 | PLAQ_PTH ---
PATIENT: ДМИТРИЙ BOJORQUEZ LOC: ICU U#:[id number] AGE/SX: 67/M ROOM: [place] [id number] RE11/21/[address]: Dr. Jerrod Coronado MD : 1955 BED: 1 DIS: 11/22/2022 SPEC #: [id number] RECD: 11/21/22 12:39 STATUS: JOHN REQ #: [id number] SUDHIR: 11/21/22 07:[address]: Jerrod Coronado DEPT: SURGICAL PATHOLOGY RECD BY: Jo Gonzales ENTERED: 11/22/22 09:19 SP TYPE: PLAQUE OTHR DR: Dr. Jn Worthington MD Tissues: PLAQUE Procedures: Decalcification bone/plaque Surgery Specimen Level III HEADER OPERATION: Carotid endarterectomy PRE-OP DIAGNOSIS: Bilateral carotid artery stenosis, internal carotid artery stent present TISSUE SUBMITTED: Plaque left carotid MICROSCOPIC DIAGNOSIS Left carotid artery plaque, endarterectomy: Calcified atheromatous plaque, mildly inflamed, consistent with severe stenosis. AM:louisa 11/25/2022 GROSS DESCRIPTION Received in fixative is one container labeled with the patient's name and designated plaque left carotid. The specimen consists of two irregular fragments of gritty yellow tissue ranging in size from 0.5 to 3.0 cm. The specimen is serially sectioned and totally submitted in one cassette after decalcification. / AM:louisa 11/22/2022 TC:5 CPT: 63789, 55392
[2022-11-21] MEDS: Cefazolin 2 GM in 0.9% Normal Saline (100mL Bag) 100 ML IV (07:54)
[2022-11-21] MEDS: Heparin Injection (Vial) 5,000 UNIT/ML VIAL 5000 UNIT (10:00)
[2022-11-21] MEDS: Nitro/D5w 25MG/250ML Bottle 25 MG (10:06)
[2022-11-21] MEDS: Bupivacaine Mpf 0.5% 30 ML VIAL (10:11)
--- NOTE | 2022-11-21 10:18 | OP.PCM_ITS ---
Report of Operation Date of Procedure: 11/21/22 Pre-Operative Diagnosis: left carotid stenosis Post-Operative Diagnosis: same Surgery/Procedure Performed:: left carotid endarterectomy Surgeon: Jerrod Coronado Type of Anesthesia: General Drains: 19 Fr ZOHRA Estimated Blood Loss (mL): 30 Description of Procedure: HPI: Patient is a 67-year-old male with asymptomatic left carotid artery stenosis that was identified during evaluation of the right hemispheric cerebrovascular event and right carotid stenosis. He previously underwent a right carotid artery stent and has successfully recovered and presents now to address his left carotid. Of note his carotid duplex has had normal velocities for 2 separate studies however his CT scan revealed 80% stenosis with soft large volume plaque versus thrombus. He presents now for elective endarterectomy. Description of procedure: Upon obtaining informed consent and verification correct patient procedure site patient was taken to the operating was placed under general anesthesia. He was then positioned prepped and draped in usual sterile fashion a time was performed. Oblique incision was made along the anterior border the sternocleidomastoid and Bovie electrocautery was dissect down through subcutaneous tissue to level the platysma. The platysma was divided and self-retaining retractors put in position. Further dissection was carried down to the sternocleidomastoid which was mobilized along its anterior border then retracted laterally exposing the carotid sheath. Sharp dissection then used to dissect free the jugular vein along its anterior border with the facial vein was identified, ligated with silk ties, and divided. The jugular vein was then retracted laterally exposing the carotid vessels. Sharp dissection was used dissect free the proximal common carotid artery with care taken to identify protect the vagus nerve. A right angle was used to place Vesseloops and proximal vessel return attention distally. Sharp dissection was dissect free the internal carotid artery beyond the area of plaque with care taken to identify and protect the hypoglossal and vagus nerve. A right angle was used to place a vessel loop distal on the internal carotid artery and the patient was then heparinized and allowed to circulate for 3 minutes. While the heparin was circulating sharp dissection used to dissect the external carotid artery and a right angle used to place a vessel loop. Repeat heparin dosing was performed based on serial ACT results. The vessels were then occluded first the internal followed by the common external. A longitudinal arteriotomy was created with 11 blade extended Barnes scissors onto the internal carotid artery beyond the area of plaque. A 12 [place] shunt was then placed first distally into the internal carotid artery, allowed to backbleed and then placed proximally in the common carotid artery. The shunt was then interrogated with Doppler and found to be patent with low resistance signal. We then performed her endarterectomy with a freer elevator with satisfactory endpoint distally on the internal carotid artery and eversion endarterectomy of the external carotid artery. The lumen was then flushed heparinized saline to clear debris in the distal endpoint tacked with 7-0 Prolene interrupted sutures. A bovine pericardial patch was then brought on the field and secured in position using a 6-0 Prolene in running fashion. Prior to completing the suture line the shunt was removed and the vessels back flushed. After completing the suture line the internal carotid artery was allowed to backbleed into the bifurcation then reoccluded as origin. Clamps were then removed from the external and common carotid artery allowing 10 heartbeats of antegrade flow to flush into the external before reestablishing flow into the internal carotid artery. After releasing the clamps there is satisfactory stasis noted and the vessels were i nterrogated with Doppler. The internal carotid artery is patent with low resistance signal in the external carotid artery is patent with normal signal. The patient was then reversed with protamine and the incision inspected for hemostasis. Floseal topical hemostatic was applied and a 19 Citizen [place] channel ZOHRA placed via separate stab incision. The patient was then awake from anesthesia moving all extremities to command and cranial nerves intact. He was taken to the recovery room with anticipated admission in the intensive care unit for hemodynamic and neurologic monitoring.
[2022-11-21] MEDS: 0.9% Normal Saline (500mL Bag) 500 ML IV (11:37)
[2022-11-21] MEDS: 0.45% Normal Saline 1,000 ML 75 ML IV (13:29)
[2022-11-21] MEDS: Acetaminophen 500 MG Tablet 1000 MG PO ×2 (13:36→21:36)
[2022-11-21] MEDS: Cefazolin 1 GM/50 ML BAG IV ×2 (16:29→21:35)
[2022-11-21] MEDS: oxyCODONE 5 MG Tablet PO (18:24)
[2022-11-21] MEDS: HYDROmorphone Inj 0.2 MG/ML SYRINGE IV (19:33)
[2022-11-21] MEDS: 0.9% Saline Lock 10 ML Syringe IV (19:34)
--- NOTE | 2022-11-21 21:05 | NURSING ---
pt reporting 10/10 pain since start of this RN's shift. 5mg of Oxyir given by Yanet Will RN at 1830. 0.2 mg of Dilaudid given at 1930 by this RN. Pt continues to experience pain, reporting it at 8/10 after Dilaudid admin. Attempting to comfort patient w/ repositioning, warm blanket to neck and ice. Upon examination, pt looks relaxed. No change in behavior, restlessness, grasping site, moaning , etc. Will continue to monitor. Pt due for tylenol at 2200.
[2022-11-21] MEDS: Atorvastatin Calcium 80 MG Tablet PO (21:37)
[2022-11-21] MEDS: DULoxetine Hcl 30 MG Capsule PO (21:37)
[2022-11-22] VITALS (15 sets, daily range): BP systolic 115–145; BP diastolic 71–84; PULSE 69–86; RESP 11–20; TEMP 36.3–36.7; O2SAT 93–98; BMI 25.9
[2022-11-22] MEDS: 0.45% Normal Saline 1,000 ML 75 ML IV (00:25)
[2022-11-22 04:22] LABS: Absolute Lymphocyte Count 0.81 X10^3/uL (0.83-4.51); Absolute Neutrophil Count 10.5 X10^3/uL (2.0-7.7); Basophil# 0.01 X10^3/uL; Basophil% 0.1 % (0-1); Hematocrit 30.9 % (40-54); Hemoglobin 10.2 g/dL (13.0-16.5); Lymphocyte # 0.81 X10^3/ul (0.83-4.51); Lymphocyte % 6.7 % (19-41); Mean Corpuscular Hgb 28.3 pg (27.0-32.0); Mean Corpuscular Volume 85.8 fL (80-94); Mean Platelet Vol. 10.5 fl (6.2-12.0); Monocyte# 0.79 X10^3/uL; Monocyte% 6.5 % (0-10); NRBC Flagged by Analyzer 0 % (0-5); Neutrophil # 10.49 X10^3/uL (2.7-7.7); Neutrophil % 86.2 % (47-70); POSITIVE COUNT YES; RBC Distribution Width CV 13.4 % (11.6-14.6); RBC Distribution Width SD 41.5 fl (35.1-43.9); White Blood Count 12.2 K/mm3 (4.4-11.0)
[2022-11-22 05:27] LABS: Differential Indicated SCAN CRITERIA MET
[2022-11-22 05:28] LABS: Other WBC Type 0.81 %; Platelet Estimate ADEQUATE (ADEQ); Poikilocytosis 0.81
[2022-11-22] MEDS: Acetaminophen 500 MG Tablet 1000 MG PO (05:54)
[2022-11-22] MEDS: Cholecalciferol (VIT D3) 25 MCG TABLET (1,000 UNITS) 50 MCG PO (08:54)
[2022-11-22] MEDS: Aspirin 81 MG TAB.CHEW PO (08:54)
[2022-11-22] MEDS: Enoxaparin 40 MG/0.4 ML Syringe SC (08:54)
[2022-11-22] MEDS: DULoxetine Hcl 30 MG Capsule PO (08:54)
[2022-11-22] MEDS: Clopidogrel Bisulfate 75 MG Tablet PO (08:55)
[2022-11-22] MEDS: amLODIPine 10 MG Tablet PO (08:55)
[2022-11-22] MEDS: Carvedilol 6.25 MG Tablet PO (08:55)
[2022-11-22] MEDS: Flu Vacc QS2023-24(65YR UP)/PF 240 MCG/0.7 ML Syringe IM (08:56)
--- NOTE | 2022-11-22 09:40 | CASEMGMT ---
RN?CM?DROP HAMMER SETTER UP?CM?to room to meet with patient for initial transition planning/care coordination?assessment.?RN?CM?introduced self and role at [facility].? Pt voices understanding and consents to?assessment?at this time.? Pt sitting up in chair in room in no distress at this time.? Pt is A/O at this time and answers all questions appropriately.?? Care providers, pharmacy, and demographics verified/updated at this time. PCP:Dr Worthington Specialists: Dr Coronado-vascular, [facility]/Dr Mckeon-cardiology Preferred Pharmacy: [facility] Retail Insurance: [employer] Prescription Benefit:?Yes Living Will/HPOA:?Pt has both LW and HCPOA, who is his , Harper BENSON: , Harper. 2 sons. One is Eb Living Arrangements: Lives w/his in bi-level home w/7 steps to enter. Independent. Transportation:?Pt states drives self and states no transportation concerns at this time.? also drives. DME: ? Denies using any DME and denies needs.?He does have a pulse ox and BP machine. HHC/SNF: No hx of SNF. Just had [facility] last month. Denies need for HHC at discharge. Pt wishes to return home and states has no concerns with going home at time of discharge.? CM?to follow for any discharge planning/needs.? Pt voices no concerns/needs at this time.? Advised pt to ask for?CM?if any questions/concerns/needs arise.? Voices understanding. PLAN:??Home Alexia BSN?RN?CM
[2022-11-22] MEDS: oxyCODONE 5 MG Tablet PO (10:54)
--- NOTE | 2022-11-22 11:08 | PN.SURG_ITS ---
Subjective Subjective Patient is doing well this morning. He reports minimal pain at the incision site, he does report his neck feels stiff. He did have a posterior headache last night, but this has resolved. No weakness, numbness/paresthesias. No problems chewing/swallowing. He has been able to void. He is up to the chair this morning and denies any dizziness/lightheadedness with this. His blood pressures have been stable. ZOHRA drain with minimal output overnight. Objective Data Objective Data Vital Signs: Vital Signs Temp Pulse Resp BP Pulse Ox O2 Del Method O2 Flow Rate 97.6 F L 77 18 126/80 H 98 Room Air 2 11/22/22 08:00 11/22/22 11:00 11/22/22 11:00 11/22/22 11:00 11/22/22 11:00 11/22/22 11:00 11/21/22 13:45 Oxygen Flow Rate (L/min) 2 Oxygen Delivery Method Room Air Weight: 155 lb 6.814 oz Body Mass Index (BMI) 25.9 Intake & Output: Intake and Output for Last 24 Hours 11/20/22 11/21/22 11/22/22 23:59 23:59 23:59 Intake Total 502.58 / 502.58 1447.5 / 1447.5 Output Total 190 / 190 Balance 312.58 / 312.58 1437.5 / 1437.5 Lab / Micro Data 11/22/22 04:15 Labs: Laboratory Results - last 24 hr 11/22/22 04:15: WBC 12.2 H, RBC 3.60 L, Hgb 10.2 L, Hct 30.9 L, MCV 85.8, MCH 28.3, MCHC 33.0, RDW Std Deviation 41.5, RDW Coeff of [place] 13.4, Plt Count TNP, MPV 10.5, Immature Gran % (Auto) 0.500, Neut % (Auto) 86.2 H, Lymph % (Auto) 6.7 L, [place] % (Auto) 6.5, Eos % (Auto) 0.0, Baso % (Auto) 0.1, Absolute Neuts (auto) 10.5 H, Absolute Lymphs (auto) 0.81 L, Other Cells % 0.81, Nucleated RBC % 0, Platelet Estimate ADEQUATE, Poikilocytosis 0.81 Physical Exam Const alert, oriented x3 and no apparent distress General Appearance: cooperative HEENT normocephalic, head/scalp atraumatic, hearing grossly normal bilaterally and external ears normal Nose: external nose normal Eyes EOMs intact bilaterally General Eye: normal appearance of both eyes Neck Neck Narrative: L neck incision site with surgical glue intact, mild expected swelling, minimal bruising. No redness, warmth, focal swelling. Resp normal respiratory effort, no retractions and no use of accessory muscles Effort and Inspection: able to speak in complete sentences Cardio regular rate and regular rhythm Extremity no clubbing, cyanosis or edema Skin Wounds: wounds noted Wound Narrative: L CEA incision site as described above. Neuro oriented x3, CN's II-XII intact bilaterally, moves all extremities, no focal motor deficits and no sensory deficits noted Speech: speech normal Psych mental status grossly normal Appearance: grossly normal Attitude: calm and engaged Activity / Motor Behavior: appropriate eye contact Speech: normal speech Mood & Affect: euthymic mood Assessment & Plan Assessment/Plan (1) Carotid artery stenosis: QUALIFIERS: Laterality: bilateral Qualified Code(s): I65.23 - Occlusion and stenosis of bilateral carotid arteries PLAN: He is s/p L CEA POD#1. ZOHRA drain was removed without issue today. Incision site with satisfactory appearance. He has been hemodynamically and neurologically stable. He is voiding, tolerating diet, and pain is well controlled. Plan to ambulate and work with PT/OT later this morning/early afternoon. As long as no issues, anticipate discharge this afternoon.
--- NOTE | 2022-11-22 12:57 | DS.PCM_ITS ---
Providers Date of Admission: 11/21/22 Primary Care Physician: Dr. Jn Worthington MD Reason For Visit: Carotid Endarterectomy Diagnosis Discharge Diagnosis (1) Carotid artery stenosis: Status: Chronic Code(s): I65.29 - Occlusion and stenosis of unspecified carotid artery Qualifiers: Laterality: bilateral Qualified Code(s): I65.23 - Occlusion and s tenosis of bilateral carotid arteries Plan: He is s/p L CEA POD#1. ZOHRA drain was removed without issue today. Incision site with satisfactory sudheer earance. He has been hemodynamically and neurologically stable. He is voiding, tolerating diet, and pain is well controlled. Plan to ambulate and work with PT/OT later this morning/early afternoon. As long as no issues, anticipate discharge this afternoon. Medications at Discharge Home Medications aspirin 81 mg chewable tablet 81 mg PO DAILY@0800 asparin 10/23/18 cholecalciferol (vitamin D3) 50 mcg (2,000 unit) capsule 50 mcg PO DAILY vitamin 10/08/19 ondansetron 4 mg disintegrating tablet 4 mg PO PRN NAUSEA 10/04/22 atorvastatin 80 mg tablet 80 mg PO QHS HYPERLIPIDEMIA #30 tabs 11/07/22 carvedilol 6.25 mg tablet (Coreg) 6.25 mg PO BID HEART #180 tabs 11/10/22 clopidogrel 75 mg tablet (Plavix) 75 mg PO .daily #90 tabs 11/14/22 amlodipine 10 mg tablet 10 mg PO DAILY HYPERTENSION 11/15/22 duloxetine 30 mg capsule,delayed release 30 mg PO BID depression #180 caps 11/16/22 oxycodone 5 mg tablet 5 mg PO Q8H PRN PRN Pain Score 4-10 3 days #9 tabs 11/22/22 Hospital Course Operations - (L CEA) Summary of Care Provided Hospital Course: Patient underwent left carotid endarterectomy on 11/21/2022. Postoperatively, he was routinely admitted to the ICU for hemodynamic and neurologic monitoring. He has remained hemodynamically and neurologically stable throughout his admission. ZOHRA drain was removed on POD#1 without issue. His pain is minimal and well controlled on PO regimen. He denies any headaches, syncope/presyncope, dizziness. He has been able to void, does have BPH but these symptoms are at baseline. He has been tolerating a full diet. He did well with PT/OOT today. He feel ready for discharge home with his /family. He is medically stable for discharge. He will follow-up in the office on 12/08/2022 as scheduled or sooner as needed. Physical Exam Const alert, oriented x3 and no apparent distress General Appearance: cooperative HEENT normocephalic, head/scalp atraumatic, hearing grossly normal bilaterally and external ears normal Nose: external nose normal Eyes EOMs intact bilaterally General Eye: normal appearance of both eyes Neck Neck Narrative: L neck incision site with surgical glue intact, mild expected swelling, minimal bruising. No redness, warmth, focal swelling. Resp normal respiratory effort, no retractions and no use of accessory muscles Effort and Inspection: able to speak in complete sentences Cardio regular rate and regular rhythm Extremity no clubbing, cyanosis or edema Skin Wounds: wounds noted Wound Narrative: L CEA incision site as described above. Neuro oriented x3, CN's II-XII intact bilaterally, moves all extremities, no focal motor deficits and no sensory deficits noted Speech: speech normal Psych mental status grossly normal Appearance: grossly normal Attitude: calm and engaged Activity / Motor Behavior: appropriate eye contact Speech: normal speech Mood & Affect: euthymic mood Weight / BMI Weight Weight: 155 lb 6.814 oz Body Mass Index (BMI) 25.9 ABG / Lab / Microbiology Data 11/22/22 04:15 Laboratory: Laboratory Results - last 24 hr 11/22/22 04:15: WBC 12.2 H, RBC 3.60 L, Hgb 10.2 L, Hct 30.9 L, MCV 85.8, MCH 28.3, MCHC 33.0, RDW Std Deviation 41.5, RDW Coeff of [place] 13.4, Plt Count TNP, MPV 10.5, Immature Gran % (Auto) 0.500, Neut % (Auto) 86.2 H, Lymph % (Auto) 6.7 L, [place] % (Auto) 6.5, Eos % (Auto) 0.0, Baso % (Auto) 0.1, Absolute Neuts (auto) 10.5 H, Absolute Lymphs (auto) 0.81 L, Other Cells % 0.81, Nucleated RBC % 0, Platelet Estimate ADEQUATE, Poikilocytosis 0.81 D/C Instructions Discharge Diet: No restrictions May shower in (days): 1 Weight Bearing Status: Weight bearing as tolerated Lifting Restricted to (Lbs): 20 Lifting Restrictions: do not lift greater than 20 pounds for 3 weeks Call your doctor if your incision/area has: Sudden Increased Bleeding, Increased Pain/ Swelling and Foul Smelling Discharge Call your doctor if you observe: Fever of 101 or Higher and Uncontrolled pain Additional Instructions: There is a small bandage over the surgical drain site. You may remove this tomorrow. If there is still some drainage you may cover with a new bandaid/dressing. If there is no drainage, you may leave this open to air. The incision is covered by surgical glue which will protect it. This glue will peel/flake off on its own over the next few weeks. Please do not pick at it. You may shower tomorrow. It is okay for soap and water to rinse over the incision. Pat to dry. Do not submerge the incision such as to take a bath or go swimming for 3 weeks. Do not lift greater than 20 pounds for [address] you are able to turn your neck well enough to check your blindspots. You have been prescribed oxycodone 5mg tablet to be taken by mouth every 8 hours as needed for pain. You may take this in combination with tylenol/acetaminophen as needed. Do not combine with any other prescribed pain medications. Follow-up in the office Please Follow Up With: Gely Antonio PA When: 12/08/2022 Meaningful Use Info Meaningful Use Diagnoses (Choose all that apply): None applicable Discharge Plan Admission Admit Date/Time: 11/21/22 05:23 Primary Reason for Your Visit: Left carotid endarterectomy Attending Provider: Jerrod Coronado Primary Care Provider: Jn Worthington Discharge Orders/Prescriptions Prescriptions: New clopidogrel [Plavix] 75 mg tablet 75 mg PO .daily Qty: 90 0RF oxycodone 5 mg Tablet 5 mg PO Q8H PRN PRN (Reason: Pain Score 4-10) 3 Days Qty: 9 0RF Continued cholecalciferol (vitamin D3) 50 mcg (2,000 unit) capsule 50 mcg PO DAILY aspirin 81 MG tablet,chewable 81 mg PO DAILY@0800 0RF ondansetron 4 mg tablet,disintegrating 4 mg PO PRN Patient Comments: DISSOLVE ONE TABLET ONETHE TONGUE EVERY 8 HOURSNAS NEEDED FOR NAUSEA amlodipine 10 mg tablet 10 mg PO DAILY atorvastatin 80 mg tablet 80 mg PO QHS Qty: 30 11RF carvedilol [Coreg] 6.25 mg tablet 6.25 mg PO BID Qty: 180 0RF Rx Instructions: must administer with a meal/food duloxetine 30 mg capsule,delayed release(DR/EC) 30 mg PO BID Qty: 180 3RF Referrals / Follow Up: Jn Worthington MD [Primary Care Provider] - Disposition Disposition (needs filled in before D/C Order can be placed): Home, Self Care
== END 2022-11-22 13:30 | disposition home or self-care (01) | DRG 39 ==
LOC: ACINP 05:43 → ICU 10:54
PROVIDERS: Admitting Provider Surgery Trauma Surgery; PCP Internal Medicine; Referring Provider Surgery Trauma Surgery; Visit Provider Surgery Trauma Surgery
PROC: 03CN0ZZ Extirpation of Matter from Left External Carotid Artery, Open Approach (ICD-10-PCS; CPT 35301; principal; 2022-11-21 07:10)
DX: I65.23 Occlusion and stenosis of bilateral carotid arteries (principal); I25.10 Atherosclerotic heart disease of native coronary artery without angina pectoris; I25.2 Old myocardial infarction; Z95.828 Presence of other vascular implants and grafts; Z87.891 Personal history of nicotine dependence; Z79.82 Long term (current) use of aspirin; Z86.73 Personal history of transient ischemic attack (TIA), and cerebral infarction without residual deficits; Z95.1 Presence of aortocoronary bypass graft; R42 Dizziness and giddiness
CPT/HCPCS: 85025; 88304; 88311; 93880; 94668; 94762; 97162; 97165; 97802; 99252; A4648; J7040; J7120; 90662; A4216; G0463; J2405

== ENCOUNTER → 2022-12-26 | Outpatient (CLI) | payer MEDICARE, SELFPAY ==
--- NOTE | 2022-12-26 09:47 | ART_ITS ---
Reason For Study: Claudication Procedure A bilateral lower extremity continuous wave Doppler with analog waveform analysis,segmental pressures,and ankle brachial indexes with exercise. Left Segmental Pressures Left brachial= 168mmHg. Left thigh = 108mmHg. Left calf = 112mmHg. Left posterior tibial artery = 123mmHg. Left dorsalis pedis artery = 124mmHg. Left digit = 93 mmHg. The left dorsalis pedis waveforms are biphasic. The left posterior tibial artery waveforms are monophasic. Right Segmental Pressures Right brachial= 166mmHg. Right thigh = 109mmHg. Right calf = 129mmHg. Right posterior tibial artery = 122mmHg. Right dorsalis pedis artery = 118mmHg. Right digit = 92 mmHg. The right dorsalis pedis waveforms are monophasic. The right posterior tibial artery waveforms are biphasic. Indices The right ankle brachial index by the dorsalis pedis is 0.70. The right ankle brachial index by the posterior tibial artery is 0.73. The right digital-brachial index is 0.55. The right post exercise ankle brachial index is 0.29. The left ankle brachial index by the dorsalis pedis is 0.74. The left ankle brachial index by the posterior tibial artery is 0.73. The left digital-brachial index is 0.55. The left post exercise ankle brachial index is 0.63. VL/Lower Ext Art Exam w/ Exercise Interpretation Summary Right KATIE 0.73, moderate arterial insufficiency. Doppler/PVR waveforms and segm ental pressures reveal [id number] femoral disease Right lower extremity with abnormal response to exercise and post exercise KATIE in the severe category. Left KATIE 0.74, moderate arterial insufficiency. Doppler/PVR waveforms and segme ntal pressures reveal [id number] femoral disease Left lower extremity exhibits no change in response to exercise. Ordering Physician: Gely Antonio Referring Physician: Jn Worthington Performed By: Rea Azul RVT
== END | disposition home or self-care (01) ==
LOC: CVS 09:46
PROVIDERS: PCP Internal Medicine; Referring Provider Physician Assistant; Visit Provider Physician Assistant
DX: I73.9 Peripheral vascular disease, unspecified (principal)
CPT/HCPCS: 93924

== ENCOUNTER 2023-04-05 13:26 | Outpatient (CLI) | payer MEDICARE, SELFPAY ==
[2023-04-05 15:07] LABS: Absolute Lymphocyte Count 1.15 X10^3/uL (0.83-4.51); Absolute Neutrophil Count 6.4 X10^3/uL (2.0-7.7); Basophil# 0.04 X10^3/uL; Basophil% 0.4 % (0-1); Eosinophil# 0.93 X10^3/uL; Hematocrit 42.2 % (40-54); Hemoglobin 13.6 g/dL (13.0-16.5); Lymphocyte # 1.15 X10^3/ul (0.83-4.51); Lymphocyte % 12.4 % (19-41); Mean Corp Hgb Conc 32.2 g/dL (32-36); Mean Corpuscular Volume 80.7 fL (80-94); Monocyte# 0.72 X10^3/uL; Monocyte% 7.8 % (0-10); NRBC Flagged by Analyzer 0 % (0-5); Neutrophil # 6.39 X10^3/uL (2.7-7.7); POSITIVE MORPHOLOGY YES; Platelet Count 415 K/mm3 (150-450); RBC Distribution Width CV 14.7 % (11.6-14.6); RBC Distribution Width SD 42.8 fl (35.1-43.9); Red Blood Count 5.23 M/mm3 (4.6-6.2); White Blood Count 9.3 K/mm3 (4.4-11.0)
--- OUTSIDE RECORDS SUMMARY | 2023-04-05 15:13 | XMS RPT_ITS | CCD ---
Author Name Unknown Address [address] [place] [address] Organization [facility] Care Team Providers Care Building Maintenance Superintendent Name Role Phone Pcp, No Primary Care Provider Unavailabl e Allergies Allergy Classification Reported Allergen(s) Allergy Type Date of Onset Reaction(s) Facility (1 source) Codeine Drug Allergy 01-09-2012 Diarrhea [facility] (1 source) Morphine Drug Allergy 01-09-2012 Unknown [facility] Results Test Name Value Interpretation Reference Range Facil ity Encounters Encounter Date Encounter Type Care Provider Facility Start: 07-21-2010 End: 07-21-2010 Patient encounter procedure Josh (Hist) Chunduri Work Phone: [facility] Start: 07-21-2010 Results Only Josh (Hist) Ch unduri Work Phone: [facility] Procedures Date Procedure Procedure Detail Performing Clinician Start: 07-21-2010 CONVERTED SURGICAL PATHOLOGY Josh (Hist) Chunduri Work Phone: Plan of Treatment Date Care Activity Detail Author Start: 10-15-2019 Influenza vaccination INFLUENZA (#1) [facility] Start: 2012 PROSTATE CANCER SCRE ENING DISCUSSION PROSTATE CANCER SCREENING DISCUSSION [facility] Start: 08-20-2007 SHINGRIX VACCINE (1 of 2) DENT[place] GRIX VACCINE (1 of 2) [facility] Start: 08-20-2007 Tuberculosis screening COLOREC IKER CANCER SCREENING,SEE MODIFIER [facility] Start: 2002 DIABETES SCREEN DIABETES SCREEN [facility] Start: 1992 LIPID SCREEN LIPID SCREEN [facility] Start: 1976 Urine microalbumin profile DTAP,TDAP ,TD (1 - Tdap) [facility] Start: 08-20-1975 HEPATITIS C SCREENING HEPATITIS C SC GINA [facility] Start: 08-20-1975 HIV SCREENING HIV SCREENING [facility] Social History Date Type Detail Facility Tobacco smoking status NHIS Unknown if ev er smoked [facility] Sex Assigned At Not on file [facility] Additional Source Comments Source Comments (unrecognize d section and content) In the event this informatio n is protected by the Federal Confidentiality of Alcohol and Drug Abuse Patient Records regulations: The Federal rules restrict any use of the information to criminally investigate or prosecute any alcohol or drug abuse patient.[facility] FOR RECORDS PERTAINING TO PATIENTS WHO ARE OR HAVE BEEN ENROLLED IN A CHEMICAL DEPENDENCY/SUBSTANCEABUSE PROGRAM, SOME INFORMATION MAY BE OMITTED. This clinical summary was aggregated from multiple sources. Caution should be exercised in using it in the provision of clinical care. This summary normalizes information from multiple sources, and as a consequence, information in this document may materially change the coding, format and clinical context of patient data. In addition, data may be omitted in some cases. CLINICAL DECISIONS SHOULD BE BASED ON THE PRIMARY CLINICAL RECORDS. [facility] [employer] [facility]. provides no warranty or guarantee of the accuracy or completeness of information in this document.
[2023-04-05 15:17] LABS: Differential Indicated SCAN CRITERIA MET
[2023-04-05 15:23] LABS: Vitamin B12 276 pg/mL (211-911)
[2023-04-05 15:38] LABS: ALB/GLOB Ratio 0.8 RATIO (0.9-2.4); AST(SGOT) 13 U/L (15-37); Alanine Aminotransfer ALT/SGPT 21 U/L (16-61); Albumin, Serum 3.3 g/dL (3.2-5.0); Alkaline Phosphatase 147 U/L (45-117); Anion Gap 6 (5-15); BUN 12 mg/dL (7-18); BUN/Creat Ratio 8.5 RATIO (10-20); Bilirubin, Direct 0.11 mg/dL (0.00-0.30); Calcium,Total 9.2 mg/dL (8.5-10.1); Chloride 98 mmol/L (98-107); Creatinine, Serum 1.42 mg/dL (0.70-1.30); EST Glomerular Filtration Rate 53 mL/min (>60); Est Glom Filt Rate - Afr Amer 64 mL/min (>60); Globulin 4.1 g/dL (2.2-4.2); Glucose 161 mg/dL (74-106); Potassium 2.9 mmol/L (3.5-5.1); Protein, Total 7.4 g/dL (6.4-8.2); Sodium Level 135 mmol/L (136-145); Thyroid Stim Hormone (TSH) 1.04 uIU/mL (0.358-3.74)
[2023-04-05 15:52] LABS: Platelet Estimate SLT INC (ADEQ); Toxic Granulation 1+
[2023-04-05 15:53] LABS: Anisocytosis RARE; Microcytosis RARE; Red Cell Morphology N CHROM NORMAL (NORM C&C)
[2023-04-05 16:12] LABS: Cholesterol 162 mg/dL (200); High Density Lipoprotein 41 mg/dL; Triglycerides 192 mg/dL; Very Low Density Lipoprotein 38 mg/dL (5-40)
[2023-04-13 16:10] LABS: Vitamin B1, Thiamine 112.7 nmol/L (66.5-200.0)
== END 2023-04-05 23:59 | disposition home or self-care (01) ==
LOC: BIMLAB 13:26
PROVIDERS: Nurse Practitioner Gerontology; Psychiatry & Neurology Neurology; PCP Internal Medicine; Visit Provider Internal Medicine
DX: E78.5 Hyperlipidemia, unspecified (principal); F01.50 Vascular dementia, unspecified severity, without behavioral disturbance, psychotic disturbance, mood disturbance, and anxiety; I67.9 Cerebrovascular disease, unspecified; I10 Essential (primary) hypertension; Z71.89 Other specified counseling
CPT/HCPCS: 36415; 80053; 80061; 82248; 82607; 82746; 84425; 84443; 85025

== ENCOUNTER → 2023-04-21 | Outpatient (CLI) | payer MEDICARE, SELFPAY ==
--- NOTE | 2023-04-21 09:36 | CDU_ITS ---
Reason For Study: S/P Rt TCAR and Lt CEA Rt. Velocities/BP Lt. Velocities/BP Prox CCA 49.4/12.6 cm/sec. Prox CCA 60/13 cm/sec. Mid CCA 57/13.5 cm/sec. Mid CCA 63.6/14.4 cm/sec. Dist CCA 59.8/15.4 cm/sec. Dist CCA 39.4/9.5 cm/sec. Prox ICA 33.3/8.8 cm/sec. Prox ICA 40.4/9.9 cm/sec. Mid ICA 36.2/9.7 cm/sec. Mid ICA 52.1/18.6 cm/sec. Dist ICA 41.9/12.6 cm/sec. Dist ICA 31.9/10.7 cm/sec. Rt. ICA/CCA = 0.74. Lt. ICA/CCA = 0.87. Prox ECA 109.7/16.3 cm/sec. Prox ECA 168.6/20.6 cm/sec. Rt. Vert. 25.1/8.8 cm/sec. Lt. Vert. 37.4/7.7 cm/sec. Right Extracranial There is heterogeneous, irregular atherosclerotic plaque noted in the right common carotid artery. There is heterogeneous, irregular atherosclerotic plaque noted in the right internal carotid artery. Stent noted in the right CCA distal to ICA mid. There is heterogeneous, irregular atherosclerotic plaque noted in the right external carotid artery. Antegrade flow is noted in the right vertebral artery. Left Extracranial There is homogeneous, smooth atherosclerotic plaque noted in the left common carotid artery. There is heterogeneous, irregular atherosclerotic plaque noted in the left internal carotid artery. There is heterogeneous, irregular atherosclerotic plaque noted in the left external carotid artery. Antegrade flow is noted in the left vertebral artery. Procedure Carotid Duplex [id number]. This is a Carotid Duplex examination using B-mode, color flow and specral Doppler. Exam performed in department. VL/Carotid Duplex Ultrasound Interpretation Summary Mild (<50%) stenosis right extracranial internal carotid. Mild (<50%) stenosis left extracranial internal carotid. Patent and antegrade vertebrals bilaterally. Ordering Physician: Gely Antonio Referring Physician: Jn Worthington Performed By: Rea Azul RVT
== END | disposition home or self-care (01) ==
PROVIDERS: PCP Internal Medicine; Referring Provider Physician Assistant; Visit Provider Physician Assistant
DX: Z48.812 Encounter for surgical aftercare following surgery on the circulatory system (principal); Z95.828 Presence of other vascular implants and grafts; Z98.890 Other specified postprocedural states
CPT/HCPCS: 93880